=== PATIENT | male | born 1940 | race Caucasian/White ===

== ENCOUNTER 2019-09-03 16:53 | Emergency (ER) | payer MEDICARE, OTHER, SELFPAY ==
[2019-09-03 17:09] VITALS: BP 143/75; PULSE 55; RESP 16; TEMP 36.6; O2SAT 97
--- NOTE | 2019-09-03 17:24 | ED.SKABFB ---
HPI - Skin/Abscess/Foreign Bdy General Chief complaint: Skin/Abscess/Foreign Body Stated complaint: Tick Bite Time Seen by Provider: 09/03/19 17:10 Source: patient and RN notes reviewed Mode of arrival: ambulatory Limitations: no limitations History of Present Illness HPI narrative: Patient presents today complaining of redness, swelling, and pain to the right groin/anterior hip area. He was bit by a tick 3 days ago. The tick was embedded in his skin for approximately 48 hours, and was removed yesterday afternoon. Since this time, patient states the area has become more red and firm and describes the pain as burning and stinging. He has tried no medication for symptoms prior to arrival. Denies fever. MD complaint: insect bite/sting Related Data Home Medications Medication Instructions Recorded Confirmed amlodipine 09/03/19 aspirin [Adult Low Dose Aspirin] 81 mg PO DAILY 09/03/19 09/03/19 losartan 09/03/19 Allergies Allergy/AdvReac Type Severity Reaction Status Date / Time naproxen Allergy Unknown Unknown Verified 09/03/19 17:17 pneumococcal vaccine Allergy Unknown Rash Verified 09/03/19 17:17 Review of Systems Review of Systems: Narrative: CONSTITUTIONAL: Denies body aches, fever, chills, or sweats. EYES: Denies visual changes, redness, or discharge. ENT: Denies rhinorrhea, congestion, sore throat, or otalgia. CARDIOVASCULAR: Denies chest pain, palpitations, or edema. RESPIRATORY: Denies cough or dyspnea. GASTROINTESTINAL: Denies abdominal pain, nausea, vomiting, or diarrhea. GENITOURINARY: Denies dysuria or hematuria. SKIN: Redness, pain, tick bite to right groin MUSCULOSKELETAL: Denies back pain, joint pain, or myalgia. NEUROLOGIC: Denies headache, numbness, tingling, or weakness. PSYCH: Denies depression or anxiety. [facility] Past Medical History Medical History (Updated 09/03/19 @ 17:28 by Ni Trejo, [facility], ) Hypertension Family History Family History (Updated 01/23/16 @ 23:19 by DOCTOR UNKNOWN) Grandparent Cerebrovascular accident Mother Family history of diabetes mellitus in first degree relative Other Malignant neoplasm of prostate Social History Social History Smoking status: Former smoker Smoking end date: 06/27/78 Alcohol intake: current Comments At time of signature, I have reviewed and agree with nursing past medical, surgical, social and family history unless otherwise noted. Please see nursing chart for further information. There is no relevant family history pertinent to the presenting complaint Exam Narrative: Exam Narrative: GENERAL: Well-appearing, well-nourished, and in no acute distress. HEAD: Normocephalic, atraumatic. EYES: EOMI. No redness or drainage. Conjunctivae normal. ENT: Mucous membranes pink and moist. NECK: Normal AROM. Supple. No lymphadenopathy. CHEST: No respiratory distress. EXTREMITIES: Normal range of motion. No edema. SKIN: Warm, dry. 2 cm area of mild erythema and induration to the right anterior hip/right groin, with small scab in the center. No fluctuance noted. Mildly tender to palpation. No bull's-eye lesion. NEURO: No focal deficits. Alert and oriented x3. Gait steady. PSYCH: Normal affect. No signs of depression or anxiety. Course Vital Signs Vital signs: Vital Signs Temperature 97.9 F 09/03/19 17:09 Pulse Rate 55 L 09/03/19 17:09 Respiratory Rate 16 09/03/19 17:09 Blood Pressure 143/75 H 09/03/19 17:09 Pulse Oximetry 97 09/03/19 17:09 Temperature 97.9 F 09/03/19 17:09 Pulse Rate 55 L 09/03/19 17:09 Respiratory Rate 16 09/03/19 17:09 Blood Pressure 143/75 H 09/03/19 17:09 Pulse Oximetry 97 09/03/19 17:09 Reviewed. Pt has been instructed to follow up with his PCP regarding his elevated blood pressure today. MDM - Skin/Abscess/Foreign Bdy Differential Diagnosis Differential diagnosis: Likely abscess of skin or subcutaneous tissue, urticaria, cellulitis, insect bites and i
== END 2019-09-03 17:33 | disposition home or self-care (01) ==
PROVIDERS: Emergency Provider Nurse Practitioner; PCP Family Medicine
DX: S70.261A Insect bite (nonvenomous), right hip, initial encounter (principal); L03.115 Cellulitis of right lower limb; W57.XXXA Bitten or stung by nonvenomous insect and other nonvenomous arthropods, initial encounter; I10 Essential (primary) hypertension; N40.0 Benign prostatic hyperplasia without lower urinary tract symptoms
CPT/HCPCS: 99213; G0463

== ENCOUNTER 2020-02-12 14:51 | Outpatient (CLI) | payer MEDICARE, OTHER, SELFPAY ==
[2020-02-12 15:13] LABS: Basophils Absolute Auto 0.1 K/mm3 (0.0-0.1); Basophils Percent Auto 1.2 % (0.2-1.2); Eosinophils Absolute Auto 0.4 K/mm3 (0-0.3); Eosinophils Percent Auto 4.4 % (0-4.4); Hematocrit 41.6 % (42.0-52.0); Hemoglobin 14.4 g/dL (14.0-18.0); Immature Granulocyte Absolute 0.02 K/mm3 (0.00-0.031); Immature Granulocyte Percent A 0.2 % (0-0.5); Lymphocytes Absolute Auto 2.28 K/mm3 (0.9-3.2); Mean Corpuscular HGB Conc 34.6 g/dl (32-36); Mean Corpuscular Hemoglobin 29.9 pg (26-34); Mean Corpuscular Volume 86.5 fl (80-100); Mean Platelet Volume 10.9 fl (7.4-10.4); Monocytes Absolute Auto 0.8 K/mm3 (0.1-0.6); Monocytes Percent Auto 9.2 % (2.6-8.5); Neutrophils Absolute Auto 4.9 K/mm3 (1.3-6.7); Platelet Count Result 203 k/mm3 (150-375); Red Blood Count 4.81 M/mm3 (4.6-6.20); Red Cell Distribution Width 15.3 % (11.5-14.5); White Blood Count 8.5 K/mm3 (4.5-10.0)
[2020-02-12 15:23] LABS: Anion Gap 7 mmol/L (8-16); Blood Urea Nitrogen 26 mg/dL (9-20); Calcium 9.4 mg/dL (8.4-10.2); Carbon Dioxide 25 mmol/L (22-30); Chloride 101 mmol/L (98-107); Estimated Glomerular Filt Rate > 60; Glucose 94 mg/dL (75-110); Potassium 4.4 mmol/L (3.4-5.0); Sodium 133 mmol/L (137-145)
== END 2020-02-12 14:52 | disposition home or self-care (01) ==
PROVIDERS: PCP Family Medicine; Visit Provider Family Medicine
DX: I10 Essential (primary) hypertension (principal)
CPT/HCPCS: 36415; 80048; 84443; 85025

== ENCOUNTER 2020-06-03 12:10 | Emergency (ER) | payer MEDICARE, OTHER, SELFPAY ==
--- NOTE | ~2020-06-03 | XR_ITS ---
EXAMINATION: XR elbow LT min 3V DATE: 06/03/2020 12:43 INDICATION: Left elbow swelling. TECHNIQUE: 4 views of left elbow were obtained. COMPARISON: None. FINDINGS: Bone alignment is normal. No fracture. There is mild elbow joint osteoarthritis. No elbow j oint effusion. There is soft tissue swelling overlying olecranon, consistent with bursitis. IMPRESSION: 1. Mild left elbow osteoarthritis. 2. Olecranon bursitis. Reviewed, dictated and finalized at location B. FRONT END DEVELOPER
[2020-06-03 12:25] VITALS: BP 143/80; PULSE 52; RESP 18; TEMP 36.2; O2SAT 99
--- NOTE | 2020-06-03 12:42 | ED.EXTPRO ---
HPI - Extremity Problem General Chief complaint: Extremity Problem,Nontraumatic Stated complaint: Left elbow pain Time Seen by Provider: 06/03/20 12:35 Source: patient and RN notes reviewed Mode of arrival: ambulatory Limitations: no limitations History of Present Illness HPI Narrative: 79-year-old male presents to express care with complaints of swelling and discomfort to the left elbow for the past 2-3 weeks. Patient has noted swelling to the left olecranon process with no open areas to skin noted, no warmth or redness noted. Patient states that he had swelling similar to this after spider bite in December and it eventually went down, states that he had some redness around bite but never had any diffuse warmth or redness to elbow bursa. Patient reports that he has been doing some maintenance and cleaning on his RV and maybe has overdone it with his elbow. Patient states that he has not taken any OTC medications for discomfort. MD Complaint: joint swelling (left elbow) and joint paint Onset (ago): week(s) (2-3) Pain Consistency: intermittent Location: left and elbow Severity scale (1-10): 2 Quality: aching Radiation: none Relieving factors: rest Exacerbating factors: range of motion Associated symptoms: denies other symptoms Context: other (previous episode of left elbow bursa swelling) Related Data Home Medications Medication Instructions Recorded Confirmed aspirin [Adult Low Dose Aspirin] 81 mg PO DAILY 09/03/19 06/03/20 finasteride 5 mg PO DAILY 06/03/20 06/03/20 Allergies Allergy/AdvReac Type Severity Reaction Status Date / Time naproxen Allergy Unknown Unknown Verified 06/03/20 12:30 pneumococcal vaccine Allergy Unknown Rash Verified 06/03/20 12:30 PNEUMONIA VACCINE Allergy Severe SWELLING Uncoded 06/03/20 12:30 AND REDNESS. Review of Systems Review of Systems: Narrative: CONSTITUTIONAL: Denies fever, chills, or sweats. EYES: Denies visual changes, redness, or discharge. ENT: Denies rhinorrhea, congestion, sore throat, or otalgia. CARDIOVASCULAR: Denies chest pain, palpitations, or peripheral edema. RESPIRATORY: Denies cough or dyspnea. GASTROINTESTINAL: Denies abdominal pain, nausea, vomiting, or diarrhea. GENITOURINARY: Denies dysuria or hematuria. SKIN: Denies rash or itching. MUSCULOSKELETAL: Denies back pain,positive for left elbow joint pain, or myalgia. NEUROLOGIC: Denies headache, numbness, or weakness. PSYCHIATRIC: Denies anxiety or depression. All systems reviewed & are unremarkable except as noted in HPI and below PMFSH Past Medical History Medical History (Updated 06/03/20 @ 14:02 by Mellissa Bang NP) Enlarged prostate GERD (gastroesophageal reflux disease) Hypertension Stroke Surgical History Surgical History History of hernia repair History of knee surgery History of prostate surgery UROLIFT procedure History of shoulder surgery Family History Family History Grandparent Cerebrovascular accident Mother Family history of diabetes mellitus in first degree relative Other Malignant neoplasm of prostate Social History Social History Smoking status: Former smoker Smoking end date: 06/27/78 Alcohol intake: current Exam Narrative: Exam Narrative: GENERAL: Well-appearing, well-nourished, and in no acute distress. HEAD: Normocephalic, atraumatic. EYES: PERRLA and EOMI. ENT: Nares clear, no rhinorrhea or epistaxis. Mucous membranes moist. NECK: Supple. No lymphadenopathy CHEST: Clear to auscultation. No respiratory distress. SaO2 99% on room air HEART: Regular rate and rhythm. No murmur heard. Normal peripheral pulses. ABDOMEN: Soft, nontender, nondistended, normal active bowel sounds. EXTREMITIES: Normal range of motion. No acute edema except to bursa of left elbow which is swollen and tender to palpatio
== END 2020-06-03 13:18 | disposition home or self-care (01) ==
PROVIDERS: Emergency Provider Registered Nurse; PCP Family Medicine
DX: M70.22 Olecranon bursitis, left elbow (principal); M19.022 Primary osteoarthritis, left elbow; Z87.891 Personal history of nicotine dependence; N40.0 Benign prostatic hyperplasia without lower urinary tract symptoms; K21.9 Gastro-esophageal reflux disease without esophagitis; I10 Essential (primary) hypertension; Z86.73 Personal history of transient ischemic attack (TIA), and cerebral infarction without residual deficits; Z79.82 Long term (current) use of aspirin
CPT/HCPCS: 73080; 99213; G0463

== ENCOUNTER 2020-07-23 09:19 | Outpatient (CLI) | payer MEDICARE, OTHER, SELFPAY ==
[2020-07-23 09:56] LABS: Basophils Absolute Auto 0.1 K/mm3 (0.0-0.1); Basophils Percent Auto 1.1 % (0.2-1.2); Eosinophils Absolute Auto 0.6 K/mm3 (0-0.3); Eosinophils Percent Auto 7.8 % (0-4.4); Hematocrit 43.5 % (42.0-52.0); Hemoglobin 14.6 g/dL (14.0-18.0); Immature Granulocyte Absolute 0.03 K/mm3 (0.00-0.031); Immature Granulocyte Percent A 0.4 % (0-0.5); Lymphocytes Percent Auto 28.4 % (18.3-44.2); Mean Corpuscular HGB Conc 33.6 g/dl (32-36); Mean Corpuscular Volume 86.5 fl (80-100); Mean Platelet Volume 10.2 fl (7.4-10.4); Monocytes Absolute Auto 0.8 K/mm3 (0.1-0.6); Monocytes Percent Auto 10.7 % (2.6-8.5); Neutrophils Absolute Auto 3.8 K/mm3 (1.3-6.7); Neutrophils Percent Auto 51.6 % (45.5-73.1); Platelet Count Result 188 k/mm3 (150-375); Red Blood Count 5.03 M/mm3 (4.6-6.20); Red Cell Distribution Width 14.6 % (11.5-14.5); White Blood Count 7.4 K/mm3 (4.5-10.0)
[2020-07-23 10:12] LABS: Anion Gap 5 mmol/L (8-16); Blood Urea Nitrogen 24 mg/dL (9-20); Carbon Dioxide 29 mmol/L (22-30); Chloride 96 mmol/L (98-107); Cholesterol 159 mg/dL (0-200); Estimated Glomerular Filt Rate > 60; Glucose 107 mg/dL (75-110); HDL Direct 44 mg/dL; Potassium 4.9 mmol/L (3.4-5.0); Sodium 130 mmol/L (137-145); Triglycerides 77 mg/dL (<150)
[2020-07-23 10:23] LABS: LDL Cholesterol Direct 85 mg/dL
== END 2020-07-23 09:20 | disposition home or self-care (01) ==
PROVIDERS: PCP Family Medicine; Visit Provider Family Medicine
DX: I10 Essential (primary) hypertension (principal); Z13.220 Encounter for screening for lipoid disorders
CPT/HCPCS: 36415; 80048; 80061; 84443; 85025

== ENCOUNTER 2020-08-26 17:10 | Observation (INO) | payer MEDICARE, OTHER, SELFPAY ==
--- NOTE | ~2020-08-26 | MR_ITS ---
EXAMINATION: MR brain/brain stem wo con DATE: 08/27/2020 08:23 INDICATION: Right hemiparesis. TECHNIQUE: Magnetic resonance imaging (MRI) of the brain and brainstem was performed without intraven ous contrast. Sequences included sagittal and axial T1-weighted FSE, axial diffusion-weighted FS EPI, axial T2*-weighted GRE, axial T2-weighted FLAIR Propeller, and axial T2-weighted Propeller. Apparent diffusion coefficient (ADC) maps were created. COMPARISON: Head CT 08/26/2020 FINDINGS: There are scattered areas of nonspecific increased T2-weighted signal intensity in the cere bral white matter and grace. There is no intracranial hemorrhage, acute infarction, or abnormal intrac ranial mass lesion. The ventricles are normal in size. There is mild mucosal thickening in the parana allie sinuses. There are likely changes of ocular lens replacement surgeries. The mastoid air cells are normal. IMPRESSION: 1. Moderate nonspecific cerebral white matter disease and pontine disease, which likely represents ch ronic small vessel ischemic disease. Reviewed, dictated and finalized at location A. OMER CONTACT SALES ASSOCIATE IMPRESSION: 1. Moderate nonspecific cerebral white matter disease and pontine disease, whic h likely represents chronic small vessel ischemic disease.
--- NOTE | ~2020-08-26 | CT_ITS ---
EXAMINATION: CT brain wo con INDICATION: Right-sided weakness and headache COMPARISON: None TECHNIQUE: Standard unenhanced head CT. The dose-length product (DLP) was 681.00 mGy-cm. The mA was a djusted according to patient size. Iterative reconstruction technique was employed. FINDINGS: There is no acute intraparenchymal hemorrhage. No evidence of mass lesion. No evidence of a cute infarction. There is mild periventricular and subcortical hypodensity probably related to small vessel ischemic disease. There is mild prominence of the sulci and ventricles related to cerebral atr ophy. Intracranial calcified cerebral atherosclerosis is noted. There are no extra-axial collections. There is no mass effect or midline shift. Changes in the globes are likely from ocular lens surgery. The visualized sinuses and mastoid air cells are well aerated. IMPRESSION: 1. No acute intracranial abnormality. 2. Age related findings. As per stroke protocol, I called these results to the Emergency Department, and discussed with Dr. Ralf MD at 1737 hours on 08/26/2020. Reviewed, dictated and finalized at location A. FACTURING CLERK IMPRESSION: 1. No acute intracranial abnormality. 2. Age related findings. As per stroke protocol, I called these results to the Emergency Department, and discussed with Dr. Brenda Aguillon MD at 1737 hours on 08/26/2020.
--- NOTE | ~2020-08-26 | XR_ITS ---
EXAMINATION: XR chest 1V portable INDICATION: Right-sided weakness and confusion TECHNIQUE: Portable AP chest at 1745 hours COMPARISON: 11/04/2016 FINDINGS: There are patchy opacities of the mid and lower lung zones. There is a possible nodule of t he left upper lobe projecting over the medial aspect of the first rib. No pleural effusion or pneumot horax is identified. The heart size is normal for technique. IMPRESSION: 1. Patchy opacities of the mid and lower lung zones, consistent with atelectasis versus pneumonia. 2. Possible nodule of the left upper lobe. Follow-up with nonemergent CT is recommended. Reviewed, dictated and finalized at location A. PARTS COUNTER PERSON IMPRESSION: 1. Patchy opacities of the mid and lower lung zones, consistent with atelectasi s versus pneumonia. 2. Possible nodule of the left upper lobe. Follow-up with nonemergent CT is rec ommended.
--- NOTE | ~2020-08-26 | CT_ITS ---
EXAMINATION: CTA brain carotid DATE: 08/26/2020 18:19 INDICATION: Right-sided weakness TECHNIQUE: Computed tomographic angiography (CTA) of the head was performed without and with 100 mL O mnipaque-350 intravenous contrast. CTA of the neck was performed with intravenous contrast. The dose- length product was 1283.54 mGy-cm. Maximum intensity projection and volume rendered 3D-reconstruction s were created by the technologist on a separate workstation. Automated exposure control and iterativ e reconstruction technique were employed. COMPARISON: Noncontrast CT from today FINDINGS: HEAD CTA: There is no acute intraparenchymal hemorrhage. No evidence of mass lesion. No evidence of a cute infarction. There is mild periventricular and subcortical hypodensity probably related to small vessel ischemic disease. There is mild prominence of the sulci and ventricles related to cerebral atr ophy. Intracranial calcified cerebral atherosclerosis is noted. There are no extra-axial collections. There is no mass effect or midline shift. The orbits and soft tissues are unremarkable. There is par tial opacification of the left maxillary sinus. There is no significant stenosis of the basilar artery or posterior cerebral arteries. There is no si gnificant stenosis of the intracranial internal carotid arteries or the anterior or middle cerebral a rteries. The anterior communicating artery artery is normal. The posterior communicating arteries are hypoplastic. There is no aneurysm. NECK CTA: There is a 3 mm nodule in the left lobe of the thyroid. The submandibular and parotid gland s are symmetric. There is no lymphadenopathy. There are no masses identified. The airway is unremarka ble. There are no osseous abnormalities. The superior mediastinum is unremarkable. There is a 2.6 x 1 .1 cm spiculated opacity of the left lung apex. There is 0% stenosis of the proximal right internal carotid artery relative to normal distal artery l umen diameter (NASCET criteria). There is 0% stenosis of the proximal left internal carotid artery re lative to normal distal artery lumen diameter. IMPRESSION: 1. No acute intracranial abnormality. Hypoplastic posterior communicating arteries. 2. 0% stenosis of the proximal right internal carotid artery relative to normal distal artery lumen d iameter (NASCET criteria). 3. 0% stenosis of the proximal left internal carotid artery relative to normal distal artery lumen di ameter. 4. Possible nodule versus scarring in the left lung apex. Recommend follow-up low-dose chest CT in th ree months. Reviewed, dictated and finalized at location A. EY ASSOCIATE IMPRESSION: 1. No acute intracranial abnormality. Hypoplastic posterior communicating arter ies. 2. 0% stenosis of the proximal right internal carotid artery relative to normal distal artery lumen diameter (NASCET criteria). 3. 0% stenosis of the proximal left internal carotid artery relative to normal distal artery lumen diameter. 4. Possible nodule versus scarring in the left lung apex. Recommend follow-up l ow-dose chest CT in three months.
[2020-08-26 17:14] VITALS: BP 158/93; PULSE 54; RESP 16; TEMP 36.3; O2SAT 98
--- NOTE | 2020-08-26 17:18 | ECG_ITS ---
Measurements Intervals [place] Rate: 53 P: -12 ME: 176 QRS: -5 QRSD: 97 T: 23 QT: 402 QTc: 380 Interpretive Statements SINUS BRADYCARDIA ATRIAL PREMATURE COMPLEX BASELINE ARTIFACT- I, II, III, AVF BORDERLINE ECG Electronically Signed On 08-26-2020 20:32:41 RURAL SOCIOLOGIST by Oc Felder D.O.
--- NOTE | 2020-08-26 17:36 | ED.GENADULT ---
HPI - General Adult General Chief complaint: Neuro Symptoms/Deficit Stated complaint: reports headache and difficulty speaking Time Seen by Provider: 08/26/20 17:24 Source: patient and family History of Present Illness HPI narrative: Patient is a 80 y/o male complaining of slurred speech, left sided headache and right sided weakness. He states that his slurred speech started around 11:00 AM and resolved after a few minutes. Shortly after that, he developed a sharp headache behind his left eye. He rates his headache as 9/10. He took Tylenol which did not help. He went out with his dog around 12:00 PM and then noticed some weakness in right arm and right leg. He is not sure about the exact time of onset of weakness. His weakness has improved, but not completely resolved. Related Data Home Medications Medication Instructions Recorded Confirmed finasteride 5 mg PO DAILY 06/03/20 07/17/20 aspirin 81 mg tablet,delayed 81 mg PO DAILY 07/01/20 07/17/20 release Allergies Allergy/AdvReac Type Severity Reaction Status Date / Time naproxen Allergy Unknown Unknown Verified 08/26/20 17:33 pneumococcal vaccine Allergy Unknown Rash Verified 08/26/20 17:33 Review of Systems Constitutional: Constitutional: Denies chills, Denies fever(s), Reports headache(s) and Reports weakness Eyes: Eyes: Denies blurry vision ENT: Reports headache(s) and Denies neck pain Cardiovascular: Cardiovascular: Denies chest pain and Denies dyspnea Respiratory: Respiratory: Denies cough and Denies dyspnea Gastrointestinal: Gastrointestinal: Denies abdominal pain, Denies diarrhea, Denies nausea and Denies vomiting Genitourinary: Genitourinary: Denies hematuria and Denies dysuria Musculoskeletal: Musculoskeletal: Denies back pain and Denies neck pain Neurologic: Reports Abnormal speech present, Reports headache(s) and Reports weakness PMFSH Past Medical History Medical History Arthritis BMI 31.0-31.9,adult Coughing Diarrhea Dizziness Enlarged prostate GERD (gastroesophageal reflux disease) Hypertension Light headedness Screen for colon cancer Stroke Surgical History Surgical History History of hernia repair History of knee surgery History of prostate surgery UROLIFT procedure History of shoulder surgery Family History Family History Grandparent Cerebrovascular accident Mother Family history of diabetes mellitus in first degree relative Other Malignant neoplasm of prostate Social History Social History Smoking status: Former smoker Smoking end date: 06/27/78 Alcohol intake: current Exam Const: General: no acute distress and well developed Orientation/consciousness: oriented to person, oriented to place, oriented to time and patient oriented x3 HENMT: Head: normocephalic Ears: external ears normal General nose exam: Normal external nose present Eyes: General: appearance normal, both eyes and all related structures Conjunctivae: conjunctivae normal Neck: Neck: normal visual inspection and full ROM Chest: Chest palpation & inspection: normal inspection of the chest and no tenderness Resp: Effort & Inspection: normal respiratory effort Auscultation: clear to auscultation bilaterally Cardio: Rate: regular rate Rhythm: regular rhythm GI: GI Palp: No abdominal tenderness and Yes Soft to palpation Skin: General skin exam: normal color and turgor normal Neuro: General: oriented to person, oriented to place, oriented to time and patient oriented x3 Cognition (Neuro): normal cognition Extrem: General: normal to inspection, full ROM and no pedal edema Psych: Appearance: grossly normal Mental Status: mental status grossly normal Affect: normal affect Course Consultations Consultation #1: Discussed kellie
[2020-08-26 17:37] LABS: Glucose Point of Care 101 (65-105)
[2020-08-26 17:38] LABS: Basophils Absolute Auto 0.1 K/mm3 (0.0-0.1); Eosinophils Absolute Auto 0.4 K/mm3 (0-0.3); Eosinophils Percent Auto 4.8 % (0-4.4); Hematocrit 42.4 % (42.0-52.0); Hemoglobin 14.7 g/dL (14.0-18.0); Immature Granulocyte Absolute 0.03 K/mm3 (0.00-0.031); Immature Granulocyte Percent A 0.3 % (0-0.5); Mean Corpuscular HGB Conc 34.7 g/dl (32-36); Mean Corpuscular Hemoglobin 29.7 pg (26-34); Mean Corpuscular Volume 85.7 fl (80-100); Mean Platelet Volume 10.6 fl (7.4-10.4); Monocytes Absolute Auto 0.9 K/mm3 (0.1-0.6); Monocytes Percent Auto 10.2 % (2.6-8.5); Neutrophils Absolute Auto 5.6 K/mm3 (1.3-6.7); Neutrophils Percent Auto 61.7 % (45.5-73.1); Platelet Count Result 200 k/mm3 (150-375); Red Blood Count 4.95 M/mm3 (4.6-6.20); Red Cell Distribution Width 14.8 % (11.5-14.5); White Blood Count 9.1 K/mm3 (4.5-10.0)
[2020-08-26 17:39] VITALS: BP 185/95; PULSE 61; RESP 11; O2SAT 96
[2020-08-26 17:50] LABS: Anion Gap 8 mmol/L (8-16); Blood Urea Nitrogen 23 mg/dL (9-20); Calcium 9.7 mg/dL (8.4-10.2); Carbon Dioxide 26 mmol/L (22-30); Chloride 96 mmol/L (98-107); Estimated CRCL calculation 58 ml/min; Estimated Glomerular Filt Rate > 60; Glucose 108 mg/dL (75-110); Potassium 4.2 mmol/L (3.4-5.0); Sodium 130 mmol/L (137-145)
[2020-08-26 17:51] LABS: INR 0.9; Prothrombin Time 12.3 Seconds (11.1-14.7)
[2020-08-26 17:52] LABS: Partial Thromboplastin Time 27.3 SECONDS (22.3-36.8)
[2020-08-26 18:02] LABS: Troponin I < 0.012 ng/mL (0.000-0.034)
[2020-08-26 18:31] VITALS: BP 189/89; PULSE 53; RESP 16; O2SAT 97
[2020-08-26 19:39] VITALS: BP 188/90; PULSE 58; RESP 16; O2SAT 97
[2020-08-26 21:10] VITALS: BP 171/80; PULSE 62; RESP 18; TEMP 36; O2SAT 98; BMI 31.8
--- NOTE | 2020-08-26 21:10 | ADMGEN ---
This patient, Thien iTneo Ysabel, was admitted to Medical Room 341-01. Patient/family oriented to hospital policies and general routines including ID bracelet, bed and alarms, visiting hours, pain management, procedures, bathroom and other care routines, personal items, smoking policy, room service/diet, and visiting hours. Information on how to activate the Rapid Response Team has been discussed. Patient/Family are encouraged to report perceived risks to care and to ask questions if they do not understand what they are told or what they should do.
[2020-08-26 22:27] VITALS: PULSE 66
[2020-08-27] VITALS: BP 140/76; PULSE 53; PULSE 92; RESP 16; TEMP 36.4; O2SAT 97
--- NOTE | 2020-08-27 00:14 | PM.IMHP ---
H&P: HPI History of Present Illness Date/Time: 08/27/20 00:14 Chief Complaint: Right-sided weakness Narrative: Thien Tineo Sr. is a 80 year old male of having a a past medical history of a TIA in the past. The patient takes a daily baby aspirin. The patient stated that 30 years ago he had a mild TIA the to come couple days to get over but had no residual. The patient does have a history of hypertension. The patient came into the emergency room today with slurred speech, left sided headache and right-sided weakness. The patient stated that he took Tylenol and naproxen to help with the headache. His speech was slurred around 11:00 a.m. and then resolved after few minutes. Shortly after that he developed a short headache behind his left eye his pain was 9/10. The Tylenol did not help him. The patient would not toe walk his dog around 12:00 p.m. and that is when he noticed some weakness to his right arm and right leg. He has had some back pain in the past and had received treatment from a chiropractor and physical therapy which resolved the lower back pain. Head and neck CTA was read as 1. No acute intracranial abnormality. Hypoplastic posterior communicating arteries. 2. 0% stenosis of the proximal right internal carotid artery relative to normal distal artery lumen diameter (NASCET criteria). 3. 0% stenosis of the proximal left internal carotid artery relative to normal distal artery lumen diameter. 4. Possible nodule versus scarring in the left lung apex. Recommend follow-up low-dose chest CT in three months. Chest x-ray was read as 1. Patchy opacities of the mid and lower lung zones, consistent with atelectasis versus pneumonia. 2. Possible nodule of the left upper lobe. Follow-up with nonemergent CT is recommended. Head CT 1. No acute intracranial abnormality. 2. Age related findings. The patient was given Fioricet without any relief. Patient is being admitted to observation on the date of service of 08/26/2020 Review of Systems Review of Systems: All systems reviewed & are unremarkable except as noted in HPI and below Constitutional: Constitutional: Reports as per HPI and Reports no additional constitutional complaints Eyes: Eyes: Reports as per HPI and Reports no additional eye complaints ENT: Reports system reviewed and no additional complaints, except as documented and Reports Normal hearing present Cardiovascular: Cardiovascular: Reports no additional cardiovascular complaints Respiratory: Respiratory: Reports no additional respiratory complaints and Reports no additional respiratory complaints Gastrointestinal: Gastrointestinal: Reports as per HPI and Reports no additional gastrointestinal complaints Musculoskeletal: Musculoskeletal: Reports no additional musculoskeletal complaints Integumentary/Breasts: Skin/Breast: Reports system reviewed and no additional complaints, except as docu and Reports as per HPI Neurologic: Reports system reviewed and no additional complaints, except as documented, Reports as per HPI and Reports Normal hearing present Psychiatric: Psychiatric: Reports no additional psychiatric complaints and Reports as per HPI Endocrine: Endocrine: Reports no additional endocrine complaints Hematologic/Lymphatic: Hematologic/Lymphatic: Reports no additional hematologic/lymphatic complaints Allergic/Immunologic: Allergic/Immunologic: Reports no additional allergic/immunologic complaints [facility] Past Medical History Medical History Arthritis BMI 31.0-31.9,adult Coughing Diarrhea Dizziness Enlarged prostate GERD (gastroesophageal reflux disease) Hypertension Light headedness Screen for colon cancer Stroke TIA 30 years ago Surgical History Surgical History History of hernia repair History of knee surgery History of prostate surgery UROLIFT procedure History of shoulder surgery Famil
[2020-08-27 04:00] VITALS: BP 142/80; PULSE 54; PULSE 92; RESP 14; TEMP 36.8; O2SAT 97
--- NOTE | 2020-08-27 06:00 | ECHO_ITS ---
Patient Info Name: Thien Tineo Age: 80 years : 1940 Gender: Male Ht: 70 in Wt: 222 lbs BSA: 2.26 m2 HR: 54 bpm BP: 142 / 80 mmHg Technical Quality: Good Exam Date: 08/27/2020 10:55 AM Exam Location: [facility] Pulmonary Exam Room: 341 Patient Status: Inpatient Admit Date: 08/26/2020 Staff Ordering Physician: Brenda Aguillon MD Sales Team Recruiter: Gwen Abbott RDCS Attending Provider: El Phelps MD Referring Physician: Pal CLAYTON; Exam Type: CA echo doppler color flow Study Info Indications - right side weakness slurred speech Complete two-dimensional, color flow and Doppler transthoracic echocardiogram is performed. Summary 1. Complete two-dimensional, color flow and Doppler transthoracic echocardiogram is performed. 2. Left ventricular chamber dimension is normal. 3. Left ventricular systolic function is normal, estimated at 60-65%. 4. The left ventricular diastolic function is grade I diastolic dysfunction. 5. E/e' 8 is minimally elevated. 6. Left atrial chamber dimension is mildly enlarged. 7. Right atrial chamber dimension is mildly enlarged. 8. There is mild aortic valve sclerosis. 9. There is mild mitral valve regurgitation. 10. There is mild tricuspid valve regurgitation. 11. No pulmonary hypertension, estimated pulmonary arterial systolic pressure is 39 mmHg. 12. There is mild pulmonic regurgitation. Left Ventricle E/e' 8 is minimally elevated. Left ventricular chamber dimension is normal. Left ventricular systolic function is normal, estimated at 60-65%. The left ventricular diastolic function is grade I diastolic dysfunction. Right Ventricle Right ventricular chamber dimension is normal. Right ventricular systolic function is normal. Left Atria Left atrial chamber dimension is mildly enlarged. Right Atria Right atrial chamber dimension is mildly enlarged. Aortic Valve The aortic valve is trileaflet. There is mild aortic valve sclerosis. There is no aortic valve stenosis. There is no aortic valve regurgitation. Pulmonic Valve There is mild pulmonic regurgitation. Mitral Valve There is no mitral valve stenosis. There is mild mitral valve regurgitation. Tricuspid Valve There is mild tricuspid valve regurgitation. No pulmonary hypertension, estimated pulmonary arterial systolic pressure is 39 mmHg. Pericardium/Pleural There is no pericardial effusion. Inferior Vena Cava Normal inferior vena cava with >50% collapse upon inspiration consistent with normal right atrial pressure, 5 mmHg. Aorta The aortic root size at the sinus of Valsalva is normal. Left Ventricular Outflow Tract Name Value Normal LVOT 2D LVOT Diameter 2.1 cm LVOT Doppler LVOT Peak Gradient 6 mmHg LVOT Mean Gradient 3 mmHg LVOT VTI 26 cm LVOT VTI/AV VTI Ratio 0.6 LVOT Stroke Volume 90 ml LVOT CO 16.4 l/min LVOT CI 7.2 l/min/m2 Pulmonic Valve -----
[2020-08-27] MEDS: OPTI-GEN TAB 1 TABLET PO (08:51)
[2020-08-27] MEDS: ASPIRIN 81 MG ENTERIC TABLET PO (08:51)
[2020-08-27] MEDS: FINASTERIDE 5 MG TABLET PO (08:51)
[2020-08-27] MEDS: LOSARTAN POTASSIUM 50 MG TABLET PO (08:51)
[2020-08-27 12:00] VITALS: PULSE 56
[2020-08-27 14:00] VITALS: BP 130/85; PULSE 72; RESP 16; TEMP 36.7; O2SAT 99
--- NOTE | 2020-08-27 14:19 | PM.DS ---
DS: Admitting Diagnosis Admitting Diagnosis Admitting Diagnosis: Chief Complaint: Right-sided weakness DS: Summary Hospital Course Reason for hospitalization: Chief Complaint: Right-sided weakness Narrative: Thein Tineo Sr. is a 80 year old male of having a a past medical history of a TIA in the past. The patient takes a daily baby aspirin. The patient stated that 30 years ago he had a mild TIA the to come couple days to get over but had no residual. The patient does have a history of hypertension. The patient came into the emergency room today with slurred speech, left sided headache and right-sided weakness. The patient stated that he took Tylenol and naproxen to help with the headache. His speech was slurred around 11:00 a.m. and then resolved after few minutes. Shortly after that he developed a short headache behind his left eye his pain was 9/10. The Tylenol did not help him. The patient would not toe walk his dog around 12:00 p.m. and that is when he noticed some weakness to his right arm and right leg. He has had some back pain in the past and had received treatment from a chiropractor and physical therapy which resolved the lower back pain. Head and neck CTA was read as 1. No acute intracranial abnormality. Hypoplastic posterior communicating arteries. 2. 0% stenosis of the proximal right internal carotid artery relative to normal distal artery lumen diameter (NASCET criteria). 3. 0% stenosis of the proximal left internal carotid artery relative to normal distal artery lumen diameter. 4. Possible nodule versus scarring in the left lung apex. Recommend follow-up low-dose chest CT in three months. Chest x-ray was read as 1. Patchy opacities of the mid and lower lung zones, consistent with atelectasis versus pneumonia. 2. Possible nodule of the left upper lobe. Follow-up with nonemergent CT is recommended. Head CT 1. No acute intracranial abnormality. 2. Age related findings. The patient was given Fioricet without any relief. Patient is being admitted to observation on the date of service of 08/26/2020 Hospital Course: Chief Complaint: Right-sided weakness Narrative: Thien Tineo Sr. is a 80 year old male of having a a past medical history of a TIA in the past. The patient takes a daily baby aspirin. The patient stated that 30 years ago he had a mild TIA the to come couple days to get over but had no residual. The patient does have a history of hypertension. The patient came into the emergency room today with slurred speech, left sided headache and right-sided weakness. The patient stated that he took Tylenol and naproxen to help with the headache. His speech was slurred around 11:00 a.m. and then resolved after few minutes. Shortly after that he developed a short headache behind his left eye his pain was 9/10. The Tylenol did not help him. The patient would not toe walk his dog around 12:00 p.m. and that is when he noticed some weakness to his right arm and right leg. He has had some back pain in the past and had received treatment from a chiropractor and physical therapy which resolved the lower back pain. Head and neck CTA was read as 1. No acute intracranial abnormality. Hypoplastic posterior communicating arteries. 2. 0% stenosis of the proximal right internal carotid artery relative to normal distal artery lumen diameter (NASCET criteria). 3. 0% stenosis of the proximal left internal carotid artery relative to normal distal artery lumen diameter. 4. Possible nodule versus scarring in the left lung apex. Recommend follow-up low-dose chest CT in three months. Chest x-ray was read as 1. Patchy opacities of the mid and lower lung zones, consistent with atelectasis versus pneumonia. 2. Possible nodule of the left upper lobe. Follow-up with nonemergent CT is recommended. Head CT 1. No acute intracranial abnormality. 2. Age related findings. The patient was given Fioricet without any relief. Patient is being admitted to observation on the glen
== END 2020-08-27 15:00 | disposition home or self-care (01) ==
LOC: ANHED 17:51 → ANH3MED 20:04
PROVIDERS: Admitting Provider Internal Medicine; Emergency Provider Emergency Medicine; PCP Family Medicine; Visit Provider Family Medicine
DX: G81.94 Hemiplegia, unspecified affecting left nondominant side (principal); Z86.73 Personal history of transient ischemic attack (TIA), and cerebral infarction without residual deficits; I10 Essential (primary) hypertension; N40.0 Benign prostatic hyperplasia without lower urinary tract symptoms; R51.9 Headache, unspecified; R91.8 Other nonspecific abnormal finding of lung field; R53.1 Weakness; Z79.82 Long term (current) use of aspirin; Z87.891 Personal history of nicotine dependence
CPT/HCPCS: 36415; 70450; 70496; 70498; 70551; 71045; 80048; 82948; 84484; 85025; 85610; 85730; 93005; 93306; 97161; 97165; 99285; A9270; G0378; Q9967

== ENCOUNTER 2020-09-28 13:16 | Inpatient (IN) | payer MEDICARE, OTHER, SELFPAY ==
[2020-09-28] VITALS (10 sets, daily range): BP systolic 167–210; BP diastolic 77–99; PULSE 51–64; RESP 13–25; TEMP 36.6; O2SAT 95–98; BMI 33.1; BMI 32.5
--- NOTE | ~2020-09-28 | CT_ITS ---
EXAMINATION: CT brain wo con DATE: 09/28/2020 16:32 INDICATION: Left-sided headache. TECHNIQUE: Computed tomography (CT) of the head was performed without intravenous contrast. The mA wa s adjusted according to patient size. Iterative reconstruction technique was employed. The dose-lengt h product was 681.00 mGy-cm. COMPARISON: Head CT 08/26/2020, brain MRI 08/27/2020 FINDINGS: There are scattered areas of low attenuation in the cerebral white matter. There is a lacun ar infarct in left thalamus. There is no intracranial hemorrhage or abnormal mass lesion. The ventric les are normal in size. There are likely changes of ocular lens replacement surgeries. There is mild mucosal thickening in the paranasal sinuses. The mastoid air cells are normal. IMPRESSION: 1. Age-indeterminant lacunar infarct of left thalamus. 2. Stable moderate nonspecific cerebral white matter disease, which likely represents chronic small v essel ischemic disease. Reviewed, dictated and finalized at location A. IMPRESSION: 1. Age-indeterminant lacunar infarct of left thalamus. 2. Stable moderate nonspecific cerebral white matter disease, which likely repr esents chronic small vessel ischemic disease.
--- NOTE | ~2020-09-28 | CT_ITS ---
EXAMINATION: CT brain wo con EXAM DATE: 09/30/2020 16:50 INDICATION: Decreased responsiveness. History of strokes. TECHNIQUE: Spiral CT of the head was performed without contrast. Axial, coronal and sagittal images were reviewed. The dose-length product (DLP) for this examination was 681.00 mGy-cm. The exposure w as tailored according to patient size, and iterative reconstruction (ASIR) was used as additional dos e reduction technique. Comparison is made to prior examination from 09/28/2020. Correlation was made wi brain MR from 09/29. FINDINGS: There is no acute intraparenchymal hemorrhage. No evidence of intraparenchymal brain mass lesion. No evidence of acute infarction. Please note that initial head CT has limited sensitivity f or small or acute infarctions. Small thalamic hypodensity previously reported is not identified on is exam, no infarct was seen on brain MR from 09/29/2020. There is moderate periventricular and subcor tical hypodensity, nonspecific but probably related to small vessel ischemic disease. There is mode rate prominence of the sulci and ventricles related to cerebral atrophy. There is intracranial linn tid arteriosclerosis. There are no extra-axial collections. There is no mass effect or midline shif t. Patient has had bilateral ocular lens surgery. Soft tissue is unremarkable. The visualized sinu ses and mastoid air cells are well aerated. IMPRESSION: 1. No acute intracranial findings. 2. Chronic age related findings. Reviewed, dictated and finalized at location A.
--- NOTE | ~2020-09-28 | MR_ITS ---
EXAMINATION: MR brain/brain stem wo/w con DATE: 09/29/2020 12:18 INDICATION: Cerebrovascular accident. Speech deficit. Headache. TECHNIQUE: Magnetic resonance imaging (MRI) of the brain and brainstem was performed without and with 20 mL MultiHance intravenous contrast. Sequences included sagittal and axial T1-weighted FSE, axial diffusion-weighted FS EPI, axial T2*-weighted GRE, axial T2-weighted FLAIR Propeller, and axial T2-we ighted Propeller. Postcontrast sequences included axial and coronal T1-weighted FSE. Apparent diffusi on coefficient (ADC) maps were created. COMPARISON: Brain MRI 08/27/2020, and CT 09/28/2020 FINDINGS: There is no intracranial hemorrhage, acute infarction, or abnormal intracranial mass lesion . There are scattered areas of nonspecific increased T2-weighted signal intensity in the cerebral whi te matter and grace. There is a small old infarct in right cerebellum. The ventricles are normal in si ze. There are likely changes of ocular lens replacement surgeries. There is mild mucosal thickening i n the paranasal sinuses. The mastoid air cells are normal. IMPRESSION: 1. Small old infarct in right cerebellum. 2. Stable moderate nonspecific cerebral white matter disease and pontine disease, which likely repres ents chronic small vessel ischemic disease. Reviewed, dictated and finalized at location A. IMPRESSION: 1. Small old infarct in right cerebellum. 2. Stable moderate nonspecific cerebral white matter disease and pontine diseas e, which likely represents chronic small vessel ischemic disease.
--- NOTE | ~2020-09-28 | XR_ITS ---
EXAMINATION: XR chest 1V portable DATE: 09/28/2020 16:40 INDICATION: Hypertension. TECHNIQUE: A single frontal view of the chest was obtained. COMPARISON: Chest single view 08/26/2020 FINDINGS: There is mild scarring at the lung apices. There is mild scarring at left lung base. No ple ural effusion or pneumothorax. The heart size is normal. IMPRESSION: 1. Mild scarring at the lung apices and mild atelectasis at left lung base. Reviewed, dictated and finalized at location A.
--- NOTE | 2020-09-28 16:16 | ECG_ITS ---
Measurements Intervals [place] Rate: 57 P: -22 RI: 171 QRS: -18 QRSD: 88 T: 25 QT: 392 QTc: 382 Interpretive Statements SINUS BRADYCARDIA ATRIAL PREMATURE COMPLEX BORDERLINE ECG Electronically Signed On 09-28-2020 17:21:20 CDT by Oc Felder D.O.
[2020-09-28 16:33] LABS: Basophils Absolute Auto 0.1 K/mm3 (0.0-0.1); Basophils Percent Auto 0.9 % (0.2-1.2); Eosinophils Absolute Auto 0.4 K/mm3 (0-0.3); Eosinophils Percent Auto 3.9 % (0-4.4); Hematocrit 42.2 % (42.0-52.0); Hemoglobin 14.1 g/dL (14.0-18.0); Immature Granulocyte Absolute 0.02 K/mm3 (0.00-0.031); Immature Granulocyte Percent A 0.2 % (0-0.5); Lymphocytes Absolute Auto 2.37 K/mm3 (0.9-3.2); Lymphocytes Percent Auto 26.2 % (18.3-44.2); Mean Corpuscular HGB Conc 33.4 g/dl (32-36); Mean Corpuscular Hemoglobin 29.5 pg (26-34); Mean Corpuscular Volume 88.3 fl (80-100); Mean Platelet Volume 10.2 fl (7.4-10.4); Monocytes Absolute Auto 1.1 K/mm3 (0.1-0.6); Monocytes Percent Auto 12.3 % (2.6-8.5); Neutrophils Absolute Auto 5.1 K/mm3 (1.3-6.7); Neutrophils Percent Auto 56.5 % (45.5-73.1); Platelet Count Result 206 k/mm3 (150-375); Red Blood Count 4.78 M/mm3 (4.6-6.20); Red Cell Distribution Width 15.3 % (11.5-14.5)
[2020-09-28] MEDS: SODIUM CHLORIDE 0.9% IV 500 ML 999 ML IV CONT (16:40)
[2020-09-28 16:43] LABS: INR 0.9; Prothrombin Time 12.3 Seconds (11.1-14.7)
[2020-09-28 16:44] LABS: Glucose Point of Care 109 (65-105)
[2020-09-28 16:45] LABS: Anion Gap 5 mmol/L (8-16); Blood Urea Nitrogen 30 mg/dL (9-20); Calcium 9.3 mg/dL (8.4-10.2); Carbon Dioxide 25 mmol/L (22-30); Chloride 102 mmol/L (98-107); Estimated CRCL calculation 58 ml/min; Estimated Glomerular Filt Rate > 60; Glucose 92 mg/dL (75-110); Potassium 4.6 mmol/L (3.4-5.0); Sodium 132 mmol/L (137-145)
[2020-09-28 16:57] LABS: Troponin I < 0.012 ng/mL (0.000-0.034)
--- NOTE | 2020-09-28 18:10 | ED.GENADULT ---
HPI - General Adult General Chief complaint: Recheck/Abnormal Lab/Rx Stated complaint: high blood pressure Time Seen by Provider: 09/28/20 15:57 Source: patient, family and old records reviewed Mode of arrival: ambulatory Limitations: no limitations History of Present Illness HPI narrative: Patient is a 80-year-old male who presents to emergency department for evaluation of left-sided headache frontal and posterior nature at the beginning of August that had similar occurrence with some right-sided weakness and confusion issues have been brought in with MRI and stroke work-up that did not reveal any acute stroke patient notes that his physician Dr. Oseguera increased his hypertension medicine losartan from 50 to 75 mg daily patient notes that he has been following his blood pressures at home and they have continued to remain high and that he has had these daily headaches and this morning he had to a moment of confusion and difficulty remembering came in with his for this finding on arrival just notes 7 out of 10 left-sided headache denies other complaints Related Data Home Medications Medication Instructions Recorded Confirmed finasteride 5 mg PO DAILY 06/03/20 09/16/20 ICaps AREDS2 1 tablet PO BID 08/26/20 09/16/20 Allergies Allergy/AdvReac Type Severity Reaction Status Date / Time naproxen Allergy Unknown Unknown Verified 09/28/20 16:04 pneumococcal vaccine Allergy Unknown Rash Verified 09/28/20 16:04 Review of Systems Review of Systems: All systems reviewed & are unremarkable except as noted in HPI and below PMFSH Past Medical History Medical History (Updated 09/28/20 @ 18:16 by Gabriele Castorena PA-C) Arthritis BMI 31.0-31.9,adult Cerebrovascular small vessel disease Coughing Diarrhea Dizziness Enlarged prostate GERD (gastroesophageal reflux disease) Hypertension Light headedness Olecranon bursitis, left elbow Screen for colon cancer Stroke TIA 30 years ago Surgical History Surgical History History of hernia repair History of knee surgery History of prostate surgery UROLIFT procedure History of shoulder surgery Family History Family History Grandparent Cerebrovascular accident Mother Family history of diabetes mellitus in first degree relative Cerebrovascular accident Father Malignant neoplasm of prostate Social History Social History Social History: The patient is and lives with his . She is his durable power sugarcane planter for healthcare. The patient is a full code. The patient has 5 children. Patient stated that he quit smoking in 1978. 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 Smoking packs per day: 4 Smoking cigarettes per day: 80.0 Years smoked: 18 Smoking pack-years: 72.00 Smoking end date: 06/27/78 Alcohol intake: never Substance use: never Gender identity (if verbalized by the patient): Male Spiritual care concerns: No Exam Narrative: Exam Narrative: GENERAL: Well-appearing, well-nourished, and in no acute distress. HEAD: Normocephalic, atraumatic. EYES: PERRLA and EOMI. ENT: Nares clear, no rhinorrhea or epistaxis. Mucous membranes moist. NECK: Supple. No adenopathy or masses. No carotid bruits or JVD CHEST: Clear to auscultation. No respiratory distress. No wheezes rales or rhonchi HEART: Regular rate and rhythm. No murmur heard. Normal peripheral pulses. ABDOMEN: Soft, nontender, nondistended. EXTREMITIES: Normal range of motion. No edema. SKIN: Warm, dry, no rash. NEURO: No focal deficits. Alert and oriented x3. Cranial nerves II through XII grossly intact. normal speech. Motor and sensory intact and symmetrical in the upper and lower extremities. No facial asymmetry. Cerebellar intact. No pronator drift. Normal fing
[2020-09-28] MEDS: amLODIPine BESYLATE 5 MG TABLET PO (18:26)
[2020-09-28] MEDS: hydrALAZINE HCL 20 MG/ML VIAL 10 MG IV PUSH (18:35)
--- NOTE | 2020-09-28 19:33 | PC.NURSE ---
Pt resting on cart in its lowest position with at bedside. No complaints or concerns voiced. Pt and aware of poc. Advised to press call button for assistance.
--- NOTE | 2020-09-28 19:37 | PC.NURSE ---
Report called to receiving nurse, Lisa. Boucher to send pt to floor.
--- NOTE | 2020-09-28 20:05 | PM.IMHP ---
H&P: HPI History of Present Illness Date/Time: 09/28/20 20:05 Chief Complaint: Difficulty speaking and elevated blood pressure Narrative: This is a pleasant 80-year-old male with known history of chronic hypertension and previous CVA who is known to have an extensive past cigarette smoking history and presented to the hospital for evaluation of difficulty speaking as well as left-sided posterior and frontal headache. The patient was last known to be normal right before noon today and his noticed that he started having difficulty expressing himself. She said he was making incomprehensible sounds and this lasted for about 5 minutes in duration. They checked his blood pressure and found that it was severely elevated and decided to come to the hospital for evaluation. The patient reports having daily headaches that usually resolve around 10:00 a.m. they also have noticed that his blood pressure has been around 180 systolic when he first wakes up in the morning but after he takes his losartan a comes down to normal range by mid morning. The patient denies passing out, head trauma, seizure-like activity, blurry vision, double vision, facial droop, difficulty swallowing, numbness or tingling, focal weakness, incontinence, or other neurological symptoms. His remarks that his only other symptom today was feeling fatigued. On further review he also denies any recent fevers, chills, neck stiffness, chest pain, shortness of breath, sore throat, abdominal pain, nausea, vomiting, dysuria, hematuria, diarrhea, or rectal bleeding. The patient was just recently admitted to our hospital approximately 1 month ago and worked up for stroke which was negative at that time. He had a similar presentation at that time with expressive aphasia. He was told that he had a TIA. The patient reports that he was recently started on Plavix and is no longer taking aspirin. Brain CT was obtained in the emergency room this evening which demonstrated an age-indeterminant lacunar infarct of left thalamus. The patient's blood pressure in the emergency room has been very difficult to control and he has received various antihypertensive medications. ER provider has consulted our bakery demonstrator the patient will be admitted to the ICU. On my encounter with the patient tonight he has no other complaints and no recurrence of his expressive aphasia. The patient explained to me that he quit smoking approximately 40 years ago and for the majority of the 20 years that he did smoke, he was smoking 1 pack per day. He does report that his last 5 years of smoking was about 4 packs per day. Review of Systems Review of Systems: All systems reviewed & are unremarkable except as noted in HPI and below PMFSH Past Medical History Medical History Arthritis BMI 31.0-31.9,adult Cerebrovascular small vessel disease Coughing Diarrhea Dizziness Enlarged prostate GERD (gastroesophageal reflux disease) Hypertension Light headedness Olecranon bursitis, left elbow Screen for colon cancer Stroke TIA 30 years ago Surgical History Surgical History History of hernia repair History of knee surgery History of prostate surgery UROLIFT procedure History of shoulder surgery Family History Family History Grandparent Cerebrovascular accident Mother Family history of diabetes mellitus in first degree relative Cerebrovascular accident Father Malignant neoplasm of prostate Social History Social History Social History: The patient is and lives with his . She is his durable power territory sales consultant for healthcare. The patient is a full code. The patient has 5 children. Patient stated that he quit smoking in 1978. 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 he does not drink any alcohol ,use marijuana
--- NOTE | 2020-09-28 21:28 | ADMGEN ---
This patient, Thien Tineo Ysabel, was admitted to [facility] Room 316-01. Patient/family oriented to hospital policies and general routines including ID bracelet, bed and alarms, visiting hours, pain management, procedures, bathroom and other care routines, personal items, smoking policy, room service/diet, and visiting hours. Information on how to activate the Rapid Response Team has been discussed. Patient/Family are encouraged to report perceived risks to care and to ask questions if they do not understand what they are told or what they should do.
[2020-09-28 21:48] LABS: Glucose Point of Care 95 (65-105)
--- NOTE | 2020-09-28 22:11 | ADMGEN ---
This patient, Thien Tineo Ysabel, was admitted to Intensive Care Unit-2 on 09/28/20 at 2155. Patient/family oriented to hospital policies and general routines including ID bracelet, bed and alarms, visiting hours, pain management, procedures, bathroom and other care routines, personal items, smoking policy, room service/diet, and visiting hours. Information on how to activate the Rapid Response Team has been discussed. Patient/Family are encouraged to report perceived risks to care and to ask questions if they do not understand what they are told or what they should do.
--- NOTE | 2020-09-28 22:34 | PC.NURSE ---
2155 admission noted entered. Patient transferred from 316 to ICU 2.
[2020-09-28] MEDS: FAMOTIDINE 20 MG/2 ML VIAL IV PUSH (22:50)
[2020-09-29] VITALS (12 sets, daily range): BP systolic 143–168; BP diastolic 70–100; PULSE 54–67; RESP 12–20; TEMP 36.1–36.6; O2SAT 94–98
[2020-09-29] MEDS: ACETAMINOPHEN 325 MG TABLET 650 MG PO ×5 (04:19→20:33)
[2020-09-29 04:46] LABS: Basophils Absolute Auto 0.1 K/mm3 (0.0-0.1); Basophils Percent Auto 0.9 % (0.2-1.2); Eosinophils Absolute Auto 0.4 K/mm3 (0-0.3); Eosinophils Percent Auto 4.6 % (0-4.4); Hematocrit 43.8 % (42.0-52.0); Hemoglobin 14.9 g/dL (14.0-18.0); Immature Granulocyte Absolute 0.03 K/mm3 (0.00-0.031); Immature Granulocyte Percent A 0.4 % (0-0.5); Lymphocytes Absolute Auto 1.98 K/mm3 (0.9-3.2); Lymphocytes Percent Auto 24.4 % (18.3-44.2); Mean Corpuscular Hemoglobin 29.4 pg (26-34); Mean Corpuscular Volume 86.4 fl (80-100); Mean Platelet Volume 10.3 fl (7.4-10.4); Monocytes Absolute Auto 0.9 K/mm3 (0.1-0.6); Monocytes Percent Auto 11.6 % (2.6-8.5); Neutrophils Absolute Auto 4.7 K/mm3 (1.3-6.7); Neutrophils Percent Auto 58.1 % (45.5-73.1); Platelet Count Result 216 k/mm3 (150-375); Red Blood Count 5.07 M/mm3 (4.6-6.20); Red Cell Distribution Width 15.2 % (11.5-14.5); White Blood Count 8.1 K/mm3 (4.5-10.0)
[2020-09-29 04:59] LABS: Anion Gap 4 mmol/L (8-16); Blood Urea Nitrogen 21 mg/dL (9-20); Carbon Dioxide 26 mmol/L (22-30); Chloride 105 mmol/L (98-107); Estimated CRCL calculation 71 ml/min; Estimated Glomerular Filt Rate > 60; Glucose 100 mg/dL (75-110); Sodium 135 mmol/L (137-145)
[2020-09-29] MEDS: FINASTERIDE 5 MG TABLET PO (08:09)
[2020-09-29] MEDS: amLODIPine BESYLATE 5 MG TABLET PO (08:09)
[2020-09-29] MEDS: FAMOTIDINE 20 MG/2 ML VIAL IV PUSH ×2 (08:09→20:35)
[2020-09-29] MEDS: LOSARTAN POTASSIUM 25 MG TABLET 75 MG PO (08:09)
[2020-09-29] MEDS: CLOPIDOGREL BISULFATE 75 MG TABLET PO (08:09)
--- NOTE | 2020-09-29 09:10 | PC.NURSE ---
This patient, Thien Trippkaiden Moreno, was received from ICU 2 on 09/29/20 at 0910. Patient/family oriented to unit policies and routines
--- NOTE | 2020-09-29 09:12 | PC.NURSE ---
This patient, Thien Tineo Sr., was transferred to [[facility]] on 09/29/20 at 0912. Personal belongings sent with patient. Report given to [Alverto]. Appropriate documentation sent with patient.
--- NOTE | 2020-09-29 10:23 | WPDNEURCNPN ---
Assessment and Plan Assessment and plan (1) Acute CVA (cerebrovascular accident): Code(s): I63.9 - Cerebral infarction, unspecified Status: Acute Additional Plan Subcortical stroke on the basis of the small-vessel disease secondary to chronic hypertension previous MRI was consistent with small-vessel disease, CT scan now documented lacunar infarct of the left thalamus patient is receiving clopidogrel 75 mg daily which we will continue as such but he definitely needs to be more careful about the control of the blood pressure at present is taking losartan 75 mg 1 and half tablets of 50 mg daily while here the blood pressure can be monitored and instructed according Consult date: 09/29/20 Time Seen: 09:45 HPI: Thien Tineo Sr. is a 80 year old male admitted to the hospital for the complaints of difficulties and speech in addition to the ongoing history of 1. Hypertension 2. History of previous cerebrovascular accident 3. Extensive past cigarette smoking history. Patient was last known to be normal right before noon the day of admission when his noted a started having difficulties in expressing himself he was making incomprehensible sounds the whole episode lasted for about 5 minutes his blood pressure at that time was severely elevated so he decided to come to the hospital he also gave the history of having had daily headaches his blood pressure has been running around systolic of 180 is no history of any other history such as seizure vision double vision facial droop difficulty in swallowing or numbness of 1 side or other side but he did complain of generalized fatigue. patient had been in the hospital just recently about a month ago he was started on Plavix he is not taking aspirin brain scan in the emergency room revealed a lacunar infarct the left thalamus. He has ongoing history of arthritis, GERD, hypertension. evaluation up until now includes the unremarkable lab, except BUN of 21 hemoglobin A1c of 6.0, MRI on August 26, 2020 was compatible with moderate nonspecific white matter disease and pontine disease on the basis of the chronic small-vessel disease and repeat MRI is pending, CT scan did not reveal any bleed except the lacunar infarct of the left thalamus. Review of Systems Review of Systems: All systems reviewed & are unremarkable except as noted in HPI and below PMFSH Past Medical History Medical History Arthritis BMI 31.0-31.9,adult Cerebrovascular small vessel disease Coughing Diarrhea Dizziness Enlarged prostate GERD (gastroesophageal reflux disease) Hypertension Light headedness Olecranon bursitis, left elbow Screen for colon cancer Stroke TIA 30 years ago Surgical History Surgical History History of hernia repair History of knee surgery History of prostate surgery UROLIFT procedure History of shoulder surgery Family History Family History Grandparent Cerebrovascular accident Mother Family history of diabetes mellitus in first degree relative Cerebrovascular accident CAD (coronary artery disease) Hx of heart artery stent Father Malignant neoplasm of prostate Social History Social History Social History: The patient is and lives with his . She is his durable power health care attorney for healthcare. The patient is a full code. The patient has 5 children. Patient stated that he quit smoking in 1978. 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 Smoking packs per day: 4 Smoking cigarettes per day: 80.0 Years smoked: 28 Smoking pack-years: 112.00 Smoking status: Former smoker Smoking end date: 06/27/78 Alcohol intake: former Substance use: never Substance use type: does not use Gender identity (if verbalized by the patien
--- NOTE | 2020-09-29 16:28 | PM.IMPN ---
Progress Note: A&P Assessment and Plan (1) Expressive aphasia: Code(s): R47.01 - Aphasia Status: Acute Assessment and Plan: Now resolved. Rule out acute versus subacute stroke. Patient has expressive aphasia may also have been secondary to severely elevated hypertension. Patient is clearly not a candidate for tPA therapy given that his symptoms have resolved completely. Neuro checks, continue Plavix. Check hemoglobin A1c, recent lipid panel was obtained in June. Recent head and neck CTA with contrast was obtained last month as well as echocardiogram. Recent TSH was obtained in June. MRIs ordered for a.m.. Monitor blood pressure closely and continue Cardene drip. We will consult neurology. Appreciate neurology input. 09/29/20 16:28 72-year-old male with history CVA in the past, hypertension, he presented emergency department with a complaint difficulty expressing himself and main spoke was not make any sense, symptoms resolved after 5 minutes, his checked his blood pressure it was elevated patient was brought to emergency department for further evaluation, patient further states his blood pressure is high early in the morning and has a headache after he takes his his blood pressure medication his headache resolved by 10 am, currently patient denies any complaint his speech is appears normal is able to carry on the conversation, denies any upper and lower extremity weaker, to further evaluate patient had a CT scan of the head which did not show any acute injury similarly patient had MRI of the head and did not see any acute injury, patient is on Plavix and patient was seen by neurologist commended will continue, patient did participate in physical therapy and did well, patient was admitted with similar symptoms about a month ago and CT scan of the head and in a MRI of the brain were essentially, seems patient recurrent TIA with history CVA in the past will consult integrated pest management technician to rule proximal atrial fibrillation patient may need Holter monitor to further evaluate, will continue to monitor patient will have a PT OT work with the patient and will recommend outpatient physical therapy. Upon arrival patient blood pressure was extremely elevated 210/79 initially patient was admitted for hypertensive urgency and plan was to start the patient on Cardene IV however patient blood pressure trended and did not require any IV intervention his clinically stable for will continue to monitor (2) Hypertensive urgency: Code(s): I16.0 - Hypertensive urgency Status: Acute Assessment and Plan: Patient has been admitted to ICU for his hypertensive urgency. We will initiate Cardene IV with parameters for blood pressure control with a goal of 25% reduction of systolic blood pressure overnight. Resume losartan in a.m. (3) GERD (gastroesophageal reflux disease): Code(s): K21.9 - Gastro-esophageal reflux disease without esophagitis Status: Chronic Assessment and Plan: Continue PPI therapy that was started in the ER (4) BPH (benign prostatic hyperplasia): Code(s): N40.0 - Benign prostatic hyperplasia without lower urinary tract symptoms Status: Chronic Assessment and Plan: Continue finasteride Subjective Date/time seen: 09/29/20 16:28 72-year-old male with history CVA in the past, hypertension, he presented emergency department with a complaint difficulty expressing himself and main spoke was not make any sense, symptoms resolved after 5 minutes, his checked his blood pressure it was elevated patient was brought to emergency department for further evaluation, patient further states his blood pressure is high early in the morning and has a headache after he takes his his blood pressure medication his headache resolved by 10 am, currently patient denies any complaint his speech is appears normal is able to carry on the conversation, denies any upper and lower extremity weaker, to further evalua
[2020-09-30] VITALS (26 sets, daily range): BP systolic 139–208; BP diastolic 72–106; PULSE 46–81; RESP 14–28; TEMP 36.6–36.8; O2SAT 90–100
--- NOTE | 2020-09-30 | ECHO_ITS ---
Patient Info Name: Thien Tineo Age: 80 years : 1940 Gender: Male Ht: 70 in Wt: 226 lbs BSA: 2.28 m2 HR: 66 bpm BP: 173 / 90 mmHg Heart Rhythm: Sinus Rhythm Technical Quality: Fair Exam Date: 09/30/2020 2:18 PM Exam Location: [facility] Patient Status: Inpatient Admit Date: 09/28/2020 Staff Ordering Physician: David Tyson MD [employer] Feeder: Deborah Beverly RDCS Attending Provider: El Phelps MD Referring Physician: Marbella MADRID; Exam Type: CA echo limited w bubble study Study Info Limited two-dimensional transthoracic echocardiogram is performed with agitated saline. Contrast/Agitated Saline Contrast/Ag. Saline: Agitated Saline Amount: 30.00 ml Administered By: Bhumika Blood RN Existing IV Access: Yes IV Access Condition: patent with no signs of infiltration Summary 1. Left ventricular systolic function is normal, estimated at 60-65%. 2. Interatrial shunt at the atrial level noted with injection of agitated saline with and without Valsalva consistent with small atrial septal defect vs PFO. Recommendations * Recommend transesophageal echocardiogram. Left Ventricle Left ventricular systolic function is normal, estimated at 60-65%. Atrial Septum Interatrial shunt at the atrial level noted with injection of agitated saline with and without Valsalva consistent with small atrial septal defect vs PFO. Report Signatures
[2020-09-30 06:06] LABS: Hematocrit 43.2 % (42.0-52.0); Hemoglobin 14.9 g/dL (14.0-18.0); Mean Corpuscular HGB Conc 34.5 g/dl (32-36); Mean Corpuscular Hemoglobin 29.3 pg (26-34); Mean Corpuscular Volume 84.9 fl (80-100); Platelet Count Result 207 k/mm3 (150-375); Red Blood Count 5.09 M/mm3 (4.6-6.20); Red Cell Distribution Width 14.8 % (11.5-14.5); White Blood Count 8.1 K/mm3 (4.5-10.0)
[2020-09-30 06:19] LABS: Anion Gap 5 mmol/L (8-16); Blood Urea Nitrogen 17 mg/dL (9-20); Calcium 9.6 mg/dL (8.4-10.2); Carbon Dioxide 27 mmol/L (22-30); Chloride 103 mmol/L (98-107); Estimated CRCL calculation 65 ml/min; Estimated Glomerular Filt Rate > 60; Glucose 106 mg/dL (75-110); Potassium 4.1 mmol/L (3.4-5.0); Sodium 135 mmol/L (137-145)
[2020-09-30] MEDS: FINASTERIDE 5 MG TABLET PO (09:02)
[2020-09-30] MEDS: LOSARTAN POTASSIUM 25 MG TABLET 75 MG PO (09:02)
[2020-09-30] MEDS: FAMOTIDINE 20 MG/2 ML VIAL IV PUSH ×2 (09:02→20:00)
[2020-09-30] MEDS: amLODIPine BESYLATE 5 MG TABLET PO (09:02)
[2020-09-30] MEDS: CLOPIDOGREL BISULFATE 75 MG TABLET PO (09:02)
--- NOTE | 2020-09-30 09:02 | PM.CNCAR ---
Assessment and Plan Assessment and plan (1) Hypertensive urgency: Code(s): I16.0 - Hypertensive urgency Status: Acute Assessment and Plan: BP remains relatively uncontrolled. Appropriate BP control given recent stroke. Increase losartan to 100 mg daily. Discontinue p.r.n. hydralazine. May need to increase amlodipine to 10 mg daily and SBP remains >170mmHg. Avoid significant hypotension or overly aggressive BP lowering given CVA. Disposition per hospitalist service once BP control. Patient will stop by the office upon discharge for 30 day equipment monitor phototypesetting. (2) Acute CVA (cerebrovascular accident): Code(s): I63.9 - Cerebral infarction, unspecified Status: Acute Assessment and Plan: Clopidogrel per Neurology. Add statin therapy. Goal LDL less than 70. Discussed risk reduction strategy with the patient and rationale. Atorvastatin 40 mg daily. Check lipid panel. LDL 85 in June 2020. Obtain limited 2D echo for bubble study to assess for PFO/ASD. Clarification from Neurology with regards to discrepant radiologic interpretation of CT brain versus MRI in that CT brain suggested left thalamic lacunar infarction (not noted 08/26/20) and brain MRI consistent with small old cerebellar infarction but not noted on MRI of the brain 08/27/2020. (3) PSVT (paroxysmal supraventricular tachycardia): Code(s): I47.1 - Supraventricular tachycardia Status: Acute Assessment and Plan: Isolated, asymptomatic SVT possible atrial tachycardia. No atrial fibrillation or atrial flutter thus far on telemetry. Outpatient equipment monitor phototypesetting 30 day from our office upon discharge. Follow-up with me in the office in 1 month for further discussion. We discussed potential contribution to cardioembolic stroke with atrial fibrillation and/or atrial flutter although no prior diagnosis of documentation thus far there is no indication for systemic anticoagulation at present. If noted he should be on systemic anticoagulation. We discussed potential indications for implantable loop recorder in the future. Patient verbalized understanding and agreed with plan of care. Given intermittent bradycardia hold off on AV lgenroy blocking agents for now. History of Present Illness History of Present Illness Consult date/time: Date of service: 09/30/20 09:02 Cardiology consultation at the request of Dr. Butler for our opinion regarding CVA, uncontrolled hypertension, and possible atrial fibrillation Requesting physician: Jacque Butler MD Consult reason: Other (Stroke, hypertensive urgency) Reason For Visit: cva, hypertensive urgency Narrative: 80-year-old male with a past medical history significant for hypertension history tobacco abuse, reported history of remote TIA presented 09/28/2020 with left-sided and frontal headache and expressive aphasia. The symptoms persisted for least 5 minutes and gradually resolved. Headaches are persistent, however. At presentation, systolic blood pressure 210/79. It is noted he presented to the emergency department at the beginning of August with complaints of right-sided weakness, confusion and headache which MRI and CT the brain did not reveal acute or chronic stroke. Blood pressure was poorly controlled at that time as well. BP was noted to be elevated initially up to 180s at home with better control later in the day. CT brain revealed left thalamic lacunar infarction age indeterminate an MRI of the brain revealed a new finding interpreted as an old small right cerebellar infarction. Patient states his symptoms have resolved with exception of headache. He denies chest pain, palpitations, shortness of breath or focal weakness. He states his appetite is not very good but denies dysphagia. His aphasia has resolved. He is ambulating without difficulty. Patient reports remote transient and rare episodes of palpitations lasting less than 1 minute with no prior diagnosis with no symptoms for
[2020-09-30 09:26] LABS: Cholesterol 168 mg/dL (0-200); HDL Direct 50 mg/dL; Triglycerides 128 mg/dL (<150)
[2020-09-30 09:37] LABS: LDL Cholesterol Direct 78 mg/dL
--- NOTE | 2020-09-30 10:43 | WPDNEUROLOGY ---
Neurology EEG Report General Information Date of Study: 09/29/20 TEST eeg DIAGNOSIS new onset seizures CONDITION OF RECORDING unresponsive EEG NUMBER [id number] CLINICAL HISTORY comatose EEG DESCRIPTION whole record consists of low to medium voltage 5 to 6 hertz per second theta activity admixed with 2 to 3 hertz per second delta activity. Bilateral symmetrical spindles are seen throughout during sleep, hyperventilation not done. Photic stimulation not done. Non paroxysmal. Nonfocal. Nonlateralizing. IMPRESSION Abnormal record due to the presence of bihemispheric theta and delta activity and absence of the normal background rhythm .these abnormalities could be consistent with the diagnosis of organic or metabolic encephalopathy or postictal state. clinical correlation recommended. there is no evidence of active seizure like activity.
[2020-09-30] MEDS: ATORVASTATIN 40 MG TABLET PO (10:44)
[2020-09-30] MEDS: LOSARTAN POTASSIUM 25 MG TABLET PO (10:44)
[2020-09-30] MEDS: ACETAMINOPHEN 325 MG TABLET 650 MG PO ×2 (15:03→20:00)
--- NOTE | 2020-09-30 15:03 | PM.IMPN ---
Progress Note: A&P Assessment and Plan (1) Expressive aphasia: Code(s): R47.01 - Aphasia Status: Acute Assessment and Plan: Now resolved. Rule out acute versus subacute stroke. Patient has expressive aphasia may also have been secondary to severely elevated hypertension. Patient is clearly not a candidate for tPA therapy given that his symptoms have resolved completely. Neuro checks, continue Plavix. Check hemoglobin A1c, recent lipid panel was obtained in June. Recent head and neck CTA with contrast was obtained last month as well as echocardiogram. Recent TSH was obtained in June. MRIs ordered for a.m.. Monitor blood pressure closely and continue Cardene drip. We will consult neurology. Appreciate neurology input. 09/30/20 15:03 09/29 72-year-old male with history CVA in the past, hypertension, he presented emergency department with a complaint difficulty expressing himself and main spoke was not make any sense, symptoms resolved after 5 minutes, his checked his blood pressure it was elevated patient was brought to emergency department for further evaluation, patient further states his blood pressure is high early in the morning and has a headache after he takes his his blood pressure medication his headache resolved by 10 am, currently patient denies any complaint his speech is appears normal is able to carry on the conversation, denies any upper and lower extremity weaker, to further evaluate patient had a CT scan of the head which did not show any acute injury similarly patient had MRI of the head and did not see any acute injury, patient is on Plavix and patient was seen by neurologist commended will continue, patient did participate in physical therapy and did well, patient was admitted with similar symptoms about a month ago and CT scan of the head and in a MRI of the brain were essentially, seems patient recurrent TIA with history CVA in the past will consult director education to rule proximal atrial fibrillation patient may need Holter monitor to further evaluate, will continue to monitor patient will have a PT OT work with the patient and will recommend outpatient physical therapy. Upon arrival patient blood pressure was extremely elevated 210/79 initially patient was admitted for hypertensive urgency and plan was to start the patient on Cardene IV however patient blood pressure trended and did not require any IV intervention his clinically stable for will continue to monitor 09/30 today patient remains clinically stable and work with physical therapy, patient was seen by Cardiology recommended patient needs better control of his blood pressure increased losartan to 100 mg q.day from 25 mg q.day, recommended to continue monitor BP and if needed amlodipine can be increased to 10 mg from 5 mg, ordered cardiac echo with bubble study pending, will continue to monitor the and adjusted per patient medical as needed and follow-up on cardiac echo, continue per physical therapy and further recommendation to follow (2) Hypertensive urgency: Code(s): I16.0 - Hypertensive urgency Status: Acute Assessment and Plan: Patient has been admitted to ICU for his hypertensive urgency. We will initiate Cardene IV with parameters for blood pressure control with a goal of 25% reduction of systolic blood pressure overnight. Resume losartan in a.m. (3) GERD (gastroesophageal reflux disease): Code(s): K21.9 - Gastro-esophageal reflux disease without esophagitis Status: Chronic Assessment and Plan: Continue PPI therapy that was started in the ER (4) BPH (benign prostatic hyperplasia): Code(s): N40.0 - Benign prostatic hyperplasia without lower urinary tract symptoms Status: Chronic Assessment and Plan: Continue finasteride Subjective Date/time seen: 09/30/20 15:03 09/29 72-year-old male with history CVA in the past, hypertension, he presented emergency department with a complaint difficul
[2020-09-30 16:05] LABS: Glucose Point of Care 107 (65-105)
[2020-09-30] MEDS: hydrALAZINE HCL 20 MG/ML VIAL 10 MG IV PUSH (16:05)
--- NOTE | 2020-09-30 16:32 | P.PNCROSS_ITS ---
Event Note Event Note Event Note: rapid response called with new symptom of speech difficulty similar to the epsidoe he had when he came in. he had garbled speech. HIs BP noted to be elevated at 210/90 and iv hydralazine 10 mg was administered. he was on nicardipine gtt in the ICU recenlty. will get ct head stat woc. moving his extremities bilaterally. alert and awake, telemetry with normal sinus rhythm. will start him on nicardipine gtt and move him to the ICU for further care. discussed with Telemarketer Supervisor and also Dr. Matt.
[2020-09-30] MEDS: ONDANSETRON INJ 4 MG/2 ML VIAL IV PUSH (17:18)
--- NOTE | 2020-09-30 18:28 | PC.NURSE ---
This patient, Thien Tineo Sr., was transferred to [ICU ] on 09/30/20 at 1815. Personal belongings sent with patient. Report given to [ Lissett]. Appropriate documentation sent with patient.
--- NOTE | 2020-09-30 18:30 | PC.NURSE ---
Patients came out to nursing station at 1600 stating patient was not acting right . Vital signs were obtained and documented. Patient was found to have aphasia, and only alert to person. Patient unable to get his words out. Patient stated it was September when asked the date but unable to say anything else. MD notified of change in status as well as charge nurse and warehouse manager. Hydralazine 10mg IV was given for bp of 200/95 manual. Patient was taken by bed to CT. Patient began vomiting after being transfered to CT machine. MD ordered transfer to ICU. Patient received a dose of zofran IV. Patient still aphasic during transfrer to ICU.
[2020-09-30] MEDS: KETOROLAC 30 MG/ML VIAL (*BKC) IV PUSH (18:54)
[2020-09-30] MEDS: niCARdipine 20 MG/200 ML 20 MG/200 ML BAG 50 MG IV CONT (19:57)
[2020-09-30] MEDS: niCARdipine 20 MG/200 ML 20 MG/200 ML BAG 40 MG IV CONT (23:21)
[2020-10-01] VITALS (22 sets, daily range): BP systolic 120–173; BP diastolic 61–100; PULSE 56–82; RESP 14–24; TEMP 36.4–36.9; O2SAT 91–96
[2020-10-01] MEDS: ACETAMINOPHEN 325 MG TABLET 650 MG PO ×2 (01:46→08:25)
[2020-10-01 03:31] LABS: Hematocrit 45.7 % (42.0-52.0); Mean Corpuscular Hemoglobin 29.8 pg (26-34); Mean Corpuscular Volume 85.1 fl (80-100); Mean Platelet Volume 9.9 fl (7.4-10.4); Platelet Count Result 218 k/mm3 (150-375); Red Blood Count 5.37 M/mm3 (4.6-6.20); Red Cell Distribution Width 14.7 % (11.5-14.5)
[2020-10-01] MEDS: traMADol HCL (*CRX) 50 MG TABLET PO (03:38)
[2020-10-01 03:44] LABS: Anion Gap 4 mmol/L (8-16); Blood Urea Nitrogen 18 mg/dL (9-20); Calcium 9.3 mg/dL (8.4-10.2); Carbon Dioxide 28 mmol/L (22-30); Chloride 98 mmol/L (98-107); Estimated CRCL calculation 80 ml/min; Estimated Glomerular Filt Rate > 60; Glucose 142 mg/dL (75-110); Potassium 4.3 mmol/L (3.4-5.0); Sodium 130 mmol/L (137-145)
[2020-10-01] MEDS: amLODIPine BESYLATE 5 MG TABLET PO ×2 (08:21→09:06)
[2020-10-01] MEDS: ATORVASTATIN 40 MG TABLET PO (08:21)
[2020-10-01] MEDS: FINASTERIDE 5 MG TABLET PO (08:21)
[2020-10-01] MEDS: CLOPIDOGREL BISULFATE 75 MG TABLET PO (08:21)
[2020-10-01] MEDS: LOSARTAN POTASSIUM 100 MG TABLET PO (08:21)
[2020-10-01] MEDS: FAMOTIDINE 20 MG/2 ML VIAL IV PUSH ×2 (08:21→20:16)
--- NOTE | 2020-10-01 08:59 | WPDCNINT ---
Assessment and Plan Assessment and plan (1) Hypertensive urgency: Code(s): I16.0 - Hypertensive urgency Status: Acute Assessment and Plan: Patient was started on nicardipine infusion overnight and his blood pressures improved and Cardiac been has been weaned off Continue losartan and Norvasc Increase Norvasc to 10 mg Will discuss with cardiology regarding adding a 3rd medication may be beta-rafa P.r.n. hydralazine and labetalol (2) Acute CVA (cerebrovascular accident): Code(s): I63.9 - Cerebral infarction, unspecified Status: Acute Assessment and Plan: Continue aspirin and statin No significant carotid disease Evaluation for PFO. May need systemic anticoagulation PT/OT (3) PFO (patent foramen ovale): Code(s): Q21.1 - Atrial septal defect Status: Acute Assessment and Plan: Echocardiogram showed 1. Left ventricular systolic function is normal, estimated at 60-65%. 2. Interatrial shunt at the atrial level noted with injection of agitated saline with and without Valsalva consistent with small atrial septal defect vs PFO. Discussed with cardiology regarding SENDY. Although patient may have PFO but it may not be responsible for the CVA as patient does have other risk factors including uncontrolled hypertension. Will discuss with cardiology (4) Expressive aphasia: Code(s): R47.01 - Aphasia Status: Acute Assessment and Plan: Symptoms appear to have improved as patient had normal speech this morning during interview. Monitor (5) Headache: Code(s): R51.9 - Headache, unspecified Status: Acute Assessment and Plan: Could be secondary to hypertension versus migraines Improved at this time Continue blood pressure control P.r.n. Tylenol or ibuprofen Additional Plan DVT prophylaxis -start Lovenox Stress ulcer prophylaxis -patient is on Pepcid Nutrition -regular diet Code Status - Full Code which I confirmed with patient Physical therapy occupational therapy, incentive spirometry and up in chair Transfer out of ICU today [facility] Consult Note Consult date: 10/01/20 Time Seen: 09:00 HPI: Thien Maria Ines Tineo Sr. is a 80 year old male who was admitted on09/28 with chief complaint of difficulty in finding words and elevated blood pressure. He he stated that he was admitted for TIA a month ago with similar symptoms of having difficulty finding words. In ER CT scan showed age-indeterminant lacunar infarct of left thalamus. Cardiology and Neurology was consulted. His symptoms resolved pretty quickly. Collagen diagnosed him with acute CVA and patient was started on Plavix. And was started on amlodipine and l losartan for blood pressure. Yesterday patient was undergoing echocardiogram where post bolus study patient has had elevation in blood pressure. During that time patient again had difficulty with finding words and was confused. Patient was noticed to have a systolic blood pressure in 200s. Blood pressure did not significantly improve with IV push medication and patient was transferred to ICU on IV nicardipine infusion to control his blood pressure. Overnight his symptoms resolved and nicardipine was weaned off. This morning patient told me that his headaches have improved since yesterday. Yesterday his headache was 5-6/10 which is mostly located in anterior on left side and posterior. He told me that he was having difficulty finding words but at this time he feels at his baseline. Denies any weakness numbness tingling in any particular extremities. He did tell me that his vision was blurred but is now at baseline. He does have vision difficulties even at baseline and requires glasses and often has blurred vision. Patient told me that he has had history of migraine headaches for which he has not and taken anything consistently except Excedrin migraine pills. The headaches are associated with photophobia but no nausea vomiting. All other systems
--- NOTE | 2020-10-01 09:57 | PM.PNCARD ---
Progress Note: A&P Additional Plan 80-year-old man with problematic hypertension admitted with neurological symptoms and very elevated blood pressure. Pressure is better he is back on his regimen of amlodipine and losartan with an increased dose of his amlodipine. Will add a diuretic today is systolic blood pressures in the 170s. His heart rate is in the 50s and 60s so I doubt a beta-rafa would be very helpful or well tolerated. I will try to arrange for transesophageal echo to be done tomorrow probably with assistance of anesthesia for further evaluation of his patent foramen ovale. Gus Angel MD [facility] Subjective Date/time seen: Date of service: 10/01/20 09:57 Interval history: 80-year-old man with: Hypertension with symptoms of neurological concern with expressive aphasia and has imaging evidence of probably a couple of previous CVAs. He was initially felt to be having a hypertensive urgency however echocardiogram done yesterday appears to show evidence of a PFO. He certainly could also be having cardioembolic events. SENDY was recommended by my partner who read the echocardiogram. Spoke to the patient at length today about that procedure and the indication to consider closing a PFO. Patient's only concern is that he be sedated heavily enough since he has had difficulty with oral procedures in the past. Exam Const: General: comfortable and no acute distress Other: Pleasant elderly man comfortable cooperative in no distress of any sort HENMT: Mouth: Yes moist mucous membranes Eyes: Sclera: sclerae normal Pupils: Equal, round and reactive pupils present Neck: Neck: supple and no JVD Other: Carotid pulses are normal bilaterally and are free of bruits Resp: Effort & Inspection: normal respiratory effort Auscultation: clear to auscultation bilaterally Cardio: Rate: regular rate Rhythm: regular rhythm Other: No murmur no gallop GI: GI Palp: Yes Soft to palpation Auscultation: normal bowel sounds Skin: General skin exam: normal color Neuro: Cognition (Neuro): normal cognition Extrem: General: normal to inspection Objective Data Vital Signs Vital Signs: Vital Signs - 24 hr 09/30/20 12:00 09/30/20 14:00 09/30/20 15:55 Temperature 36.8 C Pulse Rate 59 L 66 Respiratory Rate 18 Blood Pressure 139/75 194/91 H Pulse Oximetry 98 09/30/20 16:00 09/30/20 16:05 09/30/20 16:12 Temperature Pulse Rate 62 Respiratory Rate Blood Pressure 200/95 H 208/98 H Pulse Oximetry 09/30/20 16:15 09/30/20 17:17 09/30/20 19:00 Temperature Pulse Rate 65 Respiratory Rate 17 Blood Pressure 184/77 H 156/72 H 206/106 H Pulse Oximetry 95 09/30/20 19:30 09/30/20 19:43 09/30/20 19:57 Temperature Pulse Rate 66 65 69 Respiratory Rate 18 22 H Blood Pressure 195/98 H 191/104 H Pulse Oximetry 95 100 09/30/20 20:00 09/30/20 20:30 09/30/20 21:00 Temperature Pulse Rate 64 76 80 Respiratory Rate 21 H 28 H 27 H Blood Pressure 173/86 H 173/80 H 171/78 H Pulse Oximetry 91 91 90 09/30/20 21:02 09/30/20 22:00 09/30/20 22:08 Temperature Pulse Rate 76 78 78 Respiratory Rate 24 H 17 Blood Pressure 166/84 H Pulse Oximetry 95 95 09/30/20 23:00 09/30/20 23:21 09/30/20 23:30 Temperature Pulse Rate 70 71 72 Respiratory Rate 16 Blood Pressure 158/81 H 158/81 H 147/79 H Pulse Oximetry 93 95 09/30/20 23:37 10/01/20 00:00 10/01/20 00:30 Temperature 36.6 C Pulse Rate 72 74 69 Respiratory Rate 14 17 22 H Blood Pressure 147/81 H 129/75 Pulse Oximetry 92 95 93 10/01/20 01:01 10/01/20 02:00 10/01/20 02:31 Temperature Pulse Rate 71 69 66 Respiratory Rate 18 17 Blood Pressure 133/72 167/77 H 120/61 Pulse Oximetry 93 96 94 10/01/20 03:00 10/01/20 03:20 10/01/20 04:00 Temperature 36.9 C Pulse Rate 70 71 63 Respiratory Rate 19 19 18 Blood Pressure 139/68 153/82 H Pulse Oximetry 95 95 94 10/01/20 05:00 10/01/20 08:00 10/01/20 09:
--- NOTE | 2020-10-01 10:05 | WPDNEUROPN ---
Progress Note: A&P Assessment and Plan (1) PFO (patent foramen ovale): Code(s): Q21.1 - Atrial septal defect Status: Acute (2) Acute CVA (cerebrovascular accident): Code(s): I63.9 - Cerebral infarction, unspecified Status: Acute Additional Plan subcortical strokes while receiving the Plavix 75 mg daily in addition to the uncontrolled hypertension and also the recent finding of the PFO, final cardiological recommendations are awaited while the blood pressure is being controlled he will continue on Plavix at that once the blood pressure is controlled he can add aspirin 81 mg daily Review of Systems Review of Systems: All systems reviewed & are unremarkable except as noted in HPI and below Exam Const: General: cooperative, comfortable, no acute distress, alert and awake Nutritional Appearance: average body habitus Limitations: no limitations HENMT: Head: normocephalic Ears: hearing grossly normal bilaterally General nose exam: Normal external nose present Face and sinus: normal facial exam Mouth: Yes Normal oral and palatal mucosa present Eyes: General: appearance normal, both eyes and all related structures Resp: Auscultation: clear to auscultation bilaterally Cardio: Rate: regular rate Rhythm: regular rhythm Neuro: General: oriented to person and patient oriented x3 Cranial nerves: Yes CN's II-XII intact bilaterally Cognition (Neuro): normal cognition Motor exam (neuro): 5/5 motor strength present throughout Sensory Exam: normal sensation Deep tendon reflexes (DTR's): Right triceps reflex intensity grade: 1+, Left triceps reflex intensity grade: 1+, Rt Biceps (C5, C6): 1+, Left biceps reflex intensity grade: 1+, Right brachioradialis reflex intensity grade: 1+, Left brachioradialis reflex intensity grade: 1+, Right patellar reflex intensity grade: 1+, Left patellar reflex intensity grade: 1+, Right ankle reflex intensity grade: 1+ and Left ankle reflex intensity grade: 1+ Coordination: [id number] test normal Psych: Appearance: grossly normal Objective Data Vital Signs Vital Signs: Vital Signs - 24 hr 09/30/20 12:00 09/30/20 14:00 09/30/20 15:55 Temperature 36.8 C Pulse Rate 59 L 66 Respiratory Rate 18 Blood Pressure 139/75 194/91 H Pulse Oximetry 98 09/30/20 16:00 09/30/20 16:05 09/30/20 16:12 Temperature Pulse Rate 62 Respiratory Rate Blood Pressure 200/95 H 208/98 H Pulse Oximetry 09/30/20 16:15 09/30/20 17:17 09/30/20 19:00 Temperature Pulse Rate 65 Respiratory Rate 17 Blood Pressure 184/77 H 156/72 H 206/106 H Pulse Oximetry 95 09/30/20 19:30 09/30/20 19:43 09/30/20 19:57 Temperature Pulse Rate 66 65 69 Respiratory Rate 18 22 H Blood Pressure 195/98 H 191/104 H Pulse Oximetry 95 100 09/30/20 20:00 09/30/20 20:30 09/30/20 21:00 Temperature Pulse Rate 64 76 80 Respiratory Rate 21 H 28 H 27 H Blood Pressure 173/86 H 173/80 H 171/78 H Pulse Oximetry 91 91 90 09/30/20 21:02 09/30/20 22:00 09/30/20 22:08 Temperature Pulse Rate 76 78 78 Respiratory Rate 24 H 17 Blood Pressure 166/84 H Pulse Oximetry 95 95 09/30/20 23:00 09/30/20 23:21 09/30/20 23:30 Temperature Pulse Rate 70 71 72 Respiratory Rate 16 Blood Pressure 158/81 H 158/81 H 147/79 H Pulse Oximetry 93 95 09/30/20 23:37 10/01/20 00:00 10/01/20 00:30 Temperature 36.6 C Pulse Rate 72 74 69 Respiratory Rate 14 17 22 H Blood Pressure 147/81 H 129/75 Pulse Oximetry 92 95 93 10/01/20 01:01 10/01/20 02:00 10/01/20 02:31 Temperature Pulse Rate 71 69 66 Respiratory Rate 18 17 Blood Pressure 133/72 167/77 H 120/61 Pulse Oximetry 93 96 94 10/01/20 03:00 10/01/20 03:20 10/01/20 04:00 Temperature 36.9 C Pulse Rate 70 71 63 Respiratory Rate 19 19 18 Blood Pressure 139/68 153/82 H Pulse Oximetry 95 95 94 10/01/20 05:00 10/01/20 08:00 10/01/20 09:41 Temperature 36.4 C Pulse Rate 60 60 60 Respiratory Rate
[2020-10-01] MEDS: hydroCHLOROthiazide 12.5 MG CAPSULE PO (10:39)
--- NOTE | 2020-10-01 19:31 | PM.IMPN ---
Progress Note: A&P Assessment and Plan (1) Expressive aphasia: Code(s): R47.01 - Aphasia Status: Acute Assessment and Plan: Now resolved. Rule out acute versus subacute stroke. Patient has expressive aphasia may also have been secondary to severely elevated hypertension. Patient is clearly not a candidate for tPA therapy given that his symptoms have resolved completely. Neuro checks, continue Plavix. Check hemoglobin A1c, recent lipid panel was obtained in June. Recent head and neck CTA with contrast was obtained last month as well as echocardiogram. Recent TSH was obtained in June. MRIs ordered for a.m.. Monitor blood pressure closely and continue Cardene drip. We will consult neurology. Appreciate neurology input. 09/30/20 15:03 09/29 72-year-old male with history CVA in the past, hypertension, he presented emergency department with a complaint difficulty expressing himself and main spoke was not make any sense, symptoms resolved after 5 minutes, his checked his blood pressure it was elevated patient was brought to emergency department for further evaluation, patient further states his blood pressure is high early in the morning and has a headache after he takes his his blood pressure medication his headache resolved by 10 am, currently patient denies any complaint his speech is appears normal is able to carry on the conversation, denies any upper and lower extremity weaker, to further evaluate patient had a CT scan of the head which did not show any acute injury similarly patient had MRI of the head and did not see any acute injury, patient is on Plavix and patient was seen by neurologist commended will continue, patient did participate in physical therapy and did well, patient was admitted with similar symptoms about a month ago and CT scan of the head and in a MRI of the brain were essentially, seems patient recurrent TIA with history CVA in the past will consult die finisher to rule proximal atrial fibrillation patient may need Holter monitor to further evaluate, will continue to monitor patient will have a PT OT work with the patient and will recommend outpatient physical therapy. Upon arrival patient blood pressure was extremely elevated 210/79 initially patient was admitted for hypertensive urgency and plan was to start the patient on Cardene IV however patient blood pressure trended and did not require any IV intervention his clinically stable for will continue to monitor 09/30 today patient remains clinically stable and work with physical therapy, patient was seen by Cardiology recommended patient needs better control of his blood pressure increased losartan to 100 mg q.day from 25 mg q.day, recommended to continue monitor BP and if needed amlodipine can be increased to 10 mg from 5 mg, ordered cardiac echo with bubble study pending, will continue to monitor the and adjusted per patient medical as needed and follow-up on cardiac echo, continue per physical therapy and further recommendation to follow 10/01/20 Patient remains clinically stable Will undergo SENDY tomorrow Blood pressure better controlled Continue clopidogrel Continue PT/OT Discharge planning (2) Hypertensive urgency: Code(s): I16.0 - Hypertensive urgency Status: Acute Assessment and Plan: Patient has been admitted to ICU for his hypertensive urgency Cardene IV with parameters was initiated and his losartan was subsequently resumed. (3) GERD (gastroesophageal reflux disease): Code(s): K21.9 - Gastro-esophageal reflux disease without esophagitis Status: Chronic Assessment and Plan: Continue PPI therapy (4) BPH (benign prostatic hyperplasia): Code(s): N40.0 - Benign prostatic hyperplasia without lower urinary tract symptoms Status: Chronic Assessment and Plan: Continue finasteride Subjective Date/time seen: 10/01/20 19:31 Patient cooperative with the interview this evening he has no comp
[2020-10-02] VITALS (22 sets, daily range): BP systolic 112–191; BP diastolic 56–99; PULSE 54–88; RESP 15–21; TEMP 36.4–36.6; O2SAT 92–98
[2020-10-02 04:50] LABS: Hematocrit 47.2 % (42.0-52.0); Hemoglobin 16.2 g/dL (14.0-18.0); Mean Corpuscular HGB Conc 34.3 g/dl (32-36); Mean Corpuscular Hemoglobin 29.3 pg (26-34); Mean Corpuscular Volume 85.4 fl (80-100); Mean Platelet Volume 9.8 fl (7.4-10.4); Platelet Count Result 212 k/mm3 (150-375); Red Blood Count 5.53 M/mm3 (4.6-6.20); Red Cell Distribution Width 14.6 % (11.5-14.5); White Blood Count 10.3 K/mm3 (4.5-10.0)
[2020-10-02 05:07] LABS: Anion Gap 6 mmol/L (8-16); Blood Urea Nitrogen 22 mg/dL (9-20); Calcium 9.9 mg/dL (8.4-10.2); Carbon Dioxide 28 mmol/L (22-30); Chloride 97 mmol/L (98-107); Estimated CRCL calculation 65 ml/min; Estimated Glomerular Filt Rate > 60; Glucose 104 mg/dL (75-110); Magnesium 1.9 mg/dL (1.6-2.3); Potassium 4.3 mmol/L (3.4-5.0); Sodium 131 mmol/L (137-145)
[2020-10-02] MEDS: ENOXAPARIN 40 MG/0.4 ML SYRINGE SUB-Q (08:57)
[2020-10-02] MEDS: FAMOTIDINE 20 MG/2 ML VIAL IV PUSH ×2 (08:58→20:48)
[2020-10-02] MEDS: LOSARTAN POTASSIUM 100 MG TABLET PO (08:58)
[2020-10-02] MEDS: CLOPIDOGREL BISULFATE 75 MG TABLET PO (08:58)
[2020-10-02] MEDS: ATORVASTATIN 40 MG TABLET PO (08:58)
[2020-10-02] MEDS: amLODIPine BESYLATE 5 MG TABLET 10 MG PO (08:58)
[2020-10-02] MEDS: hydroCHLOROthiazide 12.5 MG CAPSULE PO (08:58)
[2020-10-02] MEDS: FINASTERIDE 5 MG TABLET PO (08:58)
--- NOTE | 2020-10-02 10:11 | WPDMODSED ---
Moderate Sedation Note-Pt Data Patient Data Diagnosis: CVA, PFO Present Complaint: none Procedure to be performed/Plan: Transesophageal echocardiogram Allergies Allergy/AdvReac Type Severity Reaction Status Date / Time naproxen Allergy Unknown Unknown Verified 09/28/20 16:04 pneumococcal vaccine Allergy Unknown Rash Verified 09/28/20 16:04 Home Medications Medication Instructions Recorded Confirmed Type finasteride 5 mg PO DAILY 06/03/20 09/28/20 History ICaps AREDS2 1 tablet PO BID 08/26/20 09/28/20 History clopidogrel 75 mg tablet 75 mg PO DAILY #90 tablet 09/11/20 09/28/20 Rx losartan 50 mg tablet 75 mg PO DAILY #30 tablet 09/23/20 09/28/20 Rx Current Medications: Active Medications Acetaminophen (Acetaminophen 325 Mg Tablet) 650 mg PO Q4H PRN PRN Reason: Mild Pain (1-3) or Fever Last Admin: 10/01/20 08:25 Dose: 650 mg Documented by: Amlodipine Besylate (Amlodipine Besylate 5 Mg Tablet) 10 mg PO QAM [facility] Last Admin: 10/02/20 08:58 Dose: 10 mg Documented by: Atorvastatin Calcium (Atorvastatin 40 Mg Tablet) 40 mg PO DAILY [facility] Last Admin: 10/02/20 08:58 Dose: 40 mg Documented by: Clopidogrel Bisulfate (Clopidogrel Bisulfate 75 Mg Tablet) 75 mg PO DAILY [facility] Last Admin: 10/02/20 08:58 Dose: 75 mg Documented by: Enoxaparin Sodium (Enoxaparin 40 Mg/0.4 Ml Syringe) 40 mg SUB-Q DAILY [facility] Last Admin: 10/02/20 08:57 Dose: 40 mg Documented by: Famotidine (Famotidine 20 Mg/2 Ml Vial) 20 mg IV PUSH Q12HR [facility] Last Admin: 10/02/20 08:58 Dose: 20 mg Documented by: Finasteride (Finasteride 5 Mg Tablet) 5 mg PO DAILY [facility] Last Admin: 10/02/20 08:58 Dose: 5 mg Documented by: Hydralazine HCl (Hydralazine Hcl 20 Mg/Ml Vial) 20 mg IV PUSH Q4H PRN PRN Reason: SBP > 160 Hydrochlorothiazide (Hydrochlorothiazide 12.5 Mg Capsule) 12.5 mg PO QAM [facility] Last Admin: 10/02/20 08:58 Dose: 12.5 mg Documented by: Nicardipine/Sodium Chloride (Cardene 20 Mg/200 Ml Ns) 20 mg in 200 mls @ 0 mls/hr IV CONT .Q0M [facility]; Protocol Last Admin: 10/01/20 07:29 Dose: Not Given Documented by: Labetalol HCl (Labetalol Hcl Inj 100 Mg/20 Ml Vial) 20 mg IV PUSH Q4H PRN PRN Reason: SBP > 160 Losartan Potassium (Losartan Potassium 100 Mg Tablet) 100 mg PO DAILY [facility] Last Admin: 10/02/20 08:58 Dose: 100 mg Documented by: Ondansetron HCl (Ondansetron Inj 4 Mg/2 Ml Vial) 4 mg IV PUSH Q4H PRN PRN Reason: Nausea Last Admin: 09/30/20 17:18 Dose: 4 mg Documented by: Sedation/Anesthesia: No previous sedation/anesthesia problems (including family history). REPLACED BY [facility] Past Medical History Medical History Arthritis BMI 31.0-31.9,adult Cerebrovascular small vessel disease Coughing Diarrhea Dizziness Enlarged prostate GERD (gastroesophageal reflux disease) Hypertension Light headedness Olecranon bursitis, left elbow Screen for colon cancer Stroke TIA 30 years ago Surgical History Surgical History History of hernia repair History of knee surgery History of prostate surgery UROLIFT procedure History of shoulder surgery Family History Family History Grandparent Cerebrovascular accident Mother Family history of diabetes mellitus in first degree relative Cerebrovascular accident CAD (coronary artery disease) Hx of heart artery stent Father Malignant neoplasm of prostate Social History Social History Social History: The patient is and lives with his . She is his durable power managing attorney for healthcare. The patient is a full code. The patient has 5 children. Patient stated that he quit smoking in 1978. 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 Smoking packs per day: 4 Smoking cigarettes per day: 80.0 Years smoked: 28 S
--- NOTE | 2020-10-02 10:12 | WPDTEECHO ---
SENDY TransEsophageal Echocardiogram Date of procedure: 10/02/20 Procedure Type: Transesophageal echocardiogram Diagnosis: CVA, PFO Indications: CVA, PFO Image Quality: excellent Findings: Brief history present illness: Patient is a pleasant 80-year-old male with a history of hypertension, reported remote TIA admitted with hypertensive urgency 09/28/2020 and complaints of left-sided and frontal headache and expressive aphasia. Bubble study revealed PFO versus small ASD referred for transesophageal echocardiogram for further evaluation. Patient was clinically improved but blood pressure became control with worsening neurologic symptoms including expressive aphasia resolved with blood pressure control. Patient at this time is feeling well, hemodynamically stable and with no residual deficits. He denies dysphagia and has been taking oral medications without difficulty. Procedure in detail: After verbal and written informed consent was obtained the patient risks, benefits, and alternatives explained in detail the patient agreed to proceed with the plan of care as outlined above. The patient was evaluated at bedside in the ICU. The posterior oropharynx, neck, and jaw angle all within normal limits on examination. Lungs were clear to auscultation. See pre-sedation note for further details The patient was then placed in the appropriate 30 to 45 degree angle supine position at a slight left lateral decubitus position. Patient was monitored throughout the study with telemetry, oxygen saturation, end-tidal CO2 monitoring, blood pressure, heart rate, and respirations. The posterior hypopharynx was then locally anesthetized using repeated administration of Hurricaine spray as well as gargled viscous lidocaine. After local anesthetic of the posterior hypopharynx was achieved and the oral bite block placed, moderate sedation was administered. After confirmation of adequate moderate sedation, the transesophageal echocardiogram probe was advanced through the oral bite block into the posterior hypopharynx and into the esophagus easily and without complication. Multiple, multiplanar echocardiographic images were obtained in multiple standard re- projections. Pulsed wave, continuous-wave, and color-flow Doppler were utilized in conjunction with this study. At the conclusion of the study, the transesophageal echocardiogram probe was removed easily and without complication. The patient tolerated the procedure well without difficulty. Patient was in sinus rhythm throughout the study. Moderate Sedation/Anesthesia administration: Patient reports no prior problems with sedation/anesthesia. Please see pre-sedation noted for physical examination documentation. As noted above, after adequate local anesthesia of the posterior hypopharynx was achieved, a total of 3 mg intravenous Versed and a total of 75 mcg intravenous Fentanyl in multiple divided doses was administered for moderate sedation. Sedation start time was 1039 and end time was 1101 for a total intra-service/procedure face-face time of 22 minutes. Sedation was administered by a qualified/certified observer Kathryn Tim RN under my supervision with intra-procedure [id number] observation and management throughout the entirety of the procedure. There were no other issues or complications and patient tolerated the procedure well. See post-anesthesia documentation. Findings: Left ventricular size and systolic function within normal limits without wall motion abnormalities with ejection fraction of 65%. Right ventricular size and systolic function within normal limits. Left and right atrium are mildly enlarged. Interatrial septum is thin and aneurysmal without evidence of shunt with color-flow Doppler, however, significant bubbles crossed promptly after injection of agitated saline without Valsalva consistent with small ASD versus larger PFO. Mitral valve is anatomically normal with preserved leaflet excursion and mild
[2020-10-02] MEDS: hydrALAZINE HCL 20 MG/ML VIAL IV PUSH ×2 (10:19→22:05)
[2020-10-02] MEDS: ACETAMINOPHEN 325 MG TABLET 650 MG PO ×2 (11:48→16:59)
[2020-10-02] MEDS: ONDANSETRON INJ 4 MG/2 ML VIAL IV PUSH ×2 (17:34→22:54)
--- NOTE | 2020-10-02 18:41 | PM.IMPN ---
Progress Note: A&P Assessment and Plan (1) PFO (patent foramen ovale): Code(s): Q21.1 - Atrial septal defect Status: Acute Assessment and Plan: SENDY for further evaluation today (2) BPH (benign prostatic hyperplasia): Code(s): N40.0 - Benign prostatic hyperplasia without lower urinary tract symptoms Status: Chronic Assessment and Plan: Continue current medical therapy (3) GERD (gastroesophageal reflux disease): Code(s): K21.9 - Gastro-esophageal reflux disease without esophagitis Status: Chronic Assessment and Plan: PPI (4) Expressive aphasia: Code(s): R47.01 - Aphasia Status: Acute Assessment and Plan: Appears to be improving patient is able to answer my questions appropriately (5) Acute CVA (cerebrovascular accident): Code(s): I63.9 - Cerebral infarction, unspecified Status: Acute Assessment and Plan: Acute CVA under care of Neurology found to have a thalamic infarct time of admission (6) Hypertensive urgency: Code(s): I16.0 - Hypertensive urgency Status: Acute Assessment and Plan: Resolved (7) Right sided weakness: Code(s): R53.1 - Weakness Status: Acute Assessment and Plan: improved Additional Plan Patient is stable for transfer out of the ICU Anticipate patient to go to telemetry Continue current medical therapy Anticipate discharge to SNF versus home with home health care tomorrow Time Spent With Patient Time with patient: 25 - 35 minutes Subjective Date/time seen: 10/02/20 18:41 See today just prior to his SENDY. All questions answered patient reassured. Objective Data Vital Signs Vital Signs: Vital Signs - 24 hr 10/01/20 20:00 10/01/20 22:00 10/02/20 00:00 Temperature 98.3 F 97.8 F Pulse Rate 59 L 56 L 54 L Respiratory Rate 19 18 20 Blood Pressure 123/63 135/74 123/61 Pulse Oximetry 95 92 92 10/02/20 02:00 10/02/20 04:00 10/02/20 06:00 Temperature 97.7 F Pulse Rate 55 L 55 L 55 L Respiratory Rate 16 19 16 Blood Pressure 129/68 112/56 L 134/68 Pulse Oximetry 92 92 92 10/02/20 08:00 10/02/20 10:00 10/02/20 10:10 Temperature 97.6 F Pulse Rate 59 L 65 63 Respiratory Rate 16 16 15 Blood Pressure 168/86 H 188/93 H 184/97 H Pulse Oximetry 93 96 97 10/02/20 10:20 10/02/20 10:40 10/02/20 10:45 Temperature Pulse Rate 67 88 81 Respiratory Rate 18 17 19 Blood Pressure 182/95 H 191/86 H 189/99 H Pulse Oximetry 98 98 95 10/02/20 10:50 10/02/20 10:55 10/02/20 11:01 Temperature Pulse Rate 80 84 83 Respiratory Rate 21 H 21 H 17 Blood Pressure 168/84 H 146/76 H 153/82 H Pulse Oximetry 94 94 94 10/02/20 12:00 10/02/20 13:46 10/02/20 14:00 Temperature Pulse Rate 72 87 81 Respiratory Rate 18 16 Blood Pressure 159/93 H 149/95 H Pulse Oximetry 92 93 10/02/20 16:00 10/02/20 18:00 Temperature Pulse Rate 69 86 Respiratory Rate 16 Blood Pressure 125/69 Pulse Oximetry 93 Intake/Output Intake/Output: Intake & Output 09/29/20 09/30/20 10/01/20 10/02/20 23:59 23:59 23:59 23:59 Intake Total 1910 2780 830 240 Output Total 1074 815 5721 1950 Balance -40 6820 1320 -1710 Meds/Results Medications: Active Medications Generic Name Dose Route Start Last Admin Trade Name Rafaelq PRN Reason Stop Dose Admin Acetaminophen 650 mg 09/28/20 19:58 10/02/20 16:59 Acetaminophen 325 Mg Tablet PO 650 mg Q4H PRN Administration Mild Pain (1-3) or Fever Amlodipine Besylate 10 mg 10/01/20 09:00 10/02/20 08:58 Amlodipine Besylate 5 Mg Tablet PO 10 mg QAM [facility] Administration Atorvastatin Calcium 40 mg 09/30/20 09:05 10/02/20 08:58 Atorvastatin 40 Mg Tablet PO 40 mg DAILY [facility] Administration Clopidogrel Bisulfate 75 mg 09/29/20 09:00 10/02/20 08:58 Clopidogrel Bisulfate 75 Mg Tablet PO 75 mg DAILY [facility] Administration Enoxaparin Sodium 40 mg 10/02/20 09:00 10/02/20 08:57 Enoxapar
[2020-10-02] MEDS: traMADol HCL (*CRX) 50 MG TABLET PO (20:46)
[2020-10-02] MEDS: HYDROmorphone HCL INJ (*CRX) 1 MG/ML SYR 0.5 MG IV PUSH (23:00)
[2020-10-03] VITALS (9 sets, daily range): BP systolic 126–154; BP diastolic 74–82; PULSE 57–76; RESP 15–19; TEMP 36.3–36.7; O2SAT 90–95
[2020-10-03] MEDS: ACETAMINOPHEN 325 MG TABLET 650 MG PO ×2 (04:33→09:21)
[2020-10-03 04:56] LABS: Hematocrit 45.8 % (42.0-52.0); Mean Corpuscular HGB Conc 34.9 g/dl (32-36); Mean Corpuscular Hemoglobin 29.5 pg (26-34); Mean Corpuscular Volume 84.3 fl (80-100); Mean Platelet Volume 10.3 fl (7.4-10.4); Platelet Count Result 229 k/mm3 (150-375); Red Blood Count 5.43 M/mm3 (4.6-6.20); Red Cell Distribution Width 14.6 % (11.5-14.5); White Blood Count 9.3 K/mm3 (4.5-10.0)
[2020-10-03 05:09] LABS: Anion Gap 5 mmol/L (8-16); Blood Urea Nitrogen 21 mg/dL (9-20); Calcium 9.6 mg/dL (8.4-10.2); Carbon Dioxide 29 mmol/L (22-30); Chloride 96 mmol/L (98-107); Estimated CRCL calculation 71 ml/min; Estimated Glomerular Filt Rate > 60; Glucose 129 mg/dL (75-110); Magnesium 1.9 mg/dL (1.6-2.3); Potassium 3.8 mmol/L (3.4-5.0); Sodium 130 mmol/L (137-145)
[2020-10-03] MEDS: CLOPIDOGREL BISULFATE 75 MG TABLET PO (09:19)
[2020-10-03] MEDS: ENOXAPARIN 40 MG/0.4 ML SYRINGE SUB-Q (09:19)
[2020-10-03] MEDS: amLODIPine BESYLATE 5 MG TABLET 10 MG PO (09:19)
[2020-10-03] MEDS: ATORVASTATIN 40 MG TABLET PO (09:19)
[2020-10-03] MEDS: FAMOTIDINE 20 MG/2 ML VIAL IV PUSH (09:20)
[2020-10-03] MEDS: FINASTERIDE 5 MG TABLET PO (09:20)
[2020-10-03] MEDS: LOSARTAN POTASSIUM 100 MG TABLET PO (09:20)
[2020-10-03] MEDS: hydroCHLOROthiazide 12.5 MG CAPSULE PO (09:20)
--- NOTE | 2020-10-03 11:17 | PCPTNOTE ---
Spoke w/ Dr Pepper. Pt is indep w/ transfers and gait. She agreed w/ DC PT.
--- NOTE | 2020-10-03 12:54 | PM.DS ---
DS: Admitting Diagnosis Admitting Diagnosis Admitting Diagnosis: expressive aphasia hypertensive urgency DS: Discharge Diagnosis Discharge Diagnosis (1) Expressive aphasia: Code(s): R47.01 - Aphasia Status: Acute (2) Hypertensive urgency: Code(s): I16.0 - Hypertensive urgency Status: Acute Assessment and Plan: Patient has been admitted to ICU for his hypertensive urgency Cardene IV with parameters was initiated and his losartan was subsequently resumed. (3) GERD (gastroesophageal reflux disease): Code(s): K21.9 - Gastro-esophageal reflux disease without esophagitis Status: Chronic Assessment and Plan: Continue PPI therapy (4) BPH (benign prostatic hyperplasia): Code(s): N40.0 - Benign prostatic hyperplasia without lower urinary tract symptoms Status: Chronic Assessment and Plan: Continue finasteride DS: Summary Hospital Course Reason for hospitalization: dysarthria [facility] Hospital Course: 09/29 72-year-old male with history CVA in the past, hypertension, he presented emergency department with a complaint difficulty expressing himself and main spoke was not make any sense, symptoms resolved after 5 minutes, his checked his blood pressure it was elevated patient was brought to emergency department for further evaluation, patient further states his blood pressure is high early in the morning and has a headache after he takes his his blood pressure medication his headache resolved by 10 am, currently patient denies any complaint his speech is appears normal is able to carry on the conversation, denies any upper and lower extremity weaker, to further evaluate patient had a CT scan of the head which did not show any acute injury similarly patient had MRI of the head and did not see any acute injury, patient is on Plavix and patient was seen by neurologist commended will continue, patient did participate in physical therapy and did well, patient was admitted with similar symptoms about a month ago and CT scan of the head and in a MRI of the brain were essentially, seems patient recurrent TIA with history CVA in the past will consult shellfish sorter to rule proximal atrial fibrillation patient may need Holter monitor to further evaluate, will continue to monitor patient will have a PT OT work with the patient and will recommend outpatient physical therapy. Upon arrival patient blood pressure was extremely elevated 210/79 initially patient was admitted for hypertensive urgency and plan was to start the patient on Cardene IV however patient blood pressure trended and did not require any IV intervention his clinically stable for will continue to monitor. Now resolved. Rule out acute versus subacute stroke. Patient has expressive aphasia may also have been secondary to severely elevated hypertension. Patient is clearly not a candidate for tPA therapy given that his symptoms have resolved completely. Neuro checks, continue Plavix. Check hemoglobin A1c, recent lipid panel was obtained in June. Recent head and neck CTA with contrast was obtained last month as well as echocardiogram. Recent TSH was obtained in June. MRIs ordered for a.m.. Monitor blood pressure closely and continue Cardene drip. We will consult neurology. Appreciate neurology input. 09/30 today patient remains clinically stable and work with physical therapy, patient was seen by Cardiology recommended patient needs better control of his blood pressure increased losartan to 100 mg q.day from 25 mg q.day, recommended to continue monitor BP and if needed amlodipine can be increased to 10 mg from 5 mg, ordered cardiac echo with bubble study pending, will continue to monitor the and adjusted per patient medical as needed and follow-up on cardiac echo, continue per physical therapy and further recommendation to follow 10/01/20 Patient remains clinically stable Will undergo SENDY tomorrow Blood pressure better controlled Co
--- NOTE | 2020-10-03 13:55 | PM.PNCARD ---
Progress Note: A&P Assessment and Plan (1) Hypertensive urgency: Code(s): I16.0 - Hypertensive urgency Status: Acute Assessment and Plan: BP remains relatively uncontrolled. Appropriate BP control given recent stroke. Increase losartan to 100 mg daily. Discontinue p.r.n. hydralazine. May need to increase amlodipine to 10 mg daily and SBP remains >170mmHg. Avoid significant hypotension or overly aggressive BP lowering given CVA. Disposition per hospitalist service once BP control. Patient will stop by the office upon discharge for 30 day monitoring engineer. (2) Acute CVA (cerebrovascular accident): Code(s): I63.9 - Cerebral infarction, unspecified Status: Acute Assessment and Plan: Clopidogrel per Neurology. Add statin therapy. Goal LDL less than 70. Discussed risk reduction strategy with the patient and rationale. Atorvastatin 40 mg daily. Check lipid panel. LDL 85 in June 2020. Obtain limited 2D echo for bubble study to assess for PFO/ASD. Extensive discussion held with the patient and his at bedside with regards to medical management given concern for recurrent CVA and/or TIA. Although there is clearly evidence for hypertensive urgency is contributing given fairly sizable PFO/ASD can't entirely exclude this is contributory with regard to paradoxical embolus. Furthermore, he was on ASA and Plavix with most recent event which is concerning. We discussed literature supporting consideration for systemic anticoagulation in anticipation of PFO/ASD closure as potential contribution to CVA. Plan to pursue closure of ASD/PFO as an outpatient if atrial fibrillation/flutter is not noted on monitoring engineer which he will obtained discharge. All questions answered to their satisfaction. Clarify with Neurology when initiation of systemic anticoagulation with Eliquis 5 mg b.i.d. advised. I have been made aware neurology indicates safe to start at this time. I will then recommend discontinuation of clopidogrel and ASA to reduce bleeding risk. I then anticipate referring patient to [facility] with Dr. Thien Pickering for his opinion regarding closure of ASD/PFO. Will make a CD copy of his echo and SENDY for future use for the patient. (3) PSVT (paroxysmal supraventricular tachycardia): Code(s): I47.1 - Supraventricular tachycardia Status: Acute Assessment and Plan: Isolated, asymptomatic SVT possible atrial tachycardia. No atrial fibrillation or atrial flutter thus far on telemetry. Outpatient monitoring engineer 30 day from our office upon discharge. Follow-up with me in the office in 1 month for further discussion. We discussed potential contribution to cardioembolic stroke with atrial fibrillation and/or atrial flutter although no prior diagnosis of documentation thus far. Patient verbalized understanding and agreed with plan of care. Given intermittent bradycardia hold off on AV glenroy blocking agents for now. Subjective Date/time seen: Date of Service: 10/03/20 13:55 Interval history: 80-year-old man with: Follow up for ASD/PFO, Hypertension with symptoms of neurological concern with expressive aphasia and has imaging evidence of probably a couple of previous CVAs. He states he feels well. BP better controlled. Denies dizziness, chest pain or shortness of breath. No palpitations. No atrial fibrillation or atrial flutter on telemetry. Patient feels somewhat tired but no new issues overnight. Review of Systems Review of Systems: All systems reviewed & are unremarkable except as noted in HPI and below Constitutional: Constitutional: Reports as per HPI, Reports no additional constitutional complaints, Reports fatigue and Reports headache(s) Eyes: Eyes: Reports as per HPI and Reports no additional eye complaints ENT: Reports system reviewed and no additional complaints, except as documented, Reports as per HPI and Reports headache(s) Cardiovascular: Cardiovascular: Reports as per
== END 2020-10-03 14:45 | disposition home or self-care (01) | DRG 65 ==
LOC: ANHED 18:16 → ANH3MEDSUR 19:21 → ANHICU 22:19 → ANH3MEDSUR 09-29 14:21 → ANHICU 10-01 16:00 → ANH3MEDSUR 10-07 09:44 → ANHICU 10-07 09:44
PROVIDERS: Emergency Medicine Emergency Medical Services; Family Medicine; Internal Medicine Cardiovascular Disease; Admitting Provider Internal Medicine; Emergency Provider Family Medicine; PCP Family Medicine; Visit Provider Hospitalist
PROC: B24BZZ4 Ultrasonography of Heart with Aorta, Transesophageal (ICD-10-PCS; CPT 93312; principal; 2020-10-02 10:00)
DX: I63.9 Cerebral infarction, unspecified (principal); I47.1 Supraventricular tachycardia; Q21.1 Atrial septal defect; R47.01 Aphasia; R51.9 Headache, unspecified; R29.700 NIHSS score 0; I16.0 Hypertensive urgency; M19.90 Unspecified osteoarthritis, unspecified site; K21.9 Gastro-esophageal reflux disease without esophagitis; M70.22 Olecranon bursitis, left elbow; N40.0 Benign prostatic hyperplasia without lower urinary tract symptoms; Z87.891 Personal history of nicotine dependence
CPT/HCPCS: 36415; 70450; 70553; 71045; 80048; 80061; 83036; 83735; 84484; 85025; 85027; 85610; 85730; 93005; 93308; 93312; 93320; 93325; 96365; 96375; 97116; 97161; 97165; 99285; A9270; A9577; J0131; J0360; J1170; J1650; J1885; J2250; J2405; J3010; J7040

== ENCOUNTER 2020-10-03 19:44 | Observation (INO) | payer MEDICARE, OTHER, SELFPAY ==
[2020-10-03] VITALS (21 sets, daily range): BP systolic 138–195; BP diastolic 64–119; PULSE 65–114; RESP 11–23; TEMP 36.7–36.9; O2SAT 95–98; BMI 29.9; BMI 30.4
--- NOTE | ~2020-10-03 | MR_ITS ---
EXAMINATION: MRA brain wo con DATE: 10/06/2020 15:27 INDICATION: Migraine headache behind the right eye. TECHNIQUE: Magnetic resonance angiography (MRA) of the brain was performed without intravenous contra st with T1-weighted SPGR by the 3D [id number] technique. Maximum intensity projection 3D-reconstr uctions were obtained. COMPARISON: Brain MRI 09/29/2020, head CT 10/04/2020 FINDINGS: The vertebral arteries are codominant. There is no significant stenosis of basilar artery or the post erior cerebral arteries. There is no significant stenosis of the intracranial internal carotid arteri es or anterior or middle cerebral arteries. Anterior communicating artery is normal. The posterior co mmunicating arteries are normal. There is no aneurysm. IMPRESSION: 1. No aneurysm or significant intracranial arterial stenosis. Reviewed, dictated and finalized at location A.
--- NOTE | ~2020-10-03 | CT_ITS ---
EXAMINATION: CT brain wo con INDICATION: Headache and dizziness COMPARISON: 09/30/2020 TECHNIQUE: Standard unenhanced head CT. The dose-length product (DLP) was 681.00 mGy-cm. The mA was a djusted according to patient size. Iterative reconstruction technique was employed. FINDINGS: There is no acute intraparenchymal hemorrhage. No evidence of mass lesion. No evidence of a cute infarction. There is mild periventricular and subcortical hypodensity probably related to small vessel ischemic disease. There is mild prominence of the sulci and ventricles related to cerebral atr ophy. Intracranial calcified cerebral atherosclerosis is noted. There are no extra-axial collections. There is no mass effect or midline shift. Changes in the globes are likely from ocular lens surgery. There is mild mucosal thickening of the paranasal sinuses. IMPRESSION: 1. No acute intracranial abnormality. 2. Age related findings. Reviewed, dictated and finalized at location A.
--- NOTE | ~2020-10-03 | CT_ITS ---
EXAMINATION: CT brain wo con EXAM DATE: 10/04/2020 10:25 INDICATION: Headache. TECHNIQUE: Spiral CT of the head was performed without contrast. Axial, coronal and sagittal images were reviewed. The dose-length product (DLP) for this examination was 681.00 mGy-cm. The exposure w as tailored according to patient size, and iterative reconstruction (ASIR) was used as additional dos e reduction technique. Comparison is made to prior examination from 10/03/2020. FINDINGS: There is no acute intraparenchymal hemorrhage. No evidence of intraparenchymal brain mass lesion. No evidence of acute infarction. Please note that initial head CT has limited sensitivity f or small or acute infarctions. There is moderate periventricular and subcortical hypodensity, nonspec ific but probably related to small vessel ischemic disease. There is moderate prominence of the sul ci and ventricles related to cerebral atrophy. There is intracranial carotid arteriosclerosis. The re are no extra-axial collections. There is no mass effect or midline shift. Patient has had bilate ral ocular lens surgery. Soft tissue is unremarkable. The visualized sinuses and mastoid air cells are well aerated. IMPRESSION: 1. No acute intracranial findings. 2. Chronic age related findings. Reviewed, dictated and finalized at location A.
--- NOTE | 2020-10-03 19:52 | ECG_ITS ---
Measurements Intervals [place] Rate: 76 P: 24 ID: [id number] QRS: -24 QRSD: 97 T: 32 QT: 384 QTc: 433 Interpretive Statements SINUS RHYTHM WITH MARKED SINUS ARRHYTHMIA BASELINE ARTIFACT- I, II, AVR, AVL, AVF, V1, V3-V6 NORMAL ECG Electronically Signed On 10-07-2020 10:43:12 CDT by Oc Felder D.O.
--- NOTE | 2020-10-03 20:02 | ED.HA ---
HPI - Headache General Chief Complaint: Headache Stated Complaint: elevated blood pressure, vomiting Time Seen by Provider: 10/03/20 20:00 Source: RN notes reviewed History of Present Illness HPI Narrative: Patient presents to emergency department from home for headache. Patient states he developed a severe headache at approximately 1700 today associated with nausea and vomiting. Patient states he was just discharged from the [facility] ICU at approximately 1500 today. He had been admitted for stroke and found to have a septal defect and was started on Eliquis he also had hypertensive urgency at that time. States he is taking all of his afternoon medications and is due to take his evening medications around 10:00 denies any fevers or chills vision changes chest pain abdominal pain numbness or tingling in the extremities or any other symptoms Related Data Home Medications Medication Instructions Recorded Confirmed finasteride 5 mg PO DAILY 06/03/20 09/28/20 ICaps AREDS2 1 tablet PO BID 08/26/20 09/28/20 Allergies Allergy/AdvReac Type Severity Reaction Status Date / Time naproxen Allergy Unknown Unknown Verified 10/03/20 21:49 pneumococcal vaccine Allergy Unknown Rash Verified 10/03/20 21:49 Review of Systems Review of Systems: Narrative: Gen.: Denies fevers or chills Eyes: Denies eye pain or visual change ENT: Denies congestion Respiratory: Denies shortness of breath or cough CV: Denies chest pain or palpitations GI: Denies abdominal pain reports nausea vomiting Musculoskeletal: Denies back pain or muscle pain Neuro: See HPI Skin: Denies rash Except as documented, all other systems reviewed and negative [facility] Past Medical History Medical History Arthritis BMI 31.0-31.9,adult Cerebrovascular small vessel disease Coughing Diarrhea Dizziness Enlarged prostate GERD (gastroesophageal reflux disease) Hypertension Light headedness Olecranon bursitis, left elbow Screen for colon cancer Stroke TIA 30 years ago Surgical History Surgical History History of hernia repair History of knee surgery History of prostate surgery UROLIFT procedure History of shoulder surgery Family History Family History Grandparent Cerebrovascular accident Mother Family history of diabetes mellitus in first degree relative Cerebrovascular accident CAD (coronary artery disease) Hx of heart artery stent Father Malignant neoplasm of prostate Social History Social History Social History: The patient is and lives with his . She is his durable power correspondence school teacher for healthcare. The patient is a full code. The patient has 5 children. Patient stated that he quit smoking in 1978. 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 Smoking packs per day: 4 Smoking cigarettes per day: 80.0 Years smoked: 28 Smoking pack-years: 112.00 Smoking status: Former smoker Smoking end date: 06/27/78 Alcohol intake: former Substance use: never Substance use type: does not use Gender identity (if verbalized by the patient): Male Spiritual care concerns: No Exam Narrative: Exam Narrative: APPEARANCE: No acute distress, nontoxic, resting in bed EYES: EOMI HEENT: Normocephalic, atraumatic, OMM RESPIRATORY: No respiratory distress Clear to auscultation bilaterally with no rhonchi wheezing or rales. CARDIOVASCULAR: Regular rate and rhythm without murmurs rubs or gallops. ABDOMINAL: Soft, nontender, nondistended, no rebound or guarding MUSCULOSKELETAl: Moves all extremities. No clubbing, cyanosis or edema. NEURO: Awake and alert x 4. Following commands, speech normal, no focal deficits SKIN:: Warm, dry. No rashes lesions or abrasions PSYCHIATRIC:
[2020-10-03 20:15] LABS: Basophils Absolute Auto 0.1 K/mm3 (0.0-0.1); Basophils Percent Auto 0.6 % (0.2-1.2); Eosinophils Absolute Auto 0.1 K/mm3 (0-0.3); Eosinophils Percent Auto 0.9 % (0-4.4); Hematocrit 48.1 % (42.0-52.0); Hemoglobin 16.5 g/dL (14.0-18.0); Immature Granulocyte Absolute 0.03 K/mm3 (0.00-0.031); Immature Granulocyte Percent A 0.3 % (0-0.5); Lymphocytes Absolute Auto 1.77 K/mm3 (0.9-3.2); Lymphocytes Percent Auto 17.6 % (18.3-44.2); Mean Corpuscular HGB Conc 34.3 g/dl (32-36); Mean Corpuscular Hemoglobin 29.4 pg (26-34); Mean Corpuscular Volume 85.6 fl (80-100); Mean Platelet Volume 10.2 fl (7.4-10.4); Monocytes Absolute Auto 1.3 K/mm3 (0.1-0.6); Monocytes Percent Auto 12.4 % (2.6-8.5); Neutrophils Absolute Auto 6.9 K/mm3 (1.3-6.7); Neutrophils Percent Auto 68.2 % (45.5-73.1); Platelet Count Result 211 k/mm3 (150-375); Red Blood Count 5.62 M/mm3 (4.6-6.20); Red Cell Distribution Width 14.6 % (11.5-14.5); White Blood Count 10.1 K/mm3 (4.5-10.0)
[2020-10-03 20:24] LABS: Alanine Aminotransferase 20 U/L (4-50); Albumin Level 4.7 g/dL (3.5-5.1); Alkaline Phosphatase 60 U/L (38-126); Anion Gap 9 mmol/L (8-16); Aspartate Amino Transferase 24 U/L (17-59); Blood Urea Nitrogen 24 mg/dL (9-20); Calcium 10.1 mg/dL (8.4-10.2); Carbon Dioxide 28 mmol/L (22-30); Chloride 93 mmol/L (98-107); Estimated Glomerular Filt Rate > 60; Glucose 134 mg/dL (75-110); INR 0.9; Partial Thromboplastin Time 27.8 SECONDS (22.3-36.8); Potassium 3.6 mmol/L (3.4-5.0); Prothrombin Time 12.5 Seconds (11.1-14.7); Sodium 130 mmol/L (137-145)
[2020-10-03] MEDS: ONDANSETRON INJ 4 MG/2 ML VIAL IV PUSH (20:29)
[2020-10-03] MEDS: SODIUM CHLORIDE 0.9% IV 1,000 ML 999 ML IV CONT (20:30)
[2020-10-03] MEDS: hydrALAZINE HCL 20 MG/ML VIAL 10 MG IV PUSH (20:56)
[2020-10-03] MEDS: amLODIPine BESYLATE 5 MG TABLET PO (21:55)
[2020-10-03 22:47] LABS: Add Urine Microscopic? YES; Appearance Urine Clear (Clear); Bacteria Urine Trace /hpf; Bilirubin Urine Negative (Negative); Blood Urine Negative (Negative); Color Urine Yellow (Yellow); Glucose Urine UA Negative (Negative); Ketones Urine Negative (Negative); Leukocyte Esterase Ur Negative LEU/UL (Negative); Mucus Urine Rare /lpf; Nitrate Urine Negative (Negative); Protein Urine 2+ mg/dL (Negative); Specific Grav Ur 1.015 (1.001-1.035); Squamous Epithelial Cell Urine Rare /hpf (Few); Urobilinogen Urine Negative mg/dL (<2.0); WBC Urine 0-3 /hpf
--- NOTE | 2020-10-03 23:12 | PC.NURSE ---
This patient, Thien Tineo Ysabel, was admitted to IMU Room 204-01 on 10/03/20 at 2305. Patient/family oriented to hospital policies and general routines including ID bracelet, bed and alarms, visiting hours, pain management, procedures, bathroom and other care routines, personal items, smoking policy, room service/diet, and visiting hours. Information on how to activate the Rapid Response Team has been discussed. Patient/Family are encouraged to report perceived risks to care and to ask questions if they do not understand what they are told or what they should do.
[2020-10-04] VITALS (16 sets, daily range): BP systolic 129–167; BP diastolic 71–80; PULSE 58–86; RESP 16–21; TEMP 36–37.1; O2SAT 94–97
[2020-10-04] MEDS: HYDROcodone/acetaminophen (*CRX) 5-325 MG TABLET 1 TAB PO (01:33)
[2020-10-04 05:11] LABS: Basophils Percent Auto 0.4 % (0.2-1.2); Eosinophils Percent Auto 0.4 % (0-4.4); Hematocrit 43.6 % (42.0-52.0); Hemoglobin 15.2 g/dL (14.0-18.0); Immature Granulocyte Absolute 0.05 K/mm3 (0.00-0.031); Immature Granulocyte Percent A 0.5 % (0-0.5); Lymphocytes Absolute Auto 1.55 K/mm3 (0.9-3.2); Lymphocytes Percent Auto 15.2 % (18.3-44.2); Mean Corpuscular HGB Conc 34.9 g/dl (32-36); Mean Corpuscular Hemoglobin 29.7 pg (26-34); Mean Corpuscular Volume 85.3 fl (80-100); Mean Platelet Volume 11.1 fl (7.4-10.4); Monocytes Absolute Auto 1.3 K/mm3 (0.1-0.6); Monocytes Percent Auto 12.7 % (2.6-8.5); Neutrophils Absolute Auto 7.2 K/mm3 (1.3-6.7); Neutrophils Percent Auto 70.8 % (45.5-73.1); Platelet Count Result 212 k/mm3 (150-375); Red Blood Count 5.11 M/mm3 (4.6-6.20); Red Cell Distribution Width 14.5 % (11.5-14.5); White Blood Count 10.2 K/mm3 (4.5-10.0)
[2020-10-04 05:25] LABS: Anion Gap 6 mmol/L (8-16); Blood Urea Nitrogen 21 mg/dL (9-20); Calcium 9.3 mg/dL (8.4-10.2); Carbon Dioxide 28 mmol/L (22-30); Chloride 97 mmol/L (98-107); Estimated CRCL calculation 69 ml/min; Estimated Glomerular Filt Rate > 60; Glucose 117 mg/dL (75-110); Potassium 3.7 mmol/L (3.4-5.0); Sodium 131 mmol/L (137-145)
[2020-10-04] MEDS: FINASTERIDE 5 MG TABLET PO (08:59)
[2020-10-04] MEDS: APIXABAN 5 MG TABLET PO ×2 (08:59→16:49)
[2020-10-04] MEDS: LOSARTAN POTASSIUM 100 MG TABLET PO (08:59)
[2020-10-04] MEDS: hydroCHLOROthiazide 25 MG TABLET PO (08:59)
[2020-10-04] MEDS: ATORVASTATIN 40 MG TABLET PO (08:59)
[2020-10-04] MEDS: OPTI-GEN TAB 1 TABLET PO ×2 (08:59→16:49)
[2020-10-04] MEDS: ASPIRIN 81 MG CHEWABLE TABLET PO (09:01)
--- NOTE | 2020-10-04 09:04 | PM.IMHP ---
H&P: HPI History of Present Illness Date/Time: 10/04/20 09:04 Patient discharged yesterday with new CVA, newly diagnosed PFO, hypertensive urgency, returns to the ER agin in acute hypertensive urgency with systolic blood pressure greater than 190. He is admitted for blood pressure medication titration close observation. At the time my interview patient blood pressure has been improved and he complains of headache. Chief Complaint: MELVIN hypertensive urgency Review of Systems Review of Systems: All systems reviewed & are unremarkable except as noted in HPI and below PMFSH Past Medical History Medical History Arthritis BMI 31.0-31.9,adult Cerebrovascular small vessel disease Coughing Diarrhea Dizziness Enlarged prostate GERD (gastroesophageal reflux disease) Hypertension Light headedness Olecranon bursitis, left elbow Screen for colon cancer Stroke TIA 30 years ago Surgical History Surgical History History of hernia repair History of knee surgery History of prostate surgery UROLIFT procedure History of shoulder surgery Family History Family History Grandparent Cerebrovascular accident Mother Family history of diabetes mellitus in first degree relative Cerebrovascular accident CAD (coronary artery disease) Hx of heart artery stent Father Malignant neoplasm of prostate Social History Social History Social History: The patient is and lives with his . She is his durable power managing attorney for healthcare. The patient is a full code. The patient has 5 children. Patient stated that he quit smoking in 1978. 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 Smoking packs per day: 4 Smoking cigarettes per day: 80.0 Years smoked: 4 Smoking pack-years: 16.00 Smoking status: Former smoker Smoking end date: 06/27/78 Alcohol intake: never Substance use: never Substance use type: does not use Gender identity (if verbalized by the patient): Male Spiritual care concerns: No Meds Home Medications and Allergies Home Medications Medication Instructions Recorded Confirmed Type finasteride 5 mg PO DAILY 06/03/20 10/03/20 History ICaps AREDS2 1 tablet PO BID 08/26/20 10/03/20 History amlodipine [Norvasc] 5 mg PO QAM #90 tablet 10/03/20 10/03/20 Rx apixaban [Eliquis] 5 mg PO BID #60 tablet 10/03/20 10/03/20 Rx aspirin [Adult Low Dose Aspirin] 81 mg PO DAILY 10/03/20 10/03/20 History atorvastatin 40 mg PO DAILY #90 tablet 10/03/20 10/03/20 Rx clopidogrel 75 mg PO DAILY 10/03/20 10/03/20 History hydrochlorothiazide 25 mg PO QAM #90 tablet 10/03/20 10/03/20 Rx losartan 100 mg PO DAILY #90 tablet 10/03/20 10/03/20 Rx Allergies Allergy/AdvReac Type Severity Reaction Status Date / Time naproxen Allergy Unknown Unknown Verified 10/03/20 21:49 pneumococcal vaccine Allergy Unknown Rash Verified 10/03/20 21:49 Vital Signs Vital Signs - 24 hr 10/03/20 19:50 10/03/20 20:17 10/03/20 20:20 Temperature Pulse Rate 75 67 65 Respiratory Rate 14 18 13 Blood Pressure 195/119 H 172/72 H Pulse Oximetry 97 95 96 10/03/20 20:36 10/03/20 20:45 10/03/20 21:00 Temperature Pulse Rate 68 70 74 Respiratory Rate 14 15 19 Blood Pressure Pulse Oximetry 96 98 10/03/20 21:01 10/03/20 21:02 10/03/20 21:29 Temperature Pulse Rate 74 89 85 Respiratory Rate 18 21 H 20 Blood Pressure 192/106 H Pulse Oximetry 10/03/20 21:30 10/03/20 21:31 10/03/20 21:32 Temperature Pulse Rate 84 86 81 Respiratory Rate 16 14 18 Blood Pressure 180/89 H Pulse Oximetry 10/03/20 22:06 10/03/20 22:15 10/03/20 22:23 Temperature Pulse Rate 84 114 H 85 Respiratory Rate 11 L 23 H 15 Blood Pressure 176/87 H Pulse
[2020-10-04] MEDS: ACETAMINOPHEN 325 MG TABLET 650 MG PO (09:14)
[2020-10-04] MEDS: NIFEdipine 30 MG TAB.ER.24 PO ×2 (10:44→21:04)
[2020-10-04] MEDS: polyethylene glycoL 3350 17 GM POWD.PACK PO (21:04)
--- NOTE | 2020-10-04 21:58 | PC.NURSE ---
Nifedipine XL 30mg po given for B/P 167/69 per order.
[2020-10-05] VITALS (28 sets, daily range): BP systolic 101–186; BP diastolic 63–102; PULSE 58–91; RESP 15–22; TEMP 35.7–37.1; O2SAT 95–97
[2020-10-05] MEDS: ATORVASTATIN 40 MG TABLET PO (08:04)
[2020-10-05] MEDS: NIFEdipine 30 MG TAB.ER.24 PO ×3 (08:05→17:29)
[2020-10-05] MEDS: APIXABAN 5 MG TABLET PO ×2 (08:05→17:29)
[2020-10-05] MEDS: LOSARTAN POTASSIUM 100 MG TABLET PO (08:05)
[2020-10-05] MEDS: OPTI-GEN TAB 1 TABLET PO ×2 (08:05→17:28)
[2020-10-05] MEDS: hydroCHLOROthiazide 25 MG TABLET PO (08:05)
[2020-10-05] MEDS: FINASTERIDE 5 MG TABLET PO (08:06)
--- NOTE | 2020-10-05 09:14 | PM.DS ---
DS: Admitting Diagnosis Admitting Diagnosis Admitting Diagnosis: hypertensive urgency headache DS: Discharge Diagnosis Discharge Diagnosis (1) Hypertensive urgency: Code(s): I16.0 - Hypertensive urgency Status: Acute (2) Headache: Code(s): R51.9 - Headache, unspecified Status: Acute DS: Summary Hospital Course Reason for hospitalization: Hypertensive urgency Hospital Course: 72-year-old male with recurring episodes of hypertensive urgency admitted to the hospital with systolic blood pressure greater than 190. He had a benign clinical course blood pressure medications were titrated and he was discharged home condition on new blood pressure medication regimen. With indications to follow up with his primary care physician for ongoing blood pressure medication titration in the outpatient setting. Additionally he is to follow-up with cardiology for closure of his PFO. Time Spent with Patient Time attestation: Total time spent providing and/or coordinating discharge services: Time spent: Greater than 30 minutes Exam Narrative: Exam Narrative: GEN: NAD, AAOx3, cooperative HEENT: NCAT, MMM, EOMI Neck: no JVD Heart: S1S2 RRR Lungs: CTA B/l Abd: soft, NT, ND, bowel sounds normoactive Ext: moves all, no cyanosis, no clubbing, no edema Discharge Plan Discharge Attending physician on discharge: Elke Pepper Discharging Clinician: Elke Pepper Anticipated Discharge Date/Time: 10/05/20 13:54 Patient Disposition: Home, Self-Care Activity: unlimited Diet: heart healthy Patient Instructions: Antibiotic Form, Apixaban (By mouth), Atrial Septal Defect (DC), Hypertensive Crisis (DC), Hypertension (DC), Patent Foramen Ovale (DC) Patient Language: Bengali Stand Alone Forms: General Discharge Information Follow-up/Referrals: Frank Frazier MD [Primary Care Provider] - Discharge Medications: New polyethylene glycol 3350 [Miralax] 17 gram Powder In Packet 17 g PO DAILY PRN (Reason: Constipation) Qty: 30 RF: 0 nifedipine [Procardia XL] 30 mg Tablet Extended Release 24hr 30 mg PO BID Qty: 120 RF: 0 Continued finasteride 5 mg tablet 5 mg PO DAILY RF: 0 Adult Low Dose Aspirin 81 mg Tablet 81 mg PO DAILY RF: 0 ICaps AREDS2 1 tablet PO BID RF: 0 atorvastatin 40 mg Tablet 40 mg PO DAILY Qty: 90 RF: 0 losartan 100 mg Tablet 100 mg PO DAILY Qty: 90 RF: 0 Eliquis 5 mg tablet 5 mg PO BID Qty: 60 RF: 3 Discontinued clopidogrel 75 mg tablet 75 mg PO DAILY RF: 0 amlodipine [Norvasc] 5 mg Tablet 5 mg PO QAM Qty: 90 RF: 0 hydrochlorothiazide 25 mg Tablet 25 mg PO QAM Qty: 90 RF: 0 Date of admission: 10/03/20 21:53 Primary Care Provider: Frank Frazier Admitting Provider: Bonnie Willingham Attending physician on admission: Bonnie Willingham Condition: Stable
[2020-10-05] MEDS: MENTHOL 10% / METHYL SALICYLATE 15% 57 GM TUBE 1 APPLIC TOPICAL (09:58)
[2020-10-05] MEDS: ASPIRIN 81 MG CHEWABLE TABLET PO (09:58)
[2020-10-05] MEDS: IBUPROFEN 400 MG TABLET PO (12:35)
--- NOTE | 2020-10-05 19:13 | PM.IMPN ---
Progress Note: A&P Assessment and Plan (1) Hypertensive urgency: Code(s): I16.0 - Hypertensive urgency Status: Acute (2) Headache: Code(s): R51.9 - Headache, unspecified Status: Acute Additional Plan 72-year-old male with recurring episodes of hypertensive urgency admitted to the hospital with systolic blood pressure greater than 190. He had a benign clinical course blood pressure medications were titrated and he was discharged home condition on new blood pressure medication regimen with indications to follow up with his primary care physician for ongoing blood pressure medication titration in the outpatient setting. Additionally he is to follow-up with cardiology for closure of his PFO. however, patient continued to complain of headache and was noted to have elevated blood pressure that improved with treatment of his headache. Therefore, discharge was canceled and patient to remain in patient overnight with further monitoring and titration of both pain medication for his headaches possibly migraine and also for his blood pressure. Additionally, I have requested an MRI to be performed since this is an ongoing acute process. Assessment and plan (1) Hypertensive urgency: Assessment and Plan: Continue losartan Continue HCTZ d/c amlodipine add nifedipine 30XL QD increase to BID control MELVIN P.r.n. hydralazine and labetalol (2) Headache: Assessment and Plan: hypertension versus migraines (pt w extremely elevated SBP at time of arrival to ER w c/o MELVIN cont despite improvement in BP -> CT noncon STAT negative headache continue despite improvement of blood pressure Fioricet MRI P.r.n. Tylenol or ibuprofen (3) Recent Acute CVA (cerebrovascular accident): Assessment and Plan: Continue OAC in the presence of PFO No significant carotid disease PT/OT (4) PFO (patent foramen ovale): Assessment and Plan: plan is for outpt evaluation and closure at [facility] Date/time seen: 10/05/20 19:13 patient complaining of headache and feeling unwell. He has a history of migraine but denies having an Arb like he previously did. Headaches have been going on for over 2 weeks and have not been resolved they have been temporized with Tylenol. No nausea no vomiting no dizziness no visual changes no focal neurologic deficits Exam Narrative: Exam Narrative: GEN: NAD, AAOx3, cooperative HEENT: NCAT, MMM, EOMI Neck: no JVD Heart: S1S2 RRR Lungs: CTA B/l Abd: soft, NT, ND, bowel sounds normoactive Ext: moves all, no cyanosis, no clubbing, no edema Objective Data Vital Signs Vital Signs: Vital Signs - 24 hr 10/04/20 20:00 10/04/20 22:00 10/05/20 00:00 Temperature 98 F 98.7 F Pulse Rate 66 86 60 Respiratory Rate 16 15 Blood Pressure 167/79 H 126/80 Pulse Oximetry 97 95 10/05/20 02:00 10/05/20 03:43 10/05/20 04:00 Temperature 97 F L Pulse Rate 63 61 58 L Respiratory Rate 16 Blood Pressure 131/76 Pulse Oximetry 97 97 10/05/20 06:00 10/05/20 07:39 10/05/20 08:00 Temperature 96.3 F L Pulse Rate 59 L 59 L 58 L Respiratory Rate 20 Blood Pressure 142/81 H Pulse Oximetry 96 10/05/20 10:00 10/05/20 12:00 10/05/20 12:04 Temperature 96.3 F L Pulse Rate 81 75 84 Respiratory Rate 20 Blood Pressure 101/63 Pulse Oximetry 97 10/05/20 12:14 10/05/20 12:29 10/05/20 12:30 Temperature Pulse Rate 69 Respiratory Rate Blood Pressure 123/67 115/73 119/69 Pulse Oximetry 96 10/05/20 13:41 10/05/20 13:44 10/05/20 13:47 Temperature Pulse Rate Respiratory Rate Blood Pressure 186/83 H 175/92 H 159/85 H Pulse Oximetry 10/05/20 14:00 10/05/20 14:19 10/05/20 16:00 Temperature Pulse Rate 88 91 80 Respiratory Rate Blood Pressure 180/102 H Pulse Oximetry 97 10/05/20 16:12 10/05/20 16:31 10/05/20 16:33 Temperature 97.4 F L Pulse Rate 90 Respiratory Rate 22 H Blood Pressure 150/74 H 133/87
[2020-10-06] VITALS (9 sets, daily range): BP systolic 132–136; BP diastolic 82–89; PULSE 55–93; RESP 18–22; TEMP 36.1–36.9; O2SAT 95–98
[2020-10-06] MEDS: FINASTERIDE 5 MG TABLET PO (10:07)
[2020-10-06] MEDS: ASPIRIN 81 MG CHEWABLE TABLET PO (10:07)
[2020-10-06] MEDS: APIXABAN 5 MG TABLET PO (10:08)
[2020-10-06] MEDS: NIFEdipine 30 MG TAB.ER.24 PO (10:08)
[2020-10-06] MEDS: ATORVASTATIN 40 MG TABLET PO (10:08)
[2020-10-06] MEDS: LOSARTAN POTASSIUM 100 MG TABLET PO (10:08)
[2020-10-06] MEDS: OPTI-GEN TAB 1 TABLET PO (10:09)
[2020-10-06] MEDS: LORazepam INJ (*CRX) 2 MG/ML VIAL 1 MG IV PUSH (14:33)
--- NOTE | 2020-10-06 16:00 | PM.DS ---
DS: Admitting Diagnosis Admitting Diagnosis Admitting Diagnosis: Chief Complaint: Difficulty speaking and elevated blood pressure DS: Discharge Diagnosis Discharge Diagnosis (1) Headache: Code(s): R51.9 - Headache, unspecified Status: Acute DS: Summary Hospital Course Reason for hospitalization: Chief Complaint: Difficulty speaking and elevated blood pressure Narrative: This is a pleasant 80-year-old male with known history of chronic hypertension and previous CVA who is known to have an extensive past cigarette smoking history and presented to the hospital for evaluation of difficulty speaking as well as left-sided posterior and frontal headache. The patient was last known to be normal right before noon today and his noticed that he started having difficulty expressing himself. She said he was making incomprehensible sounds and this lasted for about 5 minutes in duration. They checked his blood pressure and found that it was severely elevated and decided to come to the hospital for evaluation. The patient reports having daily headaches that usually resolve around 10:00 a.m. they also have noticed that his blood pressure has been around 180 systolic when he first wakes up in the morning but after he takes his losartan a comes down to normal range by mid morning. The patient denies passing out, head trauma, seizure-like activity, blurry vision, double vision, facial droop, difficulty swallowing, numbness or tingling, focal weakness, incontinence, or other neurological symptoms. His remarks that his only other symptom today was feeling fatigued. On further review he also denies any recent fevers, chills, neck stiffness, chest pain, shortness of breath, sore throat, abdominal pain, nausea, vomiting, dysuria, hematuria, diarrhea, or rectal bleeding. The patient was just recently admitted to our hospital approximately 1 month ago and worked up for stroke which was negative at that time. He had a similar presentation at that time with expressive aphasia. He was told that he had a TIA. The patient reports that he was recently started on Plavix and is no longer taking aspirin. Brain CT was obtained in the emergency room this evening which demonstrated an age-indeterminant lacunar infarct of left thalamus. The patient's blood pressure in the emergency room has been very difficult to control and he has received various antihypertensive medications. ER provider has consulted our bacon skin lifter the patient will be admitted to the ICU. On my encounter with the patient tonight he has no other complaints and no recurrence of his expressive aphasia. The patient explained to me that he quit smoking approximately 40 years ago and for the majority of the 20 years that he did smoke, he was smoking 1 pack per day. He does report that his last 5 years of smoking was about 4 packs per day. Hospital Course: 72-year-old male with recurring episodes of hypertensive urgency admitted to the hospital with systolic blood pressure greater than 190. He had a benign clinical course blood pressure medications were titrated and he was discharged home condition on new blood pressure medication regimen with indications to follow up with his primary care physician for ongoing blood pressure medication titration in the outpatient setting. Additionally he is to follow-up with cardiology for closure of his PFO. however, patient continued to complain of headache and was noted to have elevated blood pressure that improved with treatment of his headache. Therefore, discharge was canceled and patient to remain in patient overnight with further monitoring and titration of both pain medication for his headaches possibly migraine and also for his blood pressure. Additionally, I have requested an MRI to be performed since this is an ongoing acute process. Patient manuel c/o of MELVIN had MR of brain no aneurysm or significant intracranial arterial stenosis. patient remains clinically
== END 2020-10-06 17:10 | disposition home or self-care (01) ==
LOC: ANHED 21:55 → ANHIMU 23:06
PROVIDERS: Admitting Provider Internal Medicine; Emergency Provider Emergency Medicine; PCP Family Medicine; Visit Provider Family Medicine
DX: I16.0 Hypertensive urgency (principal); R47.9 Unspecified speech disturbances; R51.9 Headache, unspecified; R55 Syncope and collapse; I10 Essential (primary) hypertension; Z86.73 Personal history of transient ischemic attack (TIA), and cerebral infarction without residual deficits; Z87.891 Personal history of nicotine dependence
CPT/HCPCS: 36415; 70450; 70544; 80048; 80053; 81001; 85025; 85610; 85730; 93005; 96361; 96365; 96375; 99285; A9270; G0378; J0131; J0360; J2060; J2405; J7030

== ENCOUNTER 2020-11-13 09:23 | Emergency (ER) | payer MEDICARE, OTHER, SELFPAY ==
--- NOTE | ~2020-11-13 | XR_ITS ---
XR ankle RT min 3V DATE: 11/13/2020 09:50 INDICATION: Redness and bruising of medial ankle for 3 days. No injury. TECHNIQUE: 4 views COMPARISON: None FINDINGS: There is mild medial soft tissue swelling. No fracture or dislocation of the ankle or disru ption of the ankle mortise. No periosteal reaction or bone destruction. Small plantar calcaneal spur. IMPRESSION: Mild medial soft tissue swelling the ankle Small plantar calcaneal spur Reviewed, dictated and finalized at location B.
[2020-11-13 09:33] VITALS: BP 121/88; PULSE 58; RESP 18; TEMP 36.6; O2SAT 99
--- NOTE | 2020-11-13 09:36 | ED.LOWEXIN ---
HPI - Extremity Injury (Lower) General Chief Complaint: Extremity Injury, Lower Stated Complaint: Right Swollen ankle Time Seen by Provider: 11/13/20 09:37 Source: patient Mode of arrival: ambulatory Limitations: no limitations History of Present Illness HPI Narrative: Thien Tineo is a 80 yo male with a PMH of stroke, HTN, chronic anticoagulation, high cholesterol, BPH, came to [facility] with complaints of pain in right ankle that started on Tuesday and swelling and bruising started yesterday. Denies any known trauma. Patient able to move foot flex and extend the pain on walking Related Data Home Medications Medication Instructions Recorded Confirmed aspirin 81 mg PO DAILY 10/03/20 11/13/20 amlodipine 5 mg PO DAILY 11/13/20 11/13/20 apixaban [Eliquis] 5 mg PO DAILY 11/13/20 11/13/20 finasteride 5 mg PO DAILY 11/13/20 11/13/20 nifedipine 30 mg PO BID 11/13/20 11/13/20 omeprazole 40 mg PO DAILY 11/13/20 11/13/20 Allergies Allergy/AdvReac Type Severity Reaction Status Date / Time pneumococcal vaccine Allergy Intermediate Hives Verified 11/13/20 10:06 naproxen Allergy Mild Hives Verified 11/13/20 10:05 Review of Systems Review of Systems: Narrative: CONSTITUTIONAL: Denies fever, chills, sweats. EYES: Denies visual changes, redness, discharge. ENT: Denies rhinorrhea, congestion, sore throat, otalgia. CARDIOVASCULAR: Denies chest pain, palpitations, edema. RESPIRATORY: Denies dyspnea, wheezing, cough GASTROINTESTINAL: Denies abdominal pain, nausea, vomiting, diarrhea. GENITOURINARY: Denies dysuria, hematuria, abnormal discharge SKIN: Denies rash or itching. NEUROLOGIC: Denies numbness, or focal weakness. PSYCHIATRIC: Denies anxiety or depression. Right ankle pain and swelling PMFSH Past Medical History Medical History Arthritis BMI 31.0-31.9,adult BMI 33.0-33.9,adult Cerebrovascular small vessel disease Chronic anticoagulation Coughing Diarrhea Dizziness Enlarged prostate GERD (gastroesophageal reflux disease) Hypertension Light headedness Olecranon bursitis, left elbow Right orbit trauma Screen for colon cancer Sprain of ulnar collateral ligament of metacarpophalangeal (MCP) joint of left thumb Stroke TIA 30 years ago Surgical History Surgical History History of hernia repair History of knee surgery History of prostate surgery UROLIFT procedure History of shoulder surgery Family History Family History Grandparent Cerebrovascular accident Mother Family history of diabetes mellitus in first degree relative Cerebrovascular accident CAD (coronary artery disease) Hx of heart artery stent Father Malignant neoplasm of prostate Social History Social History Social History: The patient is and lives with his . She is his durable power trial attorney for healthcare. The patient is a full code. The patient has 5 children. Patient stated that he quit smoking in 1978. 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 Smoking packs per day: 4 Smoking cigarettes per day: 80.0 Years smoked: 4 Smoking pack-years: 16.00 Smoking end date: 06/27/78 Alcohol intake: never Substance use: never Substance use type: does not use Gender identity (if verbalized by the patient): Male Spiritual care concerns: No Comments At time of signature, I agree with nursing past medical, surgical, social and family history. There is no relevant family history pertinent to the presenting complaint. Exam Narrative: Exam Narrative: GENERAL: This is a well-nourished, well-developed patient, in mild distress. HEAD: normocephalic, atraumatic. EYES: Sclera clear/white. Vision is grossly intact. EARS: External ears normal, Hearing g
== END 2020-11-13 10:33 | disposition home or self-care (01) ==
PROVIDERS: Emergency Provider Nurse Practitioner; PCP Family Medicine
DX: S93.421A Sprain of deltoid ligament of right ankle, initial encounter (principal); X58.XXXA Exposure to other specified factors, initial encounter; M19.90 Unspecified osteoarthritis, unspecified site; N40.0 Benign prostatic hyperplasia without lower urinary tract symptoms; K21.9 Gastro-esophageal reflux disease without esophagitis; I10 Essential (primary) hypertension; Z86.73 Personal history of transient ischemic attack (TIA), and cerebral infarction without residual deficits; I67.9 Cerebrovascular disease, unspecified; Z87.891 Personal history of nicotine dependence
CPT/HCPCS: 73610; 99213; G0463

== ENCOUNTER 2021-01-02 15:10 | Emergency (ER) | payer MEDICARE, OTHER, SELFPAY ==
--- NOTE | ~2021-01-02 | XR_ITS ---
EXAMINATION: XR finger 2nd RT min 2V EXAM DATE: 01/02/2021 16:13 INDICATION: Puncture injury right 2nd finger. TECHNIQUE: Right 2nd finger frontal, lateral and oblique projections obtained and reviewed. Comparis on is made to prior examination from 03/21/2017. FINDINGS: There are no acute right 2nd finger fractures or dislocations identified. There are no bony erosions identified. There is no subcutaneous gas. The soft tissue is unremarkable. There are n o radiopaque foreign bodies. 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 IMPRESSION: No acute osseous findings. Reviewed, dictated and finalized at location B. IMPRESSION: No acute osseous findings.
[2021-01-02 15:52] VITALS: BP 132/78; PULSE 51; RESP 18; TEMP 37.1; O2SAT 97
--- NOTE | 2021-01-02 17:15 | ED.WOUNDLAC ---
HPI - Wound/Laceration General Chief Complaint: Wound/Laceration Stated Complaint: finger laceration Time Seen by Provider: 01/02/21 16:16 Source: patient Mode of arrival: ambulatory Limitations: no limitations History of Present Illness HPI narrative: Patient is a 80-year-old male who presents with a laceration to right index finger. He reports reports puncture wound from saw. Patient is approximately 1 cm laceration to right index finger, bleeding controlled with dressing. Patient is on anticoagulants. Patient reports tetanus is up-to-date. Patient denies other injuries. Related Data Home Medications Medication Instructions Recorded Confirmed aspirin 81 mg PO DAILY 10/03/20 11/13/20 amlodipine 5 mg PO DAILY 11/13/20 11/13/20 apixaban [Eliquis] 5 mg PO DAILY 11/13/20 11/13/20 finasteride 5 mg PO DAILY 11/13/20 11/13/20 Allergies Allergy/AdvReac Type Severity Reaction Status Date / Time pneumococcal vaccine Allergy Intermediate Hives Verified 01/02/21 15:55 naproxen Allergy Mild Hives Verified 01/02/21 15:55 Review of Systems Review of Systems: Narrative: CONSTITUTIONAL: Denies fever, chills, or sweats. EYES: Denies visual changes, redness, or discharge. ENT: Denies rhinorrhea, congestion, sore throat, or otalgia. CARDIOVASCULAR: Denies chest pain, palpitations, or edema. RESPIRATORY: Denies cough or dyspnea. GASTROINTESTINAL: Denies abdominal pain, nausea, vomiting, or diarrhea. GENITOURINARY: Denies dysuria or hematuria. SKIN: Laceration to right index finger MUSCULOSKELETAL: Denies back pain, joint pain, or myalgia. NEUROLOGIC: Denies headache, numbness, dizziness, or weakness. PSYCHIATRIC: Denies anxiety or depression. [facility] Past Medical History Medical History Arthritis BMI 31.0-31.9,adult BMI 33.0-33.9,adult Cerebrovascular small vessel disease Chronic anticoagulation Coughing Diarrhea Dizziness Enlarged prostate GERD (gastroesophageal reflux disease) Hypertension Light headedness Olecranon bursitis, left elbow Right orbit trauma Screen for colon cancer Sprain of ulnar collateral ligament of metacarpophalangeal (MCP) joint of left thumb Stroke TIA 30 years ago Surgical History Surgical History History of hernia repair History of knee surgery History of prostate surgery UROLIFT procedure History of shoulder surgery Family History Family History Grandparent Cerebrovascular accident Mother Family history of diabetes mellitus in first degree relative Cerebrovascular accident CAD (coronary artery disease) Hx of heart artery stent Father Malignant neoplasm of prostate Social History Social History Social History: The patient is and lives with his . She is his durable power criminal attorney for healthcare. The patient is a full code. The patient has 5 children. Patient stated that he quit smoking in 1978. 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 Smoking packs per day: 4 Smoking cigarettes per day: 80.0 Years smoked: 4 Smoking pack-years: 16.00 Smoking end date: 06/27/78 Alcohol intake: never Substance use: never Substance use type: does not use Gender identity (if verbalized by the patient): Male Spiritual care concerns: No Comments At the time of signature, I have reviewed and agree with nursing past medical, surgical, social, and family history unless otherwise noted. Please see nursing chart for further information. There is no relevant family history pertinent to the presenting complaint. Exam Narrative: Exam Narrative: GENERAL: Well-appearing, well-nourished, and in no acute distress. HEAD: Normocephalic, atraumatic. EYES: EOMI. No redness or drainage. ENT: Mucous membrane
[2021-01-02 18:21] VITALS: BP 148/88; PULSE 51; RESP 16; O2SAT 97
== END 2021-01-02 18:22 | disposition home or self-care (01) ==
PROVIDERS: Emergency Provider Nurse Practitioner; PCP Family Medicine
DX: S61.210A Laceration without foreign body of right index finger without damage to nail, initial encounter (principal); M19.90 Unspecified osteoarthritis, unspecified site; N40.0 Benign prostatic hyperplasia without lower urinary tract symptoms; K21.9 Gastro-esophageal reflux disease without esophagitis; I10 Essential (primary) hypertension; Z86.73 Personal history of transient ischemic attack (TIA), and cerebral infarction without residual deficits; Z87.891 Personal history of nicotine dependence; Z79.82 Long term (current) use of aspirin; Z79.01 Long term (current) use of anticoagulants; W27.0XXA Contact with workbench tool, initial encounter
CPT/HCPCS: 12001; 73140; 99283

== ENCOUNTER → 2021-01-10 01:00 | Outpatient (CLI) | payer MEDICARE, OTHER, SELFPAY ==
[2021-01-10 16:46] LABS: SARS-CoV-2 RNA PCR Negative
== END ==
PROVIDERS: PCP Family Medicine; Visit Provider Internal Medicine Cardiovascular Disease
DX: Z01.812 Encounter for preprocedural laboratory examination (principal); Z20.822 Contact with and (suspected) exposure to COVID-19
CPT/HCPCS: C9803; U0003; U0005

== ENCOUNTER 2021-01-14 02:39 | Day surgery (SDC) | payer MEDICARE, OTHER, SELFPAY ==
[2021-01-13 15:21] VITALS: BMI 32.5
[2021-01-14 08:01] VITALS: BP 119/74; PULSE 53; RESP 14; TEMP 36; O2SAT 97; BMI 34.3
--- NOTE | 2021-01-14 08:24 | WPDHPUPDATE1 ---
History and Physical Update Update Date/Time: 01/14/21 08:24 History and Physical has been reviewed, including an updated exam of the patient. There are NO changes in the patient's condition. Risks, benefits, and alternatives have been discussed and questions answered. Patient agrees to proceed with procedure.
--- NOTE | 2021-01-14 08:25 | P.OPB_ITS ---
Procedure Note - Brief Procedure Note - Brief Date of procedure: 01/14/21 Pre-op diagnosis: svt, palpitations, cad Post-op diagnosis: same Procedure performed: Loop recorder implantation Description of procedure: Brief history present illness: Patient is a pleasant 80-year-old male with a history of ASD/PFO, hypertension, current CVA, palpitations, SVT prior stroke left thalamic lacunar a new small right cerebellar infarction during recent hospitalization referred for loop recorder implantation for evaluation for cardioembolic stroke secondary to atrial fibrillation and/or atrial flutter. Eliquis held for 3 full days prior to this procedure. After verbal and written informed consent was obtained from the patient risks, benefits, and alternatives explained in detail the patient agreed to proceed with the plan of care as outlined above. Patient was evaluated at bedside in the [facility] procedure room. Patient was placed the appropriate supine position. Left anterior chest wall was prepped and draped in the usual sterile fashion. Operators in appropriate sterile garb. The left 4th intercostal space was identified and marked. Utilizing approximately 35 cc of 1% subcutaneous lidocaine the left anterior chest wall was then locally anesthetized. After local anesthesia was achieved, 2 fingerbreadths left of the sternum at the 4th intercostal space was again identified and a 1 cm incision was made with the included skin punch tool. Following this with the included introducer device, a tract was made subcutaneously at a 45 degree angle from the sternum. The the plunger was then unlocked and retracted fully with successful delivery of the loop recorder without complication.degrees and with the included plunger the Biotronik BioMonitor IIIm loop recorder was advanced subcutaneously into position easily and without complication. The plunger device was then removed. Manual pressure was held for least 10-15 min with excellent hemostasis. The device was then interrogated and revealed excellent fidelity and measured at average 1.5 mV. The Biotronik Biomonitor IIIm device SN [id number] was implanted without complication. The incision was then approximated and closed using Exo fini skin adhesive. The incision was then covered with a sterile dressing. Complications: None Anesthesia: local Surgeon: David Tyson MD Drains: No Packing: No Pathology: none sent Complications: No immediate complications Condition: stable Disposition: same day Findings: Successful implantation of Biotronik Biomonitor III SN [id number] without complication.
== END 2021-01-14 09:30 | disposition home or self-care (01) ==
PROVIDERS: PCP Family Medicine; Visit Provider Internal Medicine Cardiovascular Disease
PROC: (CPT 33285; principal; 2021-01-14 08:30)
DX: I47.1 Supraventricular tachycardia (principal); R00.2 Palpitations; I25.10 Atherosclerotic heart disease of native coronary artery without angina pectoris; Z79.01 Long term (current) use of anticoagulants
CPT/HCPCS: 33285; C1764

== ENCOUNTER 2021-01-20 10:55 | Outpatient (CLI) | payer MEDICARE, OTHER, SELFPAY ==
[2021-01-20 11:40] LABS: Alanine Aminotransferase 27 U/L (4-50); Albumin Level 4.2 g/dL (3.5-5.1); Alkaline Phosphatase 55 U/L (38-126); Anion Gap 9 mmol/L (8-16); Aspartate Amino Transferase 25 U/L (17-59); Bilirubin,Total 0.6 mg/dL (0.2-1.3); Blood Urea Nitrogen 26 mg/dL (9-20); Calcium 9.3 mg/dL (8.4-10.2); Carbon Dioxide 24 mmol/L (22-30); Chloride 103 mmol/L (98-107); Estimated Glomerular Filt Rate 59; Glucose 101 mg/dL (65-110); Potassium 4.7 mmol/L (3.4-5.0); Sodium 136 mmol/L (137-145)
== END 2021-01-20 10:56 | disposition home or self-care (01) ==
PROVIDERS: PCP Family Medicine; Visit Provider Internal Medicine Cardiovascular Disease
DX: Z51.81 Encounter for therapeutic drug level monitoring (principal); Z79.01 Long term (current) use of anticoagulants
CPT/HCPCS: 36415; 80053

== ENCOUNTER 2021-01-28 16:22 | Outpatient (CLI) | payer MEDICARE, OTHER, SELFPAY ==
[2021-01-28 17:00] LABS: Basophils Absolute Auto 0.1 K/mm3 (0.0-0.1); Basophils Percent Auto 1.2 % (0.2-1.2); Eosinophils Absolute Auto 0.5 K/mm3 (0-0.3); Eosinophils Percent Auto 5.6 % (0-4.4); Immature Granulocyte Absolute 0.05 K/mm3 (0.00-0.031); Immature Granulocyte Percent A 0.6 % (0-0.5); Mean Corpuscular HGB Conc 33.3 g/dl (32-36); Mean Corpuscular Hemoglobin 29.9 pg (26-34); Mean Corpuscular Volume 89.7 fl (80-100); Mean Platelet Volume 10.5 fl (7.4-10.4); Monocytes Absolute Auto 0.9 K/mm3 (0.1-0.6); Monocytes Percent Auto 9.8 % (2.6-8.5); Neutrophils Absolute Auto 4.8 K/mm3 (1.3-6.7); Neutrophils Percent Auto 53.8 % (45.5-73.1); Platelet Count Result 194 k/mm3 (150-375); Red Blood Count 4.35 M/mm3 (4.6-6.20); Red Cell Distribution Width 14.6 % (11.5-14.5)
[2021-01-28 17:11] LABS: Anion Gap 8 mmol/L (8-16); Blood Urea Nitrogen 25 mg/dL (9-20); Calcium 9.3 mg/dL (8.4-10.2); Carbon Dioxide 23 mmol/L (22-30); Chloride 103 mmol/L (98-107); Estimated Glomerular Filt Rate 53; Glucose 140 mg/dL (65-110); Potassium 4.7 mmol/L (3.4-5.0); Sodium 134 mmol/L (137-145)
[2021-01-28 17:30] LABS: Add Urine Microscopic? YES; Appearance Urine Clear (Clear); Bacteria Urine Trace /hpf; Bilirubin Urine Negative (Negative); Blood Urine Negative (Negative); Color Urine Yellow (Yellow); Glucose Urine UA Negative (Negative); Ketones Urine Negative (Negative); Leukocyte Esterase Ur Negative LEU/UL (NEGATIVE); Mucus Urine Rare /lpf; Nitrate Urine Negative (Negative); Protein Urine Negative (Negative); RBC Urine 0-2 /hpf (0-2); Specific Grav Ur 1.012 (1.001-1.035); Squamous Epithelial Cell Urine Rare /hpf (Few); Urobilinogen Urine Negative mg/dL (<2.0); WBC Urine 0-3 /hpf (0-3)
== END 2021-01-28 16:23 | disposition home or self-care (01) ==
PROVIDERS: PCP Family Medicine; Visit Provider Internal Medicine
DX: Q21.1 Atrial septal defect (principal)
CPT/HCPCS: 36415; 80048; 81001; 85025

== ENCOUNTER → 2021-02-14 02:03 | Outpatient (CLI) | payer MEDICARE, OTHER, SELFPAY ==
[2021-02-15 01:36] LABS: SARS-CoV-2 RNA PCR Negative
== END ==
PROVIDERS: PCP Family Medicine; Visit Provider Family Medicine
DX: R51.9 Headache, unspecified (principal); Z20.822 Contact with and (suspected) exposure to COVID-19
CPT/HCPCS: C9803; U0003; U0005

== ENCOUNTER 2021-06-24 20:07 | Emergency (ER) | payer MEDICARE, OTHER, SELFPAY ==
[2021-06-24 20:31] VITALS: BP 159/69; PULSE 61; RESP 16; TEMP 36.9; O2SAT 98
--- NOTE | 2021-06-24 20:52 | ED.URI ---
HPI - URI/Sore Throat General Chief Complaint: Upper Respiratory Infection Stated Complaint: cough Time Seen by Provider: 06/24/21 20:43 Source: patient and RN notes reviewed Mode of arrival: ambulatory Limitations: no limitations History of Present Illness HPI Narrative: Patient presents today complaining of 5-day history of nasal congestion, postnasal drip, productive cough, rhinorrhea. He also reports some pain in the diaphragm area with coughing. Is been taking some Tylenol for pain. Denies history of asthma or COPD. He has not been vaccinated against COVID-19 or flu. MD elicited complaint: cough Related Data Home Medications Medication Instructions Recorded Confirmed finasteride 5 mg PO DAILY 11/13/20 02/12/21 PreserVision AREDS-2 1 tablet PO BID 01/13/21 02/12/21 clopidogrel 75 mg tablet 75 mg PO DAILY 02/12/21 02/12/21 tamsulosin mg PO 06/24/21 Allergies Allergy/AdvReac Type Severity Reaction Status Date / Time pneumococcal vaccine Allergy Intermediate Hives Verified 06/24/21 20:22 naproxen Allergy Mild Hives Verified 06/24/21 20:22 Review of Systems Review of Systems: CONSTITUTIONAL: Denies body aches, fever, chills, or sweats. EYES: Denies visual changes, redness, or discharge. ENT: Denies sore throat, or otalgia.+ Congestion, postnasal drip, rhinorrhea CARDIOVASCULAR: Denies chest pain, palpitations, or edema. RESPIRATORY: Denies dyspnea.+ Cough GASTROINTESTINAL: Denies abdominal pain, nausea, vomiting, or diarrhea. GENITOURINARY: Denies dysuria or hematuria. SKIN: Denies rash, itching, or wounds. MUSCULOSKELETAL: Denies back pain, joint pain, or myalgia. NEUROLOGIC: Denies headache, numbness, tingling, or weakness. PSYCH: Denies depression or anxiety. [facility] Past Medical History Medical History Arthritis BMI 31.0-31.9,adult BMI 33.0-33.9,adult BMI over 35 Cerebrovascular small vessel disease Chronic anticoagulation Coughing Diarrhea Dizziness Enlarged prostate GERD (gastroesophageal reflux disease) Hypertension Light headedness Olecranon bursitis, left elbow Right orbit trauma Screen for colon cancer Sprain of ulnar collateral ligament of metacarpophalangeal (MCP) joint of left thumb Stroke TIA 30 years ago Surgical History Surgical History History of hernia repair History of knee surgery History of prostate surgery UROLIFT procedure History of shoulder surgery Family History Family History Grandparent Cerebrovascular accident Mother Family history of diabetes mellitus in first degree relative Cerebrovascular accident CAD (coronary artery disease) Hx of heart artery stent Father Malignant neoplasm of prostate Social History Social History Social History: The patient is and lives with his . She is his durable power trademark attorney for healthcare. The patient is a full code. The patient has 5 children. Patient stated that he quit smoking in 1978. 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 Smoking packs per day: 4 Smoking cigarettes per day: 80.0 Years smoked: 4 Smoking pack-years: 16.00 Tobacco type: cigarettes Smoking end date: 08/24/78 Alcohol intake: never Substance use: never Substance use type: does not use Gender identity (if verbalized by the patient): Male Sexual Orientation (if Verbalized by the Patient): Straight or Heterosexual Spiritual care concerns: No Comments At time of signature, I have reviewed and agree with nursing past medical, surgical, social and family history unless otherwise noted. Please see nursing chart for further information. There is no relevant family history pertinent to the presenting complaint Exam Narrativ
== END 2021-06-24 21:00 | disposition home or self-care (01) ==
PROVIDERS: Emergency Provider Nurse Practitioner
DX: J40 Bronchitis, not specified as acute or chronic (principal); J06.9 Acute upper respiratory infection, unspecified; F17.210 Nicotine dependence, cigarettes, uncomplicated; M19.90 Unspecified osteoarthritis, unspecified site; Z79.01 Long term (current) use of anticoagulants; N40.0 Benign prostatic hyperplasia without lower urinary tract symptoms; K21.9 Gastro-esophageal reflux disease without esophagitis; I10 Essential (primary) hypertension; Z86.73 Personal history of transient ischemic attack (TIA), and cerebral infarction without residual deficits; I67.9 Cerebrovascular disease, unspecified
CPT/HCPCS: 99213; G0463

== ENCOUNTER 2021-07-01 10:19 | Outpatient (CLI) | payer MEDICARE, OTHER, SELFPAY ==
--- NOTE | ~2021-07-01 | XR_ITS ---
XR chest 2V DATE: 07/01/2021 10:37 INDICATION: Shortness of breath TECHNIQUE: PA and lateral views COMPARISON:09/28/2020 portable AP chest /04/2017 PA and lateral chest FINDINGS: Septal closure device overlies the right heart. Electronic monitor device is implanted in t he lower medial left anterior chest wall. Normal heart size. Aortic calcification and mild tortuosity. No hilar or mediastinal enlargement. No pulmonary infiltrate or consolidation, pleural effusion or pulmonary vascular congestion or pneumo thorax. Diffuse idiopathic skeletal hyperostosis of the thoracic spine. IMPRESSION: No active cardiopulmonary disease Aortic atherosclerosis Reviewed, dictated and finalized at location A. [facility] PRACTICE NURSE
== END 2021-07-01 10:20 | disposition home or self-care (01) ==
LOC: ANHIMG 10:25
PROVIDERS: PCP Family Medicine; Visit Provider Physician Assistant Medical
DX: R06.02 Shortness of breath (principal); I70.0 Atherosclerosis of aorta
CPT/HCPCS: 71046

== ENCOUNTER 2021-08-09 15:19 | Emergency (ER) | payer MEDICARE, OTHER, SELFPAY ==
--- NOTE | ~2021-08-09 | XR_ITS ---
EXAMINATION: XR chest 2V DATE: 08/09/2021 16:08 INDICATION: Post COVID cough, tobacco use TECHNIQUE: AP and lateral views of the chest are obtained. COMPARISON: 07/01/2021 FINDINGS: The lungs are free of acute opacities. There is no pleural effusion or pneumothorax. The he art size is normal. An ASD closure device is noted. A loop recorder projects over the left lower ches t. There is moderate thoracic spondylosis. IMPRESSION: 1. No acute cardiopulmonary abnormality. Reviewed, dictated and finalized at location F. RUBBER FABRICATOR
[2021-08-09 15:28] VITALS: BP 145/72; PULSE 57; RESP 16; TEMP 36.1; O2SAT 98
--- NOTE | 2021-08-09 15:38 | ED.URI ---
HPI - URI/Sore Throat General Chief Complaint: Upper Respiratory Infection Stated Complaint: cough/sob Time Seen by Provider: 08/09/21 15:46 Source: patient and RN notes reviewed Mode of arrival: ambulatory Limitations: no limitations History of Present Illness HPI Narrative: 81-year-old male presents with concern for ongoing cough. He reports ongoing illness since May. Reports he was treated for bronchitis at the end of May. Reports he was diagnosed with COVID at the beginning of June. Reports since he has had COVID he has had intermittent nasal congestion. Reports he has had persistent cough, wheezing, occasional shortness of breath. Reports he has been using Mucinex DM and an albuterol inhaler. Reports she is using the albuterol inhaler 2-3 times a day, he last used it at 10 AM he denies fever. Reports fatigue. MD elicited complaint: cough Related Data Home Medications Medication Instructions Recorded Confirmed finasteride 5 mg PO DAILY 11/13/20 08/09/21 tamsulosin 0.4 mg PO DAILY 06/24/21 08/09/21 aspirin 81 mg PO DAILY 08/09/21 08/09/21 Allergies Allergy/AdvReac Type Severity Reaction Status Date / Time pneumococcal vaccine Allergy Intermediate Hives Verified 08/09/21 15:50 Review of Systems Review of Systems: CONSTITUTIONAL: Reports malaise, fatigue. Denies chills, sweats, or fever. EYES: Denies visual changes, redness, or discharge. ENT: Denies rhinorrhea, sinus pain, otalgia and sore throat. Reports intermittent nasal congestion CARDIOVASCULAR: Denies chest pain, palpitations, or edema. RESPIRATORY: Reports cough, wheezing, occasional dyspnea. GASTROINTESTINAL: Denies abdominal pain, nausea, vomiting, diarrhea SKIN: Denies rash or itching. MUSCULOSKELETAL: Denies myalgia. NEUROLOGIC: Denies headache. All systems reviewed & are unremarkable except as noted in HPI and below PMFSH Past Medical History Medical History Arthritis BMI 31.0-31.9,adult BMI 33.0-33.9,adult BMI over 35 Cerebrovascular small vessel disease Chronic anticoagulation Coughing Diarrhea Dizziness Enlarged prostate GERD (gastroesophageal reflux disease) Hypertension Light headedness Olecranon bursitis, left elbow Right orbit trauma Screen for colon cancer Sprain of ulnar collateral ligament of metacarpophalangeal (MCP) joint of left thumb Stroke TIA 30 years ago Surgical History Surgical History History of hernia repair History of knee surgery History of prostate surgery UROLIFT procedure History of shoulder surgery Family History Family History Grandparent Cerebrovascular accident Mother Family history of diabetes mellitus in first degree relative Cerebrovascular accident CAD (coronary artery disease) Hx of heart artery stent Father Malignant neoplasm of prostate Social History Social History Social History: The patient is and lives with his . She is his durable power gas reverser for healthcare. The patient is a full code. The patient has 5 children. Patient stated that he quit smoking in 1978. 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 Smoking packs per day: 4 Smoking cigarettes per day: 80.0 Years smoked: 4 Smoking pack-years: 16.00 Tobacco type: cigarettes Smoking end date: 08/24/78 Alcohol intake: never Substance use: never Substance use type: does not use Gender identity (if verbalized by the patient): Male Sexual Orientation (if Verbalized by the Patient): Straight or Heterosexual Spiritual care concerns: No Comments At time of signature, agree with nursing past medical, surgical, social and family history. There is no relevant family history pertinent to the prese
== END 2021-08-09 16:25 | disposition home or self-care (01) ==
PROVIDERS: Emergency Provider Nurse Practitioner
DX: J32.9 Chronic sinusitis, unspecified (principal); J40 Bronchitis, not specified as acute or chronic; Z87.891 Personal history of nicotine dependence; M19.90 Unspecified osteoarthritis, unspecified site; Z79.01 Long term (current) use of anticoagulants; N40.0 Benign prostatic hyperplasia without lower urinary tract symptoms; K21.9 Gastro-esophageal reflux disease without esophagitis; I10 Essential (primary) hypertension; Z86.73 Personal history of transient ischemic attack (TIA), and cerebral infarction without residual deficits; I67.9 Cerebrovascular disease, unspecified
CPT/HCPCS: 71046; 99213; G0463

== ENCOUNTER 2021-10-28 07:53 | Outpatient (CLI) | payer MEDICARE, OTHER, SELFPAY ==
--- NOTE | 2021-10-28 12:31 | WPDPFTINT ---
PFT Procedure Performed PFT Procedure Performed Spirometry with Pre/Post Bronchodilator Plethysmography (Lung Vol) Diffusing Cap (DLCO) Flow Vol Loop PFT Interpretation This is a pulmonary function test with pre and post-bronchodilator spirometry, plethysmography and diffusing capacity. The test was performed and results interpreted in accordance with the 2019 and 2005 ATS/ERS Task Force guidelines respectively using the Global Lung Function Initiative-2012 reference equations. Patient demonstrated good effort and cooperation. Reproducibility criteria were met. The quality of the pre bronchodilator spirometry maneuver was Grade A and post bronchodilator spirometry maneuver was Grade A. Findings: Spirometry: Contour the inspiratory and expiratory flow tracing are normal. The pre bronchodilator FVC is 3.28 L, 83% predicted. The pre bronchodilator FEV1 is 2.23 L, 76% predicted. The pre bronchodilator FEV1: FVC ratio 68%. The post bronchodilator FVC is 3.94 L, representing a 20% increase. The post bronchodilator FEV1 is 2.75 L, representing a 23% increase. The post bronchodilator FEV1: FVC ratio 70%. Plethysmography: The total lung capacity 7.28 L, 103% predicted. The functional residual capacity is 4.09 L, 107% predicted. The residual volume is 3.37 L, 127% predicted. Diffusing capacity: The diffusing capacity unadjusted for hemoglobin and carboxyhemoglobin is 22.6, 94% predicted. The diffusing capacity adjusted for alveolar volume is 4.09, 112% predicted. Impression: The spirometry is normal without evidence of an obstructive abnormality. There is significant improvement after inhaling a single dose of albuterol. The lung volumes are normal. The diffusing capacity is normal. There are no prior studies for comparison
== END 2021-10-28 07:54 | disposition home or self-care (01) ==
LOC: ANHPFT 07:54
PROVIDERS: PCP Family Medicine; Visit Provider Family Medicine
DX: R06.02 Shortness of breath (principal); R05.9 Cough, unspecified
CPT/HCPCS: 94060; 94726; 94729

== ENCOUNTER 2021-11-13 00:04 | Day surgery (SDC) | payer MEDICARE, OTHER, SELFPAY ==
[2021-10-29 14:30] VITALS: BMI 35.7
--- NOTE | 2021-11-12 15:44 | PM.HPGS ---
History of Present Illness History of Present Illness Consent: Risks, benefits, and alternatives have been discussed and questions answered. Patient agrees to proceed with procedure. Chief complaint: neoplasm screening Narrative: Thien Tineo Sr. is a 81 year old male Who was referred for colon cancer screening. Review of Systems Review of Systems: All systems reviewed & are unremarkable except as noted in HPI and below PMFSH Past Medical History Medical History Arthritis BMI 31.0-31.9,adult BMI 33.0-33.9,adult BMI over 35 Cerebrovascular small vessel disease Chronic anticoagulation Coughing Diarrhea Dizziness Enlarged prostate GERD (gastroesophageal reflux disease) Hypertension Light headedness Olecranon bursitis, left elbow Right orbit trauma Screen for colon cancer Sprain of ulnar collateral ligament of metacarpophalangeal (MCP) joint of left thumb Stroke TIA 30 years ago Surgical History Surgical History History of hernia repair History of knee surgery History of prostate surgery UROLIFT procedure History of shoulder surgery Family History Family History Grandparent Cerebrovascular accident Mother Family history of diabetes mellitus in first degree relative Cerebrovascular accident CAD (coronary artery disease) Hx of heart artery stent Father Malignant neoplasm of prostate Social History Social History Social History: The patient is and lives with his . She is his durable power estate attorney for healthcare. The patient is a full code. The patient has 5 children. Patient stated that he quit smoking in 1978. 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 Smoking packs per day: 4 Smoking cigarettes per day: 80.0 Years smoked: 4 Smoking pack-years: 16.00 Tobacco type: cigarettes Smoking end date: 08/24/78 Alcohol intake: never Alcohol use details: 2x yearly Substance use: never Substance use type: does not use Living arrangements: with family Gender identity (if verbalized by the patient): Male Sexual Orientation (if Verbalized by the Patient): Straight or Heterosexual Spiritual care concerns: No Meds Home Medications and Allergies Home Medications Medication Instructions Recorded Confirmed Type finasteride 5 mg PO DAILY 11/13/20 11/13/21 History nifedipine 30 mg tablet,extended 30 mg PO BID #180 tablet 05/14/21 11/13/21 Rx release propranolol 20 mg tablet 20 mg PO Q12H #180 tablet 05/14/21 11/13/21 Rx tamsulosin 0.4 mg PO DAILY 06/24/21 11/13/21 History albuterol sulfate 90 mcg/actuation 1 inh INHALATION Q4H PRN #6.7 g 06/30/21 11/13/21 Rx aerosol inhaler aspirin 81 mg PO DAILY 08/09/21 11/13/21 History omeprazole 40 mg capsule,delayed 40 mg PO DAILY #90 cap 09/06/21 11/13/21 Rx release umeclidinium 62.5 mcg-vilanterol 1 inh INHALATION DAILY 10/08/21 11/13/21 History 25 mcg/actuation powdr for inhalation atorvastatin 40 mg PO DAILY 10/29/21 11/13/21 History losartan 100 mg PO DAILY 10/29/21 11/13/21 History sodium bicarbonate-sodium chloride 1 packet .ROUTE BID PRN #50 ea 10/29/21 11/13/21 Rx packet for sinus irrigation benzonatate 200 mg capsule 200 mg PO BID PRN #60 cap 11/10/21 11/13/21 Rx Allergies Allergy/AdvReac Type Severity Reaction Status Date / Time pneumococcal vaccine Allergy Intermediate Hives Verified 11/13/21 06:16 Exam Const: General: alert Orientation/consciousness: patient oriented x3 Resp: Auscultation: clear to auscultation bilaterally Cardio: Rhythm: regular rhythm GI: GI Palp: Yes Soft to palpation and No Tenderness to palpation present (GI) Neuro: General: patient oriented x3 Assessment and Plan Assessment and luis antonio
[2021-11-13 06:19] VITALS: BP 155/84; PULSE 49; RESP 16; TEMP 36.1; O2SAT 97; BMI 36.2
[2021-11-13] MEDS: LACTATED RINGERS 1,000 ML 150 ML IV CONT (06:28)
--- NOTE | 2021-11-13 07:17 | WPDANESEPPF ---
Anes - Initial Pre Proc Eval Procedure: Operation Date: 11/13/21 07:30 Proposed Procedures p Screening Colonoscopy - Shai Faith MD Date/Time: 11/13/21 07:17 Surgeon: Shai Faith MD Pre Op Diagnosis: neoplasm screening Patient Data Age: 81 Gender: M Height: 1.78 m Weight: 114.6 kg Last Vital Signs Temp 96.9 F L 11/13/21 06:19 Pulse 49 L 11/13/21 06:19 Resp 16 11/13/21 06:19 BP 155/84 H 11/13/21 06:19 Pulse Ox 97 11/13/21 06:19 Allergies Allergy/AdvReac Type Severity Reaction Status Date / Time pneumococcal vaccine Allergy Intermediate Hives Verified 11/13/21 06:16 Home Medications Medication Instructions Recorded Confirmed Type finasteride 5 mg PO DAILY 11/13/20 11/13/21 History nifedipine 30 mg tablet,extended 30 mg PO BID #180 tablet 05/14/21 11/13/21 Rx release propranolol 20 mg tablet 20 mg PO Q12H #180 tablet 05/14/21 11/13/21 Rx tamsulosin 0.4 mg PO DAILY 06/24/21 11/13/21 History albuterol sulfate 90 mcg/actuation 1 inh INHALATION Q4H PRN #6.7 g 06/30/21 11/13/21 Rx aerosol inhaler aspirin 81 mg PO DAILY 08/09/21 11/13/21 History omeprazole 40 mg capsule,delayed 40 mg PO DAILY #90 cap 09/06/21 11/13/21 Rx release umeclidinium 62.5 mcg-vilanterol 1 inh INHALATION DAILY 10/08/21 11/13/21 History 25 mcg/actuation powdr for inhalation atorvastatin 40 mg PO DAILY 10/29/21 11/13/21 History losartan 100 mg PO DAILY 10/29/21 11/13/21 History sodium bicarbonate-sodium chloride 1 packet .ROUTE BID PRN #50 ea 10/29/21 11/13/21 Rx packet for sinus irrigation benzonatate 200 mg capsule 200 mg PO BID PRN #60 cap 11/10/21 11/13/21 Rx Patient hx anesthesia problems: none Family hx anesthesia problems: none Results Review: All pre-operative results and documents have been reviewed as part of the pre-operative evaluation. [facility] Past Medical History Medical History Arthritis BMI 31.0-31.9,adult BMI 33.0-33.9,adult BMI over 35 Cerebrovascular small vessel disease Chronic anticoagulation Coughing Diarrhea Dizziness Enlarged prostate GERD (gastroesophageal reflux disease) Hypertension Light headedness Olecranon bursitis, left elbow Right orbit trauma Screen for colon cancer Sprain of ulnar collateral ligament of metacarpophalangeal (MCP) joint of left thumb Stroke TIA 30 years ago Surgical History Surgical History History of hernia repair History of knee surgery History of prostate surgery UROLIFT procedure History of shoulder surgery Family History Family History Grandparent Cerebrovascular accident Mother Family history of diabetes mellitus in first degree relative Cerebrovascular accident CAD (coronary artery disease) Hx of heart artery stent Father Malignant neoplasm of prostate Social History Social History (Updated 10/08/21 @ 14:37 by Estefania Vázquez) Social History: The patient is and lives with his . She is his durable power pool finisher for healthcare. The patient is a full code. The patient has 5 children. Patient stated that he quit smoking in 1978. 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 Smoking packs per day: 4 Smoking cigarettes per day: 80.0 Years smoked: 4 Smoking pack-years: 16.00 Tobacco type: cigarettes Smoking end date: 08/24/78 Alcohol intake: never Alcohol use details: 2x yearly Substance use: never Substance use type: does not use Living arrangements: with family Gender identity (if verbalized by the patient): Male Sexual Orientation (if Verbalized by the Patient): Straight or Heterosexual Spiritual care concerns: No Anes - Eval Final PreProcedure Day of Procedure 11/13/21 07:17 Patient weight: obese Heart: regular rate and rhythm Lungs: joe
[2021-11-13 07:55] VITALS: BP 135/74; PULSE 46; RESP 18; O2SAT 98
[2021-11-13 08:05] VITALS: BP 139/78; PULSE 48; RESP 18; O2SAT 100
[2021-11-13 08:15] VITALS: BP 146/96; PULSE 46; RESP 20; O2SAT 100
== END 2021-11-13 08:28 | disposition home or self-care (01) ==
PROVIDERS: PCP Family Medicine; Visit Provider Internal Medicine Gastroenterology
PROC: 0DJD8ZZ Inspection of Lower Intestinal Tract, Via Natural or Artificial Opening Endoscopic (ICD-10-PCS; CPT 45378; principal; 2021-11-13 07:30)
DX: Z12.11 Encounter for screening for malignant neoplasm of colon (principal); K57.30 Diverticulosis of large intestine without perforation or abscess without bleeding; K63.5 Polyp of colon; Z79.82 Long term (current) use of aspirin; Z79.51 Long term (current) use of inhaled steroids; M19.90 Unspecified osteoarthritis, unspecified site; Z79.01 Long term (current) use of anticoagulants; K21.9 Gastro-esophageal reflux disease without esophagitis; Z86.73 Personal history of transient ischemic attack (TIA), and cerebral infarction without residual deficits; N40.0 Benign prostatic hyperplasia without lower urinary tract symptoms; I73.9 Peripheral vascular disease, unspecified; F17.210 Nicotine dependence, cigarettes, uncomplicated; E66.9 Obesity, unspecified; Z68.36 Body mass index [BMI] 36.0-36.9, adult
CPT/HCPCS: 45385; 88305; J2704; J7120

== ENCOUNTER 2022-08-24 10:57 | Outpatient (CLI) | payer MEDICARE, OTHER, SELFPAY ==
--- NOTE | ~2022-08-24 | CT_ITS ---
EXAMINATION:CT chest high resolution wo co DATE: 08/24/2022 11:31 INDICATION: Chronic cough. TECHNIQUE: Computed tomography (CT) of the chest was performed without intravenous contrast. Automate d exposure control and iterative reconstruction technique were employed. The dose-length product (DLP ) was 576.72 mGy-cm. COMPARISON: Chest 2 views 08/09/2021, neck CT 08/26/2020 FINDINGS: There is mild scarring at the lung apices. There is a 9 mm nodule in right upper lobe with worsening from 08/26/20. There is mild atelectasis bilaterally. There is mild scarring in paraspinal ri ght lower lobe. There is a 5 mm nodule in right lower lobe. There is a 4 mm nodule in left lower lobe . There are a few scattered 2-3 mm nodules in the lungs. Calcified bilateral lung nodules and calcifi ed mediastinal lymph nodes are consistent with old granulomatous disease. No bronchiectasis or honeyc ombing. The heart size is normal. There is an interatrial closure device. There are coronary artery c alcifications. No pericardial effusion. There is diffuse hepatic steatosis. There is electronic impla nt in left anterior chest wall. There is moderate thoracic spondylosis. There is mild chronic anterio r wedging of multiple vertebral bodies. IMPRESSION: 1. Worsened 9 mm pulmonary nodule, which may be granulomatous disease or less likely primary bronchog enic carcinoma. Noncontrast low-dose chest CT is recommended in 3 months. Reviewed, dictated and finalized at location [facility]. [employer] IMPRESSION: 1. Worsened 9 mm pulmonary nodule, which may be granulomatous disease or less l ikely primary bronchogenic carcinoma. Noncontrast low-dose chest CT is recommen ded in 3 months.
== END 2022-08-24 10:58 | disposition home or self-care (01) ==
PROVIDERS: PCP Family Medicine; Visit Provider Family Medicine
DX: R05.3 Chronic cough (principal); R91.1 Solitary pulmonary nodule
CPT/HCPCS: 71250

== ENCOUNTER 2022-12-01 08:54 | Outpatient (CLI) | payer MEDICARE, OTHER, SELFPAY ==
--- NOTE | ~2022-12-01 | CT_ITS ---
EXAMINATION: CT diagnostic chest wo con DATE: 12/01/2022 09:13 INDICATION: Lung nodule follow-up. Past smoker. TECHNIQUE: Computed tomography (CT) of the chest was performed without intravenous contrast. Automate d exposure control and iterative reconstruction technique were employed. Exam dose: 261.32 mGy-cm to leroy exam DLP. COMPARISON: August 24, 2022 CDT high-resolution scan FINDINGS: Stable bilateral apical scarring and stable 10 mm right upper lobe nodule and scattered sma ller bilateral pulmonary nodules since August 24, 2022. No pulmonary infiltrate or consolidation or significant new or enlarging pulmonary mass lesion is not ed. Normal heart size. Coronary calcifications. Aortic and great vessel calcification. No thoracic aortic aneurysm. No hilar or mediastinal mass lesion or lymphadenopathy. No pericardial or pleural effusion. Small sliding hiatal hernia. Normal morphology of the adrenal glands. Diffuse idiopathic skeletal hyperostosis of the thoracolumbar spine. IMPRESSION: No significant change since 08/24/[address] chest follow-up is recommended Reviewed, dictated and finalized at [facility]. Reviewed, dictated and finalized at location []
== END 2022-12-01 08:55 | disposition home or self-care (01) ==
PROVIDERS: PCP Family Medicine; Visit Provider Family Medicine
DX: R91.1 Solitary pulmonary nodule (principal)
CPT/HCPCS: 71250

== ENCOUNTER 2023-01-09 14:26 | Emergency (ER) | payer MEDICARE, OTHER, SELFPAY ==
--- NOTE | ~2023-01-09 | XR_ITS ---
EXAMINATION: XR chest 2V DATE: 01/09/2023 15:08 INDICATION: Right lower chest pain. TECHNIQUE: Frontal and lateral views of the chest were obtained. COMPARISON: Chest 2 views 08/09/2021, chest CT 12/01/2022 FINDINGS: There is mild atelectasis at left lung base. No pleural effusion or pneumothorax. The heart size is normal. There is an electronic implant in left anterior chest wall. There is an interatrial closure device in the heart. IMPRESSION: 1. Mild atelectasis at left lung base. Reviewed, dictated and finalized at location [facility].
--- NOTE | 2023-01-09 14:30 | ED.GENADULT ---
HPI - General Adult General Chief complaint: Unspecified Stated complaint: right side pain Time Seen by Provider: 01/09/23 14:30 Source: patient Mode of arrival: ambulatory Limitations: no limitations History of Present Illness HPI narrative: Patient is an 82-year-old male who presents with right mid back pain for 1 week. Patient states he thought it was just a pulled muscle but the pain is significant enough now it is interfering with daily activities. Patient denies any pain with breathing or difficulty breathing. Patient denies any blood in urine, burning with urination, urgency or frequency. Patient does states he had a kidney stone 50-60 years ago. Patient also has right lung nodules with recent CT scan to assess size in November. Patient states movement increases pain. Related Data Home Medications Medication Instructions Recorded Confirmed finasteride 5 mg tablet 5 mg PO DAILY 11/13/20 12/21/22 tamsulosin 0.4 mg capsule 0.4 mg PO DAILY 06/24/21 12/21/22 aspirin 81 mg tablet 81 mg PO DAILY 08/09/21 12/21/22 Allergies Allergy/AdvReac Type Severity Reaction Status Date / Time pneumococcal vaccine Allergy Intermediate Hives Verified 01/09/23 14:29 Review of Systems Review of Systems: All systems reviewed & are unremarkable except as noted in HPI and below Constitutional: Constitutional: Denies body ache(s), Denies chills, Denies fatigue, Denies fever(s), Denies headache(s), Denies malaise and Denies weakness Eyes: Eyes: Denies blurry vision, Denies irritation and Denies loss of vision ENT: Denies otalgia, Denies headache(s), Denies nasal discharge, Denies sinus pain and Denies sore throat Cardiovascular: Cardiovascular: Denies chest pain, Denies irregular heart rhythm and Denies dyspnea Respiratory: Respiratory: Denies dyspnea Gastrointestinal: Gastrointestinal: Denies abdominal pain, Denies melena, Denies hematochezia, Denies diarrhea, Denies nausea and Denies vomiting Musculoskeletal: Musculoskeletal: Reports back pain, Denies myalgias and Denies arthralgias Integumentary/Breasts: Skin/Breast: Denies pruritus and Denies rash Neurologic: Denies headache(s), Denies loss of vision and Denies weakness Psychiatric: Psychiatric: Reports no additional psychiatric complaints Endocrine: Endocrine: Denies fatigue PMFSH Past Medical History Medical History Arthritis Arthritis of left hip BMI 31.0-31.9,adult BMI 33.0-33.9,adult BMI over 35 Cerebrovascular small vessel disease Chronic anticoagulation Chronic sinus infection Coughing Degenerative arthritis of right knee Diarrhea Dizziness Enlarged prostate GERD (gastroesophageal reflux disease) Hypertension Impingement of right shoulder Knee pain, right Light headedness Olecranon bursitis, left elbow Pulmonary nodule less than 1 cm in diameter with moderate to high risk for malignant neoplasm Right orbit trauma Screen for colon cancer Sprain of ulnar collateral ligament of metacarpophalangeal (MCP) joint of left thumb Stroke TIA 30 years ago Trochanteric bursitis, left hip Surgical History Surgical History History of hernia repair History of knee surgery History of prostate surgery UROLIFT procedure History of shoulder surgery Family History Family History Grandparent Cerebrovascular accident Mother Family history of diabetes mellitus in first degree relative Cerebrovascular accident CAD (coronary artery disease) Hx of heart artery stent Father Malignant neoplasm of prostate Social History Social History Social History: The patient is and lives with his . She is his durable power deputy attorney general for healthcare. The patient is a full code. The patient has 5 children. Patient stated that he quit smoking in 1978. He is
[2023-01-09 14:38] VITALS: BP 131/73; PULSE 53; RESP 16; TEMP 36.8; O2SAT 99
== END 2023-01-09 15:29 | disposition home or self-care (01) ==
PROVIDERS: Emergency Provider Nurse Practitioner Family; PCP Family Medicine
DX: S39.012A Strain of muscle, fascia and tendon of lower back, initial encounter (principal); X58.XXXA Exposure to other specified factors, initial encounter; M16.12 Unilateral primary osteoarthritis, left hip; K21.9 Gastro-esophageal reflux disease without esophagitis; I10 Essential (primary) hypertension; M17.11 Unilateral primary osteoarthritis, right knee; I67.9 Cerebrovascular disease, unspecified; Z86.73 Personal history of transient ischemic attack (TIA), and cerebral infarction without residual deficits; Z79.82 Long term (current) use of aspirin
CPT/HCPCS: 71046; 81003; 99213; G0463

== ENCOUNTER 2023-06-10 09:47 | Outpatient (CLI) | payer MEDICARE, OTHER, SELFPAY ==
--- NOTE | ~2023-06-10 | CT_ITS ---
CT Scan of the Chest without Contrast: Clinical Indication: Six-month follow-up exam, pulmonary nodule Technique: Contiguous sections were acquired throughout the chest without intravenous contrast. Dose reduction technique was used on this scan by utilizing automated exposure control and iterative recon struction technique. The dose-length product (DLP) was 301.08 mGy-cm. COMPARISON: 12/01/2022 Findings: There is no evidence of any significant mediastinal, hilar or axillary lymphadenopathy. There are ath erosclerotic calcifications of the aorta and coronary arteries. There is no evidence of pleural or pericardial effusion. Stable biapical scarring and biapical nodules. No new pulmonary abnormality seen. Images through the upper abdomen reveal no abnormalities. Impression: Stable biapical scarring and biapical pulmonary nodules. Reviewed, dictated and finalized at [facility]. [employer] Impression: Stable biapical scarring and biapical pulmonary nodules.
== END 2023-06-10 09:48 | disposition home or self-care (01) ==
LOC: ANHIMG 09:50
PROVIDERS: PCP Family Medicine; Visit Provider Nurse Practitioner Family
DX: R91.1 Solitary pulmonary nodule (principal); Z09 Encounter for follow-up examination after completed treatment for conditions other than malignant neoplasm
CPT/HCPCS: 71250

== ENCOUNTER 2024-01-04 14:16 | Outpatient (CLI) | payer MEDICARE, OTHER, SELFPAY ==
--- NOTE | ~2024-01-04 | CT_ITS ---
EXAMINATION:CT diagnostic chest wo con DATE: 01/04/2024 14:34 INDICATION: Solitary pulmonary nodule. TECHNIQUE: Computed tomography (CT) of the chest was performed without intravenous contrast. Automate d exposure control and iterative reconstruction technique were employed. The dose-length product (DLP ) was 293.17 mGy-cm. COMPARISON: Chest CT 06/10/2023, 08/24/22 FINDINGS: There is stable mild scarring at the lung apices. Calcified bilateral lung nodules are cons istent with old granulomatous disease. There is a stable 8 mm nodule in right upper lobe, stable from 08/24/22. There is a 5 mm nodule in left upper lobe, stable from 08/24/2022. There is minimal atelecta sis bilaterally. There are multiple nodules bilaterally measuring up to 3 mm. No pleural effusion. Th e heart size is normal. There are coronary artery calcifications. There is an interatrial closure dev ice. No pericardial effusion. There is an electronic implant in left anterior chest wall. There is di ffuse hepatic steatosis. There is mild thoracic spondylosis. IMPRESSION: 1. Lung nodules, likely benign. Reviewed, dictated and finalized at location [facility].
== END 2024-01-04 14:17 | disposition home or self-care (01) ==
LOC: ANHIMG 14:20
PROVIDERS: PCP Family Medicine; Visit Provider Family Medicine
DX: Z91.89 Other specified personal risk factors, not elsewhere classified (principal); R91.1 Solitary pulmonary nodule
CPT/HCPCS: 71250

== ENCOUNTER 2024-01-17 10:27 | Outpatient (CLI) | payer MEDICARE, OTHER, SELFPAY ==
[2024-01-17 10:49] LABS: Hematocrit 36.3 % (42.0-52.0); Hemoglobin 12.2 g/dL (14.0-18.0); Mean Corpuscular HGB Conc 33.6 g/dl (32-36); Mean Corpuscular Volume 89.4 fl (80-100); Mean Platelet Volume 11.1 fl (7.4-10.4); Platelet Count Result 197 k/mm3 (150-375); Red Blood Count 4.06 M/mm3 (4.6-6.20); Red Cell Distribution Width 15.4 % (11.5-14.5); White Blood Count 7.9 K/mm3 (4.5-10.0)
[2024-01-17 11:02] LABS: Alanine Aminotransferase 23 U/L (6-50); Albumin Level 4.2 g/dL (3.5-5.1); Alkaline Phosphatase 52 U/L (38-126); Anion Gap 7 mmol/L (4-12); Aspartate Amino Transferase 23 U/L (17-59); Bilirubin,Total 0.7 mg/dL (0.2-1.3); Blood Urea Nitrogen 23 mg/dL (9-20); Calcium 8.9 mg/dL (8.4-10.2); Carbon Dioxide 26 mmol/L (22-30); Chloride 103 mmol/L (98-107); Cholesterol 105 mg/dL (0-200); Estimated Glomerular Filt Rate 58; Glucose 108 mg/dL (65-110); HDL Direct 41 mg/dL; Potassium 4.8 mmol/L (3.4-5.0); Sodium 136 mmol/L (137-145); Triglycerides 92 mg/dL (<150)
[2024-01-17 11:13] LABS: LDL Cholesterol Direct 54 mg/dL
[2024-01-17 11:30] LABS: Prostate Specific Antigen 2.1 ng/mL (< OR = 4.0)
== END 2024-01-17 10:28 | disposition home or self-care (01) ==
PROVIDERS: PCP Family Medicine; Visit Provider Family Medicine
DX: Z12.5 Encounter for screening for malignant neoplasm of prostate (principal); E78.5 Hyperlipidemia, unspecified; N40.0 Benign prostatic hyperplasia without lower urinary tract symptoms; I10 Essential (primary) hypertension; K21.9 Gastro-esophageal reflux disease without esophagitis; Z13.220 Encounter for screening for lipoid disorders
CPT/HCPCS: 36415; 80053; 80061; 82248; 84153; 84443; 85027

== ENCOUNTER 2024-02-22 10:00 | Outpatient (CLI) | payer MEDICARE, OTHER, SELFPAY ==
--- NOTE | 2024-03-21 08:01 | WPDSLEEPSTUD ---
Sleep Study Date of Study: 02/22/24 Ordering Provider: Frank Frazier MD Interpreting Physician: Sully Long DO Sleep Study Type: Split Polysomnogram Height: 1.78 m Weight: 108.862 kg Body Mass Index: 34.4 Neck Circumference (inches): 18 [place]: 14 Reason for Sleep Study Daytime hypersomnia Sleep History The patient is an 83-year-old male that had a sleep study ordered by his primary care physician for evaluation of sleep apnea. The patient rarely awakens from sleep short of breath. He occasionally awakens at night with coughing. He frequently snores and it is occasionally loud enough others complain. He frequently has trouble sleeping when he has a cold. He rarely wakes up gasping for air throughout the night. He rarely has breathing problems at night observed by himself or others. He occasionally sweats excessively at night. He rarely has heart palpitations or irregular heartbeats during the night. He frequently falls asleep during the day but never while driving. He rarely experiences loss of muscle tone when extremely emotional. He denies having trouble at school or work due to sleepiness. He denies sleep paralysis. He rarely experiences vivid dreamlike scenes upon awakening or falling asleep. He denies feeling afraid of going to sleep. He occasionally has nightmares but rarely remembers his dreams. He occasionally has thoughts racing through his mind. He rarely feels sad or depressed. He frequently has anxiety. He occasionally has muscular tension. He rarely notices parts of his body jerk. He occasionally kicks during the night. He occasionally experiences crawling and aching feelings in his legs occasionally has leg pain during the night. He denies grinding his teeth during sleep and denies awakening with morning jaw pain. He is occasionally bothered by pain during the day but rarely awakened by pain during the night. He rarely wakes up feeling stiff in morning. He rarely wakes up with sore or achy muscles. He occasionally wakes up with pain in the neck, spine or other joints. He goes to bed at 10:00 p.m. on both weekdays and weekends. He is able to fall asleep immediately. He wakes up 4-6 times throughout the night to urinate and is able to fall back asleep within a few minutes. He wakes up between 8:29 a.m. on both weekdays and weekends. He typically gets 7 hours of sleep per night. He stays in bed for a few minutes after waking up in the morning. He currently lives with his . He denies consuming any caffeinated beverages within 2 hours of bedtime. He denies engaging in physical exercise before bedtime. He will watch television before falling asleep. He denies taking naps in the afternoon and the evening. He consumes 2 cups of caffeinated beverage per day. He quit smoking cigarettes 35 years ago. He rarely consumes alcoholic beverages. He denies recreational drug use. 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 BMI 31.0-31.9,adult BMI 33.0-33.9,adult BMI over 35 Cerebrovascular accident (CVA) with right hemiparesis Cerebrovascular small vessel disease Chronic anticoagulation Chronic sinus infection Coughing Degenerative arthritis of right knee Diarrhea Dizziness Enlarged prostate GERD (gastroesophageal reflux disease) Hyperlipidemia Hypertension Impingement of right shoulder Knee pain, right Light headedness Olecranon bursitis, left elbow Pulmonary nodule less than 1 cm in diameter with moderate to high risk for malignant neoplasm Right orbit trauma Screen for colon cancer Sprain of ulnar collateral ligament of metacarpophalangeal (MCP) joint of left thumb Stroke TIA 30 years ago Trochanteric bursitis, left hip Surgical History Surgical History His
[2024-03-21 08:23] VITALS: BMI 34.4
== END 2024-02-23 08:07 | disposition home or self-care (01) ==
LOC: ANHCSM 10:00
PROVIDERS: PCP Family Medicine; Visit Provider Family Medicine
DX: G47.33 Obstructive sleep apnea (adult) (pediatric) (principal); G47.10 Hypersomnia, unspecified; I10 Essential (primary) hypertension; Z86.73 Personal history of transient ischemic attack (TIA), and cerebral infarction without residual deficits
CPT/HCPCS: 95811

== ENCOUNTER 2024-05-30 17:38 | Emergency (ER) | payer MEDICARE, OTHER, SELFPAY ==
--- NOTE | ~2024-05-30 | XR_ITS ---
XR ribs LT 2V w CXR 2V Ordering provider: Carolina Cedeño History: . fall, pain to L ribs . Comparison: None. FINDINGS: BONES: No acute rib fracture. Degenerative the spine. Chronic loss of volume is seen in multiple vert ebrae in the lower thoracic area.If suspicious MRI is advised. MEDIASTINUM: The cardiac silhouette is not enlarged. The right is projected over the left hemithorax. LUNGS: No infiltrates, effusions or pneumothorax. OTHER: No free air under the diaphragm. IMPRESSION: 1. No acute osseous abnormality left ribs and chest. 2. No acute cardiopulmonary findings. Reviewed, dictated and finalized at location A. TESTER
--- NOTE | ~2024-05-30 | XR_ITS ---
XR hip LT 2V w AP pelvis Ordering provider: Carolina Cedeño History: . fall, pain L hip/thigh . Comparison: None. FINDINGS: BONES: No acute fracture or dislocation. HIP JOINT SPACES: Normal. SACROILIAC JOINT SPACES/LUMBAR SPINE: The sacroiliac joint spaces are normal. Mild degenerative bro es of the visualized lower lumbar spine. PUBIC SYMPHYSIS: Normal. SOFT TISSUES: Normal. IMPRESSION: No acute osseous abnormality pelvis and left hip. Reviewed, dictated and finalized at location A. OR ORE CONTROLLER
--- NOTE | ~2024-05-30 | CT_ITS ---
EXAMINATION: CT brain wo con DATE: 05/30/2024 19:50 INDICATION: Head injury. TECHNIQUE: Computed tomography (CT) of the head was performed without intravenous contrast. The mA wa s adjusted according to patient size. Iterative reconstruction technique was employed. The dose-lengt h product was 681.00 mGy-cm. COMPARISON: Head CT 10/04/2020, brain MRI 09/29/2020 FINDINGS: There are scattered areas of low attenuation in the cerebral white matter. There is no intr acranial hemorrhage, acute infarction, or abnormal intracranial mass lesion. There is an old lacunar infarct in right thalamus. The ventricles are normal in size. There is mild mucosal thickening in the paranasal sinuses. There are likely changes of ocular lens replacement surgeries. The mastoid air ce lls are normal. There is cerumen in the external auditory canals. IMPRESSION: 1. Old lacunar infarct in the right thalamus. 2. Stable moderate nonspecific cerebral white matter disease, which likely represents chronic small v essel ischemic disease. Reviewed, dictated and finalized at location A. STANT OFFICE MANAGER IMPRESSION: 1. Old lacunar infarct in the right thalamus. 2. Stable moderate nonspecific cerebral white matter disease, which likely repr esents chronic small vessel ischemic disease.
--- NOTE | ~2024-05-30 | XR_ITS ---
XR shoulder RT min 2V Ordering provider: Carolina Cedeño History: . fall, pain . Comparison: None. FINDINGS: BONES: No acute fracture or dislocation. Osteophytes seen in the humeral head inferiorly. JOINT SPACES: The acromioclavicular joint is normal. The glenohumeral joint is narrowed. SOFT TISSUES: Normal. IMPRESSION: No acute osseous abnormality right shoulder. Mild to moderate osteoarthritic changes of the glenohumeral joint. Reviewed, dictated and finalized at location A. STRIAN TRAINER
--- NOTE | ~2024-05-30 | CT_ITS ---
EXAMINATION: CT cervical spine wo con DATE: 05/30/2024 19:50 INDICATION: Head injury. TECHNIQUE: Computed tomography (CT) of the cervical spine was performed without intravenous contrast. Automated exposure control and iterative reconstruction technique were employed. The dose-length pro duct was 440.96 mGy-cm. COMPARISON: Chest CT 01/04/2024 FINDINGS: There is stable scarring at the lung apices. Calcified left lung nodules are consistent wit h old granulomatous disease. There is 5 degrees levocurvature of cervical spine. There is 2 mm jaclyn listhesis of C4 on C5. There is mild kyphosis of lower cervical spine. Vertebral body heights are nor mal. There is mildly decreased disc height at C4-C5 and moderately decreased disc height at C5-C6 and C6-C7. The following disc levels are specifically discussed: C2-C3: There is mild bilateral uncovertebral joint osteoarthritis. There is severe right and moderate left facet joint osteoarthritis. There is mild bilateral neural foraminal stenosis. There is no cent ral canal stenosis. C3-C4: There is no uncovertebral joint osteoarthritis. There is severe right facet joint osteoarthrit is. There is mild right neural foraminal stenosis. There is mild central canal stenosis. C4-C5: There is mild right and moderate left uncovertebral joint osteoarthritis. There is severe bila teral facet joint osteoarthritis. There is mild right and moderate left neural foraminal stenosis. Th ere is mild central canal stenosis. C5-C6: There is moderate bilateral uncovertebral joint osteoarthritis. There is severe bilateral face t joint osteoarthritis. There is mild bilateral neural foraminal stenosis. There is mild central lavell l stenosis. C6-C7: There is mild bilateral uncovertebral joint osteoarthritis. There is severe bilateral facet regine int osteoarthritis. There is mild bilateral neural foraminal stenosis. There is mild central canal st enosis. C7-T1: There is no uncovertebral joint osteoarthritis. There is severe bilateral facet joint osteoart hritis. There is mild bilateral neural foraminal stenosis. There is no central canal stenosis. IMPRESSION: 1. No fracture. 2. Moderate cervical spondylosis. Reviewed, dictated and finalized at location A. SURVEYOR
[2024-05-30 18:19] VITALS: BP 148/80; PULSE 65; RESP 18; TEMP 36.5; O2SAT 97
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
[2024-05-30 21:43] VITALS: BP 137/89; PULSE 73; RESP 16; TEMP 36.3; O2SAT 98
== END 2024-05-30 21:45 | disposition home or self-care (01) ==
PROVIDERS: Emergency Provider Physician Assistant; PCP Family Medicine
DX: S09.90XA Unspecified injury of head, initial encounter (principal); S20.212A Contusion of left front wall of thorax, initial encounter; I69.954 Hemiplegia and hemiparesis following unspecified cerebrovascular disease affecting left non-dominant side; I67.89 Other cerebrovascular disease; I10 Essential (primary) hypertension; E78.5 Hyperlipidemia, unspecified; M16.12 Unilateral primary osteoarthritis, left hip; M19.011 Primary osteoarthritis, right shoulder; J32.9 Chronic sinusitis, unspecified; K21.9 Gastro-esophageal reflux disease without esophagitis; Z87.891 Personal history of nicotine dependence; Z79.82 Long term (current) use of aspirin; Z79.899 Other long term (current) drug therapy; R90.82 White matter disease, unspecified; M47.812 Spondylosis without myelopathy or radiculopathy, cervical region; W18.09XA Striking against other object with subsequent fall, initial encounter
CPT/HCPCS: 70450; 71046; 71100; 72125; 73030; 73502; 99284

== ENCOUNTER 2024-10-27 10:21 | Emergency (ER) | payer MEDICARE, OTHER, SELFPAY ==
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
[2024-10-27 10:33] VITALS: BP 114/57; PULSE 51; RESP 16; TEMP 36.2; O2SAT 96
== END 2024-10-27 10:42 | disposition short-term general hospital (02) ==
PROVIDERS: Emergency Provider Nurse Practitioner Family; PCP Family Medicine
DX: R10.32 Left lower quadrant pain (principal); Z87.891 Personal history of nicotine dependence; I10 Essential (primary) hypertension; N40.0 Benign prostatic hyperplasia without lower urinary tract symptoms; I67.9 Cerebrovascular disease, unspecified; K21.9 Gastro-esophageal reflux disease without esophagitis; E78.5 Hyperlipidemia, unspecified; I69.351 Hemiplegia and hemiparesis following cerebral infarction affecting right dominant side; M17.0 Bilateral primary osteoarthritis of knee; M19.011 Primary osteoarthritis, right shoulder
CPT/HCPCS: 99212; G0463

== ENCOUNTER 2024-10-27 11:00 | Emergency (ER) | payer MEDICARE, OTHER, SELFPAY ==
--- NOTE | ~2024-10-27 | CT_ITS ---
EXAMINATION: CT abdomen pelvis w con DATE: 10/27/2024 14:05 INDICATION: Left abdominal pain TECHNIQUE: Computed tomography (CT) of the abdomen and pelvis was performed with 100 mL Omnipaque-350 intravenous contrast. Automated exposure control and iterative reconstruction technique were employe d. The dose-length product was 781.52 mGy-cm. COMPARISON: 12/16/2003, images only. FINDINGS: Lower thorax: Minimal bibasilar scar/atelectasis. Coronary artery and aortic valve calcification. Liver: Simple left lobe cyst. Biliary/Gallbladder: Gallbladder is normal. No bile duct dilation. Pancreas: Mild fatty atrophy. Spleen: Normal. Adrenals:No mass. Kidneys: No suspicious mass or obstructing stone. Mild bilateral ureterectasis, without significant i nflammatory change. Simple left upper pole cyst GI tract: Small hiatal hernia. No small or large bowel dilation. Normal appendix. Diverticulosis with out diverticulitis. Mesentery/Peritoneum: No ascites, mass, or free air. Retroperitoneum: No mass. Pelvis: Distended urinary bladder, without significant wall thickening or inflammatory change. Marked prostatomegaly. Prostate seeds.. Soft Tissues: Soft tissues and body wall unremarkable. Bones: No acute osseous finding. Mild chronic height loss in the lower thoracic spine. Grade 1 anter olisthesis at L5-S1 secondary to bilateral L5 pars defects. IMPRESSION: Marked prostatomegaly with urinary bladder distention and bilateral ureterectasis, may reflect a degr ee of urinary retention and/or ascending infection. Reviewed, dictated and finalized at location K. IMPRESSION: Marked prostatomegaly with urinary bladder distention and bilateral ureterectas is, may reflect a degree of urinary retention and/or ascending infection.
[2024-10-27 11:08] VITALS: BP 121/72; PULSE 65; RESP 22; O2SAT 96
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
[2024-10-27 11:57] VITALS: BP 121/72; PULSE 67; RESP 16; TEMP 36.7; O2SAT 96
[2024-10-27 12:01] VITALS: BP 123/75; PULSE 52; RESP 16; TEMP 36.6; O2SAT 98
[2024-10-27 12:02] LABS: Basophils Absolute Auto 0.1 K/mm3 (0.0-0.1); Eosinophils Absolute Auto 0.3 K/mm3 (0-0.3); Eosinophils Percent Auto 2.9 % (0-4.4); Hematocrit 38.6 % (42.0-52.0); Hemoglobin 12.7 g/dL (14.0-18.0); Immature Granulocyte Absolute 0.03 K/mm3 (0.00-0.031); Immature Granulocyte Percent A 0.3 % (0-0.5); Lymphocytes Absolute Auto 1.86 K/mm3 (0.9-3.2); Lymphocytes Percent Auto 19.6 % (18.3-44.2); Mean Corpuscular HGB Conc 32.9 g/dl (32-36); Mean Corpuscular Hemoglobin 28.9 pg (26-34); Mean Corpuscular Volume 87.9 fl (80-100); Mean Platelet Volume 10.6 fl (7.4-10.4); Monocytes Absolute Auto 0.9 K/mm3 (0.1-0.6); Monocytes Percent Auto 9.7 % (2.6-8.5); Neutrophils Absolute Auto 6.3 K/mm3 (1.3-6.7); Neutrophils Percent Auto 66.5 % (45.5-73.1); Platelet Count Result 218 k/mm3 (150-375); Red Blood Count 4.39 M/mm3 (4.6-6.20); Red Cell Distribution Width 15.6 % (11.5-14.5); White Blood Count 9.5 K/mm3 (4.5-10.0)
[2024-10-27] MEDS: SODIUM CHLORIDE 0.9% IV 1,000 ML 999 ML IV CONT (12:06)
[2024-10-27 12:12] LABS: Alanine Aminotransferase 33 U/L (6-50); Albumin Level 4.7 g/dL (3.5-5.1); Alkaline Phosphatase 64 U/L (38-126); Anion Gap 10 mmol/L (4-12); Aspartate Amino Transferase 27 U/L (17-59); Bilirubin,Total 0.8 mg/dL (0.2-1.3); Blood Urea Nitrogen 21 mg/dL (9-20); Calcium 9.4 mg/dL (8.4-10.2); Carbon Dioxide 22 mmol/L (22-30); Chloride 102 mmol/L (98-107); Estimated Glomerular Filt Rate 54; Glucose 97 mg/dL (65-110); Lipase 99 U/L (23-300); Potassium 4.9 mmol/L (3.4-5.0); Sodium 134 mmol/L (137-145)
[2024-10-27 12:50] LABS: Add Urine Microscopic? NO; Appearance Urine Clear (Clear); Bilirubin Urine Negative (Negative); Blood Urine Negative (Negative); Color Urine Yellow (Yellow); Glucose Urine UA Negative (Negative); Ketones Urine Negative (Negative); Leukocyte Esterase Ur Negative LEU/UL (Negative); Nitrate Urine Negative (Negative); Protein Urine Negative (Negative); pH Urine 6.5 (5.0-9.0)
[2024-10-27 13:00] VITALS: BP 120/68; PULSE 64; RESP 16; TEMP 36.6; O2SAT 98
[2024-10-27 14:00] VITALS: BP 122/70; PULSE 64; RESP 16; TEMP 36.6; O2SAT 98
[2024-10-27 15:03] VITALS: BP 122/70; PULSE 68; RESP 16; TEMP 36.6; O2SAT 100
--- OUTSIDE RECORDS SUMMARY | 2024-10-27 16:23 | XMS_ITS | Continuity of Care Document ---
[facility] Organization [facility] [address] [place] [address] Phone Care Team Providers Care Mule Tender Name Role Phone Umaña OD, Juan C Unavailable Unavailable Procedures Procedure Date Contact Lens Hydrophilic, Spherical Medical Tax Contact Lens Hydrophilic, Spherical Medical Tax Eye Exam & Treatment Refraction Contact Lens Hydrophilic, Spherical [employer] Contact Lens Hydrophilic, Spherical [employer] CL Replacement - [place] Disp W/BW Soft [employer] CL Replacement - [place] Disp W/BW Soft [employer] CL Replacement - [place] Disp W/BW Soft [employer] Eye Exam & Treatment Refraction CL Replacement - [employer] Disp W/BW Soft [employer] CL Replacement - [place] Disp W/BW Soft [employer] CL Replacement - [place] Disp W/BW Soft [employer] CL Replacement - [employer] Disp W/BW Soft [employer] No Charge Contact Lens Check CL Replacement - [employer] Disp W/BW Soft Tax - Medical No Charge Contact Lens Check Eye Exam, New Patient Refraction Advance Directives Directive Yes / No Effective Date File Name No Information Encounters Encounter Description Practice Location Reason(s) For Visit Diagnoses Date Provider Providers Copied on Encounter [facility], [address] [place] [address] [address], [place], [place], [id number], tel:[phone] [facility] No Information 5-201 0 Umaña OD Juan C. [address] , [address], [place], [place], [facility], . tel:[phone] [facility], [address] [place] [address] [address], [place], [place], [id number], tel:[phone] [facility] No Information 1-201 0 Umaña OD Juan C. [address], [place], [place], [facility], [place]. tel:[phone] Referring Provider: Juan C Zavala, [address], [place], [place], [facility]. tel:[phone] [facility], [address] [place] [address] [address], [place], [place], [id number], tel:[phone] [facility] No Information Fe-0 4-201 0 Umaña OD Juan C. [address], [place], [place], [facility], [place]. tel:[phone] [facility], [address] [place] [address] [address], [place], [place], [id number], [place] tel:[phone] [facility] No Information Feb-0 4-201 0 Umaña OD Juan C. [address], [place], [place], [facility], . tel:[phone] Referring Provider: Juan C Umaña OD A, [address], [place], [place], [facility]. tel:[phone] [facility], [address], [place], [place], [id number], tel:[phone] [facility] No Information Nov-0 9-200 9 Umaña OD Juan C. [address] , [address], [place], [place], [facility], . tel:[phone] [facility], [address], [place], [place], [id number], [place] tel:[phone] [facility] No Information Aug-0 3-200 9 Umaña OD Juan C. [address] , [address], [place], [facility], [place]. tel:[phone] [facility], [address] [place] [address] [address], [place], [place], [id number], tel:[phone] [facility] No Information May-0 4-200 9 Umaña OD Juan C. [address] , [address], [place], [facility], [place]. tel:[phone] [facility], [address] [place] [address] [address], [place], [place], [address], tel:[phone] [facility] No Information Jul-2 7-200 9 Umaña OD Juan C. [address] , [address], [place], [facility], [place]. tel:[phone] [facility], [address] [place] [address] [address], [place], [place], [address], [place] tel:[phone] [facility] No Information Waldo-2 9-200 9 Umaña OD Juan C. [address] , [address], [place], [facility], . tel:[phone] [facility], [address] [place] [address] [address], [place], [place], [id number], [place] tel:[phone] [facility] No Information Dec-0 3-200 8 Umaña OD Juan C. [address] , [address], [place], [facility], [place]. tel:[phone] [facility], [address], [place], [place], [address], [place] tel:[phone] [facility] No Information Aug-2 5-200 8 Umaña OD Juan C. [address] , [address], [place], [facility], [place]. tel:[phone] [facility], [address] [place] [address] [address], [place], [place], [id number], [place] tel:[phone] [facility] No Information Santy-2 0-200 8 Umaña OD Juan C. [address] , [address], [place], [facility], [place]. tel:[phone] [facility], [address] [place] [address] [address], [place], [place], [address], [place] tel:[phone] [facility] No Information Apr-0 4-200 8 Umaña OD Juan C. [address] , [address], [place], [facility], [place]. tel:[phone] [facility], [address] [place] [address] [address], [place], [place], [address], [place] tel:[phone] [facility] No Information Waldo-2 4-200 8 Umaña OD Juan C. [address] , [address], [place], [facility], [place]. tel:[phone] [facility], [address], [place], [place], [id number], [place] tel:[phone] [facility] No Information Waldo-1 7-200 8 Umaña OD Juan C. [address] , [address], [place], [address], [place]. tel:[phone] [facility], [address], [place], [place], [id number], [place] tel:[phone] [facility] No Information 0-200 8 Umaña OD Juan C. [address] , [address], [place], [address], [place]. tel:[phone] Family History Family Member Type Diagnosis Age At Onset No Information Payers Payer name Insurance type Covered republican ID Authoriza tion(s) No Information Social History [...]
--- OUTSIDE RECORDS SUMMARY | 2024-10-27 16:23 | XMS_ITS | Clinical Summary ---
Author Organization [facility] [place] [facility] Address [address] [place] [phone] Care Team Providers Care Clinical Geneticist Name Role Phone Frank Frazier MD Primary Care Provider [phone] Allergies No known active allergies Medications omeprazole (PriLOSEC) 40 mg capsule Take 1 capsule (40 mg total) by mouth daily 0 Active finasteride (PROSCAR) 5 mg tablet Take 1 tablet (5 mg total) by mouth daily 0 Active NIFEdipine CC 30 mg 24 hr tablet Take 1 tablet (30 mg total) by mouth 2 (two) times a day 1 Active atorvastatin (LIPITOR) 40 mg tablet Take 1 tablet (40 mg total) by mouth daily 1 Active potassium 99 mg tablet Take by mouth Active magnesium gluconate (MAGONATE) 27.5 mg magne- sium (500 mg) tabletIndicatio ns:hypomagnesem ia Take 1 tablet (500 mg total) by mouth daily Active fish oil-dha-epa 1,200-144-216 mg capsule Take by mouth Activ e cholecalciferol (VITAMIN D-3) 00067 unit capsule Take 1 capsule (10,000 Units total) by mouth 2 (two) times a day Active vit C-vit U-lyjlzfpa-zysq 191 15-15-10 mg-unit-mcg capsule Take by mouth Active glucosamine/cho ndr todd A sod (OSTEO BI-FLEX ORAL) Take by mouth Active vitamin b complex tablet Take 1 tablet by mouth daily Active aspirin 81 mg chewable tablet Take 1 tablet (81 mg total) by mouth daily 90 tablet 3 1 Active tamsulosin (FLOMAX) 0.4 mg extended release capsule Take 1 capsule (0.4 mg total) by mouth nightly 3 Active clobetasoL (TEMOVATE) 0.05 % ointment APPLY OINTMENT TOPICALLY TWICE DAILY TO RASH ON HANDS FOR 4 WEEKS FOR FLARES, THEN USE TWICE A WEEK FOR MAINTENANCE. DO NOT USE ON FACE. 3 Active furosemide (LASIX) 20 mg tabletIndicatio ns:Bilateral lower extremity edema Take 1 tablet (20 mg total) by mouth daily as needed (swelling) 30 tablet 1 5 Active losartan (COZAAR) 100 mg tablet Take 1 tablet (100 mg total) by mouth daily 90 tablet 3 5 Active Active Problems Problem Noted Date Diagnosed Date Bilateral lower extremity edema 09/05/2024 Mixed hyperlipidemia 05/25/2022 Nonrheumatic aortic valve stenosis 05/25/2022 Bradycardia 05/25/2022 CHAPA (dyspnea on exertion) 05/25/2022 S/P device closure of atrial septal defect 05/13 Visit for wound check 01/20/2021 Status post placement of implantable loop record er 01/19/2021 Overview (01/19/2021): [employer] Biomonitor III-Loop Recorder. DOI 01/14/2021. [employer] remote home monitoring. 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) 12/18/2020 Nonintractable headache 12/18/2020 Fatigue 12/18/2020 Migraine with aura and witho ut status migrainosus, not intractable 12/18/2020 Essential hypertension 11/06/2020 Recurrent strokes (CMS/HCC) 11/06/2020 Paroxysmal SVT (supraventricular tachycardia) (C MS/HCC) 11/06/2020 Palpitations 11/06/2020 PFO (patent foramen ovale) 11/06/2020 Resolved Problems Problem Noted Date Diagnosed Date Resolved Date Cerebrovascular accident (CVA) 12/18/2020 07/22/2023 Chronic anticoagulation 11/06/202006/28 Encounters Date Type Department Care Team Description 10/22/2024 7:00 AM CDT Ancillary Procedure [facility] Cardiology [address] [place] [address] [place], [place] [address] [place] [phone] Status post placement of implantable loop recorder (Primary Dx); Paroxysmal SVT (supraventricular tachycardia); Bradycardia; Cryptogenic stroke (HCC) 09/06/2024 7:30 AM CDT Ancillary Procedure [facility] Cardiology [address] [place] [address] [place] [address] [place] [phone] Status post placement of implantable loop recorder (Primary Dx); Paroxysmal SVT (supraventricular tachycardia); Bradycardia; Cryptogenic stroke (HCC) 09/05/2024 1:30 PM CDT Office Visit [facility]iology [address] [facility] [address] [place] [phone] Russ Pitts MD Recurrent strokes (CMS/HCC) (HCC) (Primary Dx); Essential hypertension; Mixed hyperlipidemia; Paroxysmal SVT (supraventricular tachycardia) (CMS/HCC) (HCC); Bilateral lower extremity edema from Last 3 Months Surgical History Surgery Date Site/Laterality Comments HERNIA REPAIR KNEE SURGERY SHOULDER SURGERY PROSTATE SURGERY FRACTURE SURGERY About 40 years ago CATARACT EXTRACTION Medical History Medical History Date Comments Gastric reflux Hypertension Migraines Stroke (HCC) Acute CVA (cerebrovascular accident) (HCC) Cerebral infarction (HCC) PSVT (paroxysmal supraventricular tachycardia) PFO (patent foramen ovale) Supraventricular tachycardia Arthritis Enlarged prostate GERD (gastroesophageal reflux disease) Covid Cataract 2016 Sleep apnea 2023 Benign prostatic hyperplasia Unknown Family History Medical History Relation Name Comments Cancer Father Maurice Arthritis Mother Libby Diabetes Mother Libby Heart disease Mother Libby Hypertension Mother Libby Stroke Mother Libby Cancer Sister 1 Denisse Cancer Sister 2 Bethany Relation Name Status Comments Father Maurice Mother Libby Sister 1 Denisse Alive Sister 2 Bethany Alive Social History Tobacco Use Types Packs/Day Years Used Date Smoking Tobacco: Former Cigarettes 3 15 Q uit: 1979 Smokeless Tobacco: Never Tobacco Cessation:Counseling Given: Not Answered Alcohol Use Standard Drinks/Week Comments Yes 0 (1 standard drink = 0.6 oz pur e alcohol) socially AUDIT-C Answer Date Recorded Q1: How often do you have a drink containing alc ohol? Monthly or less 01/30/2021 Q2: How many drinks containi ng alcohol do you have on a typical day when you are drinking? 1 or 2 01/30/2021 Q3: How often do you have si x or more drinks on one occasion? Never 01/30/2021 Sex and Gender Information Value Date Recorded Sex Assigned at Not on file Legal Sex Male 8:56 AM CDT Gender Identity Male 04/14/2021 4:26 PM CDT Sexual Orientation Straight 04/14/2021 4: 26 PM CDT Occupation Industry Job Start Date Job End Date Not on file Not on file Not on file Not on file Obstetrics History Last Filed Vital Signs Vital Sign Reading Time Taken Comments Blood Pressure 120/64 09/05/2024 1:24 PM CDT Pulse 54 09/05/2024 1:24 PM CDT Temperature 36.4 C (97.6 F) 04/15/2021 10:11 AM CDT Respiratory Rate 20 01/30/2021 2:20 PM CDT Oxygen Saturation 96% 09/05/2024 1:24 PM CDT Inhaled Oxygen Concentration - - Weight 111.6 kg (246 lb) 09/05/2024 1:24 PM CDT Height 177.8 cm (5' 10 ) 09/05/2024 1:24 PM CDT Body Mass Index 35.3 09/05/2024 1:24 PM CDT Plan of Treatment Health Maintenance Due Date Last Done Comments Depression Screening 1942 DTaP/Tdap/Td Vaccine (1 - Tdap) 1953 Hepatitis B Screening 1960 Pneumococcal vaccine 65+ (1 of 1 - PCV) 1992 Zoster Vaccine (1 of 2) 1992 Well Visit 65+ 2007 Fall Risk Assessment 01/30/2022 01/30/2021 Influenza Vaccine (Season Ended) 2025 06/08/20 13 Medical Devices Implanted Type Area Parcel Post Officer Device Identifier Shelf Expiration Date Model / Serial / Lot Implantable Loop Recorder Implantable Loop Recorder Bilatera l: Chest Wall [employer] 9-Pfo-025 Amplatzer 25mm 18mm 2 Disk Self Expandable Delivery System Patent - [id number] - [id number] Implanted:Qty: 1 on 01/30/2021 by Thien Pickering MD PhD at [facility] Septal Defect Closure Device [employer] 06/26/2025 9-PFO-02 5 / [id number] Procedures Procedure Name Priority Date/Time Associated Diagnosis Comments DEVICE CHECK - REMOTE Routine 10/22/2024 9:40 AM CDT Paroxysmal SVT (supraventricular tachycardia) Bradycardia DEVICE CHECK - REMOTE Routine 09/06/2024 7:47 AM CDT Paroxysmal SVT (supraventricular tachycardia) Bradycardia from Last 3 Months Results * DEVICE CHECK - REMOTE (10/22/2024 9:40 AM CDT) Anatomical Region Laterality Modality Other Narrative 10/25/2024 2:30 PM CDT [employer] Biomonitor III-Loop Recorder. Dx; Cryptogenic Stroke, Parox SVT, Palpitations. DOI 01/14/2021. [employer] remote home monitoring. Routine ILR remote. Normal device function. Battery function-Ok. Presenting rhythm- VS, 52-58 bpm. Counters; No HVR episodes, Asystole, or Patient Triggered episodes noted since implant 01/14/2021. 4 Poncho episodes noted, egm's SB with PAC's and PVC's. 1292 Total AF episodes recorded since 01/15/21, egm's SA/SB/SR with PAC's, PVC's, and r-wave variability. 2800 ectopic beats noted. 3555 since implant 01/15/2021. Average HR 51 bpm. Medications; ASA 81 mg, Cozaar Lipitor. See scanned report. [employer] remote f/u 12/03/2024. Fiona Shore RN us David Tyson MD [facility] PROC EDURES Final Result * DEVICE CHECK - REMOTE (09/06/2024 7:47 AM CDT) Anatomical Region Laterality Modality Other Narrative 09/06/2024 1:18 PM CDT [employer] Biomonitor III-Loop Recorder. Dx; Cryptogenic Stroke, Parox SVT, Palpitations. DOI 01/14/2021. [employer] remote home monitoring. Routine ILR remote. Normal device function. Battery function-Ok. Presenting rhythm- VS, 58-70 bpm and PAC's. Counters; No HVR episodes, Bradycardia, Asystole, or Patient Triggered episodes noted since implant 01/14/2021. 1221 Total AF episodes recorded since 01/15/21, egm's SA/SB/SR with PAC's, PVC's, and r-wave variability. 2786 ectopic beats noted. 3553 since implant 01/15/2021. Average HR 57 bpm. Medications; ASA 81 mg, Cozaar Lipitor. See scanned report. [employer] remote f/u 10/22/2024. Fiona Shore RN David Tyson MD CV CARDIAC SERVICES PROC EDURES Final Result from Last 3 Months Insurance MEDICARE [facility] MEDICARE [facility] MEDICARE [facility] Advance Directives For more information, please contact: [phone] Documents on File Type Date Recorded Patient Software Designer Expl anation Power of Scheduling Manager 05/11/2021 8:12 AM Pt did not bring. * Full Code (Latest Code Status on File) Date Activated Date Inactivated Comments 01/30/2021 9:02 AM 01/30/2021 7:28 PM Care Teams Clinical Geneticist Relationship Specialty Start Date End Date Frank Frazier MD PCP - General Family Medicine 03/27/20
--- OUTSIDE RECORDS SUMMARY | 2024-10-27 16:23 | XMS_ITS | Referral Summary ---
Author Organization [facility] [place] [facility] Address [address] [place] [phone] Care Team Providers Care Asp Net Programmer Name Role Phone Frank Frazier MD Primary Care Provider Encounters Date Type Department Care Team Description 10/22/2024 7:00 AM CDT Ancillary Procedure [facility] Cardiology [address] [place] [address] [place] [phone] Status post placement of implantable loop recorder (Primary Dx); Paroxysmal SVT (supraventricular tachycardia); Bradycardia; Cryptogenic stroke (HCC) 09/06/2024 7:30 AM CDT Ancillary Procedure [facility] Cardiology [address] [place] [address] [place] [phone] Status post placement of implantable loop recorder (Primary Dx); Paroxysmal SVT (supraventricular tachycardia); Bradycardia; Cryptogenic stroke (HCC) 09/05/2024 1:30 PM CDT Office Visit [facility] Cardiology [address] [place] [phone] Russ Pitts MD Recurrent strokes (CMS/HCC) (HCC) (Primary Dx); Essential hypertension; Mixed hyperlipidemia; Paroxysmal SVT (supraventricular tachycardia) (CMS/HCC) (HCC); Bilateral lower extremity edema from Last 3 Months Allergies No known active allergies Medications omeprazole [...] by mouth Activ e cholecalciferol (VITAMIN D-3) 07179 unit capsule Take 1 capsule (10,000 Units total) by mouth 2 (two) times a day Active vit C-vit M-zqwggoxa-ghyz 191 15-15-10 mg-unit-mcg capsule Take by mouth [...] implantable loop record er 01/19/2021 Overview (01/19/2021): [employer] Biomonitor III-Loop Recorder. DOI 01/14/2021. [employer] remote home monitoring. Facial droop as late [...] accident (CVA) 12/18/2020 07/22/2023 Chronic anticoagulation 11/06/202006/28 Social History Tobacco Use Types Packs/Day Years [...] file Not on file Not on file Last Filed Vital Signs Vital Sign Reading [...] 09/05/2024 1:24 PM CDT Plan of Treatment Not on file Medical Devices Implanted Type Area Roof Bolting Coal Miner Device Identifier Shelf Expiration Date Model / Serial / Lot Implantable Loop Recorder Implantable Loop Recorder Bilatera l: Chest Wall [employer] 9-Pfo-025 Amplatzer 25mm 18mm 2 Disk Self Expandable Delivery System Patent - [id number] - [id number] Implanted:Qty: 1 on 01/30/2021 by Thien Pickering MD PhD at [facility] Septal Defect Closure Device [employer] 06/26/2025 9-PFO-02 5 / [id number] / [id number] Procedures Procedure Name Priority Date/Time Associated Diagnosis Comments DEVICE CHECK - REMOTE Routine 10/22/2024 9:40 AM CDT Paroxysmal SVT (supraventricular tachycardia) Bradycardia DEVICE CHECK - REMOTE Routine 09/06/2024 7:47 AM CDT Paroxysmal SVT (supraventricular tachycardia) Bradycardia from Last 3 Months Results * DEVICE CHECK - REMOTE (10/22/2024 9:40 AM CDT) Anatomical Region Laterality Modality Other Narrative 10/25/2024 2:30 PM CDT [employer] Biomonitor III-Loop Recorder. Dx; Cryptogenic Stroke, Parox [...] [employer] remote f/u 12/03/2024. Fiona Shore RN David Tyson MD CV CARDIAC SERVICES PROC EDURES Final Result * DEVICE CHECK - REMOTE (09/06/2024 7:47 AM CDT) Anatomical Region Laterality Modality Other Narrative 09/06/2024 1:18 PM CDT [employer] Biomonitor III-Loop Recorder. Dx; Cryptogenic Stroke, Parox [...] Result from Last 3 Months Insurance MEDICARE [facility] MEDICARE [facility] MEDICARE [facility] Advance Directives For more information, please contact: [phone] Documents on File Type Date Recorded Patient Manager Bilingual Expl anation Power of Load Out Supervisor 05/11/2021 8:12 AM Pt d id not bring. * Full Code (Latest Code Status on File) Date Activated Date Inactivated Comments 01/30/2021 9:02 AM 01/30/2021 7:28 PM Care Teams Asp Net Programmer Relationship Specialty Start Date End Date Frank Frazier MD PCP - General Family Medicine 03/27/20
--- OUTSIDE RECORDS SUMMARY | 2024-10-27 16:32 | XMS_ITS | Continuity of Care Document ---
[facility] Organization [email or web address] Address [address] [place] [address] Phone Care Team Providers Care Chief Unit Forester Name Role Phone Umaña OD, Juan C Unavailable Unavailable Procedures Procedure Date Contact Lens Hydrophilic, Spherical Medical Tax Contact Lens Hydrophilic, Spherical Medical Tax Eye Exam & Treatment Refraction Contact Lens Hydrophilic, Spherical Opp.io Contact Lens Hydrophilic, Spherical Opp.io CL Replacement - Vistakon Disp W/BW Soft Opp.io CL Replacement - Vistakon Disp W/BW Soft Opp.io CL Replacement - Vistakon Disp W/BW Soft Opp.io Eye Exam & Treatment Refraction CL Replacement - Vistakon Disp W/BW Soft Opp.io CL Replacement - Vistakon Disp W/BW Soft Opp.io CL Replacement - Vistakon Disp W/BW Soft Opp.io CL Replacement - Vistakon Disp W/BW Soft Opp.io No Charge Contact Lens Check CL Replacement - Vistakon Disp W/BW Soft Tax - Medical No Charge Contact Lens Check Eye Exam, New Patient Refraction Advance Directives Directive Yes / No Effective Date File Name No Information Encounters Encounter Description Practice Location Reason(s) For Visit Diagnoses Date Provider Providers Copied on Encounter [facility], [address] [place] [address] [address], [place], [place], [id number], tel:[phone] [facility] No Information 5-201 0 Umaña OD Juan C. [address], [place], [place], [facility], . tel:[phone] [facility], [address] [place] [address] [address], [place], [place], [id number], tel:[phone] [facility] No Information 1-201 0 Umaña OD Juan C. [address], [place], [facility], [place]. tel:[phone] Referring Provider: Juan C Zavala, [address], [place], [facility]. tel:[phone] [facility], [address] [place] [address] [address], [place], [place], [id number], tel:[phone] [facility] No Information Fe-0 4-201 0 Umaña OD Juan C. [address], [place], [facility], [place]. tel:[phone] [facility], [address] [place] [address] [address], [place], [place], [id number], [place] tel:[phone] [facility] No Information Feb-0 4-201 0 Umaña OD Juan C. [address], [place], [facility], . tel:[phone] Referring Provider: Juan C Umaña OD A, [address], [place], [facility]. tel:[phone] [facility], [address], [place], [place], [id number], tel:[phone] [facility] No Information Nov-0 9-200 9 Umaña OD Juan C. [address] , [address], [place], [facility], . tel:[phone] [facility], [address], [place], [place], [id number], [place] tel:[phone] [facility] No Information Aug-0 3-200 9 Umaña OD Juan C. [address] , [address], [place], [facility], [place]. tel:[phone] [facility], [address] [place] [address] [address], [place], [place], [id number], tel:[phone] [facility] No Information May-0 4-200 9 Umaña OD Juan C. [address] , [address], [place], [facility], [place]. tel:[phone] [facility], [address] [place] [address] [address], [place], [place], [id number], tel:[phone] [facility] No Information Jul-2 7-200 9 Umaña OD Juan C. [address] , [address], [place], [facility], [place]. tel:[phone] [facility], [id number] [place] [address] [address], [place], [place], [id number], [place] tel:[phone] [facility] No Information Waldo-2 9-200 9 Umaña OD Juan C. [address] , [address], [place], [facility], . tel:[phone] [facility], [address] [place] [address] [address], [place], [place], [id number], [place] tel:[phone] [facility] No Information Dec-0 3-200 8 Umaña OD Juan C. [address] , [address], [place], [facility], [place]. tel:[phone] [facility], [address], [place], [place], [id number], [place] tel:[phone] [facility] No Information Aug-2 5-200 8 Umaña OD Juan C. [address] , [address], [place], [facility], [place]. tel:[phone] [facility], [address] [place] [address] [address], [place], [place], [id number], [place] tel:[phone] [facility] No Information Santy-2 0-200 8 Umaña OD Juan C. [address], [place], [facility], [place]. tel:[phone] [facility], [address] [place] [address] [address], [place], [place], [id number], [place] tel:[phone] [facility] No Information Apr-0 4-200 8 Umaña OD Juan C. [address], [place], [facility], [place]. tel:[phone] [facility], [address] [place] [address] [address], [place], [place], [id number], [place] tel:[phone] [facility] No Information Waldo-2 4-200 8 Umaña OD Juan C. [address], [place], [facility], [place]. tel:[phone] [facility], [address], [place], [place], [id number], [place] tel:[phone] [facility] No Information Waldo-1 7-200 8 Umaña OD Juan C. [address] , [address], [place], [address], [place]. tel:[phone] [facility], [address], [place], [place], [id number], [place] tel:[phone] [facility] No Information 0-200 8 Umaña OD Juan C. [address] , [address], [place], [address], [place]. tel:[phone] Family History Family Member Type Diagnosis Age At Onset No Information Payers Payer name Insurance type Covered libertarian ID Authoriza tion(s) No Information Social History [...]
== END 2024-10-27 15:07 | disposition home or self-care (01) ==
PROVIDERS: Emergency Provider Emergency Medicine; PCP Family Medicine
DX: R10.9 Unspecified abdominal pain (principal); Z79.82 Long term (current) use of aspirin; E78.5 Hyperlipidemia, unspecified; I69.352 Hemiplegia and hemiparesis following cerebral infarction affecting left dominant side; K21.9 Gastro-esophageal reflux disease without esophagitis; I10 Essential (primary) hypertension; Z87.891 Personal history of nicotine dependence
CPT/HCPCS: 36415; 74177; 80053; 81003; 83605; 83690; 85025; 96360; 99284; J7030; Q9967

== ENCOUNTER 2025-03-29 10:54 | Outpatient (CLI) | payer MEDICARE, OTHER, SELFPAY ==
--- OUTSIDE RECORDS SUMMARY | 2010-05-10 19:00 | XMS_ITS | Continuity of Care Document ---
Author Organization [facility] [place] [place] Address [address] [place] [address] Phone Care Team Providers Care Zoo Veterinarian Name Role Phone Umaña OD, Juan C Unavailable Unavailable Procedures Procedure Date Contact Lens Hydrophilic, Spherical Medical Tax Contact Lens Hydrophilic, Spherical Medical Tax Eye Exam & Treatment Refraction Contact Lens Hydrophilic, Spherical [employer] Contact Lens Hydrophilic, Spherical [employer] CL Replacement - [employer] Disp W/BW Soft [employer] CL Replacement - [employer] Disp W/BW Soft [employer] CL Replacement - [employer] Disp W/BW Soft [employer] Eye Exam & Treatment Refraction CL Replacement - [employer] Disp W/BW Soft [employer] CL Replacement - [employer] Disp W/BW Soft [employer] CL Replacement - [employer] Disp W/BW Soft [employer] CL Replacement - [employer] Disp W/BW Soft [employer] No Charge Contact Lens Check CL Replacement - [employer] Disp W/BW Soft Tax - Medical No Charge Contact Lens Check Eye Exam, New Patient Refraction Advance Directives Directive Yes / No Effective Date File Name No Information Encounters Encounter Description Practice Location Reason(s) For Visit Diagnoses Date Provider Providers Copied on Encounter [facility] [place], [address] [place] [address] [address], [place], [place], [address], tel:[phone] [facility] No Information 5-201 0 Umaña OD Juan C. [address], [place], [facility], . tel:[phone] [facility] [place], [address] [place] [address] [address], [place], [place], [address], tel:[phone] [facility] No Information 1-201 0 Umaña OD Juan C. [address], [place], [facility], [place]. tel:[phone] Referring Provider: Juan C Zavala, [address], [place], [facility]. tel:[phone] [facility] [place], [address] [place] [address] [address], [place], [place], [address], tel:[phone] [facility] No Information Fe-0 4-201 0 Umaña OD Juan C. [address], [place], [facility], [place]. tel:[phone] [facility], [address] [place] [address] [address], [place], [place], [address], [place] tel:[phone] [facility] No Information Feb-0 4-201 0 Umaña OD Juan C. [address], [place], [facility], . tel:[phone] Referring Provider: Juan C Umaña OD A, [address], [place], [facility]. tel:[phone] [facility], [address], [place], [place], [address], tel:[phone] [facility] No Information Nov-0 9-200 9 Umaña OD Juan C. [address], [place], [facility], . tel:[phone] [facility], [address], [place], [place], [address], [place] tel:[phone] [facility] No Information Aug-0 3-200 9 Umaña OD Juan C. [address], [place], [facility], [place]. tel:[phone] [facility], [address] [place] [address] [address], [place], [place], [address], tel:[phone] [facility] No Information May-0 4-200 9 Umaña OD Juan C. [address], [place], [facility], [place]. tel:[phone] [facility], [address] [place] [address] [address], [place], [place], [address], tel:[phone] [facility] No Information Jul-2 7-200 9 Umaña OD Juan C. [address], [place], [facility], [place]. tel:[phone] [facility], [address] [place] [address] [address], [place], [place], [address], [place] tel:[phone] [facility] No Information Waldo-2 9-200 9 Umaña OD Juan C. [address], [place], [facility], . tel:[phone] [facility], [address] [place] [address] [address], [place], [place], [address], [place] tel:[phone] [facility] No Information Dec-0 3-200 8 Umaña OD Juan C. [address], [place], [facility], [place]. tel:[phone] [facility], [address], [place], [place], [address], [place] tel:[phone] [facility] No Information Aug-2 5-200 8 Umaña OD Juan C. [address], [place], [facility], [place]. tel:[phone] [facility], [address] [place] [address] [address], [place], [place], [address], [place] tel:[phone] [facility] No Information Santy-2 0-200 8 Umaña OD Juan C. [address], [place], [facility], [place]. tel:[phone] [facility], [address] [place] [address] [address], [place], [place], [address], [place] tel:[phone] [facility] No Information Apr-0 4-200 8 Umaña OD Juan C. [address], [place], [facility], [place]. tel:[phone] [facility], [address] [place] [address] [address], [place], [place], [address], [place] tel:[phone] [facility] No Information Waldo-2 4-200 8 Umaña OD Juan C. [address], [place], [facility], [place]. tel:[phone] [facility], [address], [place], [place], [address], [place] tel:[phone] [facility] No Information Waldo-1 7-200 8 Umaña OD Juan C. [address], [place], [address], [place]. tel:[phone] [facility], [address], [place], [place], [address], [place] tel:[phone] [facility] No Information 0-200 8 Umaña OD Juan C. [address], [place], [address], [place]. tel:[phone] Family History Family Member Type Diagnosis Age At Onset No Information Payers Payer name Insurance type Covered green party ID Authoriza tion(s) No Information Social History [...]
--- OUTSIDE RECORDS SUMMARY | 2025-03-29 11:04 | XMS_ITS | Clinical Summary ---
Author Organization [facility] [place] [facility] Address [address] [place] [id number] Care Team Providers Care Rotary Peel Oven Tender Name Role Phone Frank Frazier MD Primary Care Provider Allergies No known active allergies Medications omeprazole [...] by mouth Activ e cholecalciferol (VITAMIN D-3) 90499 unit capsule Take 1 capsule (10,000 Units total) by mouth 2 (two) times a day Active vit C-vit W-qcrucoao-pold 191 15-15-10 mg-unit-mcg capsule Take by mouth [...] needed (swelling) 30 tablet 1 5 Active Additional Information Patient not taking.Reported on 03/11/2025 losartan (COZAAR) 100 mg tablet Take 1 tablet (100 mg total) by mouth daily 90 tablet 3 5 Active hydroCHLOROthia zide 12.5 mg tablet Take 1 tablet/capsule (12.5 mg total) by mouth every morning 30 tablet/capsu le 11 5 03/11/20 26 Active Active Problems Problem Noted Date Diagnosed Date Bilateral carotid bruits 03/11/2025 Bilateral lower extremity edema 09/05/2024 Mixed hyperlipidemia 05/25/2022 Nonrheumatic aortic valve stenosis 05/25/2022 Bradycardia 05/25/2022 CHAPA (dyspnea on exertion) 05/25/2022 S/P device closure of atrial septal defect 05/13 Visit for wound check 01/20/2021 Status post placement of implantable loop record er 01/19/2021 Overview (01/19/2021): MTEM [employer] Biomonitor III-Loop Recorder. DOI 01/14/2021. MTEM [employer] remote home monitoring. Facial droop as late [...] Encounters Date Type Department Care Team Description 03/13/2025 Results Follow-Up [facility] Cardiology [address] [facility] [address] [place] [address] Juan Moreno MD US Carotids Duplex Bilateral 03/12/2025 3:00 PM CDT Ancillary Procedure [facility] Vascular and Vein Surgery at [address] [place] [address] Bilateral carotid bruits 03/11/2025 10:45 AM CDT Office Visit [facility] Cardiology [address] [place] [address] [address] [place] [address] Juan Moreno MD Mixed hyperlipidemia (Primary Dx); Bilateral carotid bruits; Essential hypertension; Nonrheumatic aortic valve stenosis; Paroxysmal SVT (supraventricular tachycardia) (CMS/HCC) (HCC) 03/04/2025 7:00 AM CDT Ancillary Procedure [facility] Cardiology [address] [place] [phone] Status post placement of implantable loop recorder (Primary Dx); Paroxysmal SVT (supraventricular tachycardia); Bradycardia; Cryptogenic stroke (HCC) 01/14/2025 7:00 AM CDT Ancillary Procedure [facility] Cardiology [address] [place] [phone] Status post placement of implantable loop recorder (Primary Dx); Paroxysmal SVT (supraventricular tachycardia); Bradycardia; Palpitations 01/14/2025 Orders Only [facility] Cardiology [address] [place] [phone] Juan Moreno MD Paroxysmal SVT (supraventricular tachycardia) (CMS/HCC) (HCC) (Primary Dx); Status post placement of implantable loop recorder; Cryptogenic stroke (HCC); Palpitations from Last 3 Months Surgical History Surgery Date Site/Laterality Comments HERNIA REPAIR KNEE SURGERY SHOULDER SURGERY PROSTATE SURGERY FRACTURE SURGERY About 40 years ago CATARACT EXTRACTION Medical History Medical History Date Comments Gastric reflux Hypertension Migraines Stroke (HCC) Acute CVA (cerebrovascular accident) (HCC) Cerebral infarction PSVT (paroxysmal supraventricular tachycardia) PFO (patent foramen ovale) Supraventricular tachycardia Arthritis Enlarged prostate GERD (gastroesophageal reflux disease) Covid Cataract 2017 Sleep apnea 2023 Benign prostatic hyperplasia Unknown [...] Sign Reading Time Taken Comments Blood Pressure 120/60 03/11/2025 10:45 AM CDT Pulse 62 03/11/2025 10:45 AM CDT Temperature 36.4 C (97.6 F) 04/15/2021 10:11 AM CDT Respiratory Rate 20 01/30/2021 2:20 PM CDT Oxygen Saturation 97% 03/11/2025 10:45 AM CDT Inhaled Oxygen Concentration - - Weight 107 kg (235 lb 14.4 oz) 03/11/2025 10:45 AM CDT Height 177.8 cm (5' 10) 03/11/2025 10:45 AM CDT Body Mass Index 33.85 03/11/2025 10:45 AM CDT Plan of Treatment Health Maintenance Due Date Last Done Comments Depression Screening 1940 DTaP/Tdap/Td Vaccine (1 - Tdap) 1953 Hepatitis B Screening 1960 Pneumococcal vaccine 65+ (1 of 1 - PCV) 1992 Zoster Vaccine (1 of 2) 1992 Well Visit 65+ 2007 Fall Risk Assessment 01/30/2022 01/30/2021 Influenza Vaccine (#1) 2025 3, 04/17/2012, 03/29/2011 Medical Devices Implanted Type Area Contact Center Agent Device Identifier Shelf Expiration Date Model / Serial / Lot Implantable Loop Recorder Implantable Loop Recorder Bilatera l: Chest Wall [employer] [id number]-025 Amplatzer 25mm 18mm 2 Disk Self Expandable Delivery System Patent - [id number] - [id number] Implanted:Qty: 1 on 01/30/2021 by Susie Pickering MD PhD at [facility] Septal Defect Closure Device [employer] 06/26/2025 9-PFO-02 [id number] / [id number] Procedures Procedure Name Priority Date/Time Associated Diagnosis Comments US CAROTIDS DUPLEX BILATERAL Schedule Routine, Read Routine (OP Routine) 03/12/2025 3:35 PM CDT Bilateral carotid bruits POCT LIPID PANEL Routine 03/11/2025 10:4 9 AM CDT Mixed hyperlipidemia DEVICE CHECK - REMOTE Routine 03/05/2025 8:11 AM CDT Paroxysmal SVT (supraventricular tachycardia) Bradycardia DEVICE CHECK - REMOTE Routine 01/14/2025 3:15 PM CDT Paroxysmal SVT (supraventricular tachycardia) Bradycardia from Last 3 Months Results * US Carotids Duplex Bilateral (03/12/2025 3:35 PM CDT) Anatomical Region Laterality Modality Vascular Bilateral Ultrasound 03/12/2025 3:06 PM CDT Narrative 03/13/2025 9:01 AM CDT Vascular & Vein Surgery [address] [place] [address]. [place] [address] Carotid Duplex Ultrasound Report Patient Name: SUSIE TINEO : 1940 (84y 8m) Study Date: 03/12/2025 3:06:18 PM Sex: M Special Educator: DAMARIS Location: [facility] Ref Provider: JUAN MORENO Quality: Adequate Order Provider: JUAN MORENO PROCEDURES: Carotid Report: Carotid duplex examination of the extracranial arteries was performed using 2D, color and spectral Doppler. INDICATIONS: Bilateral bruits. HISTORY: HTN. HLD. PFO- closure 01/30/21. Recurrent CVAs. Former smoker. COMPARISONS: No previous exams. MEASUREMENTS: Right Value Left Value RT Prox CCA PSV 102 cm/sec LT Prox CCA PSV 90 cm/sec RT Prox CCA EDV 8 cm/sec LT Prox CCA EDV 13 cm/sec RT Distal CCA PSV 63 cm/sec LT Distal CCA PSV 64 cm/sec RT Distal CCA EDV 10 cm/sec LT Distal CCA EDV 20 cm/sec RT Prox ICA PSV 48 cm/sec LT Prox ICA PSV 62 cm/sec RT Prox ICA EDV 9 cm/sec LT Prox ICA EDV 11 cm/sec RT Mid ICA PSV 75 cm/sec LT Mid ICA PSV 55 cm/sec RT Mid ICA EDV 25 cm/sec LT Mid ICA EDV 14 cm/sec RT Distal ICA PSV 52 cm/sec LT Distal ICA PSV 53 cm/sec RT Distal ICA EDV 11 cm/sec LT Distal ICA EDV 21 cm/sec RT ECA Prx PSV 85 cm/sec LT ECA Prx PSV 54 cm/sec RT ICA/CCA 1.19 ratio LT ICA/CCA 0.97 ratio Rt Vert Dst PSV 47 cm/sec Lt Vert Dst PSV 48 cm/sec FINDINGS: Rt Common Carotid Artery: Duplex imaging of the right common carotid artery is within normal limits without evidence of atherosclerotic disease. Rt Internal Carotid Artery: The plaque in the right internal carotid artery appears to be heterogeneous and smooth. Atherosclerotic changes of the right internal carotid artery without hemodynamically significant Doppler findings. <50% stenosis. Rt External Carotid Artery: Patent right external carotid artery with evidence of atherosclerotic disease present. Rt Vertebral Artery: The right vertebral artery is patent with antegrade flow. Lt Common Carotid Artery: The plaque in the left CCA appears to be heterogeneous. Lt Internal Carotid Artery: The plaque in the left internal carotid artery appears to be heterogeneous and smooth. Atherosclerotic changes of the left internal carotid artery without hemodynamically significant Doppler findings. <50% stenosis. Lt External Carotid Artery: Patent left external carotid artery with evidence of atherosclerotic disease present. Lt Vertebral Artery: The left vertebral artery is patent with antegrade flow. Comments: Brachial artery systolic blood pressure is 141 on the right, 144 on the left. CONCLUSIONS: 1. No evidence of hemodynamically significant disease of the bilateral extracranial carotid system. 2. Normal, antegrade flow is noted in bilateral vertebral arteries. ATTESTATION: I have reviewed and interpreted the pertinent images and measurements of this study. I attest to the conclusions in the final report that is provided above. Electronically Signed By: Jad Li MD 03/13/2025 8:14:26 AM CDT Procedure Note Jad Li MD - 03/13/2025 Vascular & Vein Surgery [address] [place] [address]. [place] [address] Carotid Duplex Ultrasound Report Patient Name: SUSIE TINEO : 1940 (84y 8m) Study Date: 03/12/2025 3:06:18 PM Sex: M Special Educator: DAMARIS Location: [facility] Ref Provider: JUAN MORENO Quality: Adequate Order Provider: JUAN MORENO PROCEDURES: Carotid Report: Carotid duplex examination of the extracranial arterieswas performed using 2D, color and spectral Doppler. INDICATIONS: Bilateral bruits. HISTORY: HTN. HLD. PFO- closure 01/30/21. Recurrent CVAs. Former smoker. COMPARISONS: No previous exams. MEASUREMENTS: Right Value Left Value RT Prox CCA PSV 102 cm/sec LT Prox CCA PSV 90 cm/sec RT Prox CCA EDV 8 cm/sec LT Prox CCA EDV 13 cm/sec RT Distal CCA PSV 63 cm/sec LT Distal CCA PSV 64 cm/sec RT Distal CCA EDV 10 cm/sec LT Distal CCA EDV 20 cm/sec RT Prox ICA PSV 48 cm/sec LT Prox ICA PSV 62 cm/sec RT Prox ICA EDV 9 cm/sec LT Prox ICA EDV 11 cm/sec RT Mid ICA PSV 75 cm/sec LT Mid ICA PSV 55 cm/sec RT Mid ICA EDV 25 cm/sec LT Mid ICA EDV 14 cm/sec RT Distal ICA PSV 52 cm/sec LT Distal ICA PSV 53 cm/sec RT Distal ICA EDV 11 cm/sec LT Distal ICA EDV 21 cm/sec RT ECA Prx PSV 85 cm/sec LT ECA Prx PSV 54 cm/sec RT ICA/CCA 1.19 ratio LT ICA/CCA 0.97 ratio Rt Vert Dst PSV 47 cm/sec Lt Vert Dst PSV 48 cm/sec FINDINGS: Rt Common Carotid Artery: Duplex imaging of the right common carotidartery is within normal limits without evidence of atherosclerotic disease. Rt Internal Carotid Artery: The plaque in the right internal carotidartery appears to be heterogeneous and smooth. Atherosclerotic changes of the right internalcarotid artery without hemodynamically significant Doppler findings. <50% stenosis. Rt External Carotid Artery: Patent right external carotid artery withevidence of atherosclerotic disease present. Rt Vertebral Artery: The right vertebral artery is patent with antegradeflow. Lt Common Carotid Artery: The plaque in the left CCA appears to beheterogeneous. Lt Internal Carotid Artery: The plaque in the left internal carotid arteryappears to be heterogeneous and smooth. Atherosclerotic changes of the left internalcarotid artery without hemodynamically significant Doppler findings. <50% stenosis. Lt External Carotid Artery: Patent left external carotid artery withevidence of atherosclerotic disease present. Lt Vertebral Artery: The left vertebral artery is patent with antegradeflow. Comments: Brachial artery systolic blood pressure is 141 on the right, 144on the left. CONCLUSIONS: 1. No evidence of hemodynamically significant disease of the bilateralextracranial carotid system. 2. Normal, antegrade flow is noted in bilateral vertebral arteries. ATTESTATION: I have reviewed and interpreted the pertinent images and measurements ofthis study. I attest to the conclusions in the final report that is provided above. Electronically Signed By: Jad Li MD 03/13/2025 8:14:26 AM CDT us Juan Moreno MD IM US PROCEDURES Final R esult * (ABNORMAL) POCT lipid panel (03/11/2025 10:49 AM CDT) Pathologist [facility] Cholesterol, POC 114 <200 MG/DL Comment:GLU 106 HDL, POC 46 >=40 mg/dL Triglycerides, POC 185(A) <=149 mg/dL LDL Cholesterol POC 31 <=129 mg/dL Chol/HDL Ratio, POC 0.7 NONE Non-HDL Cholesterol, POC 68 NONE mg/dL Cholesterol Total, POC 114 30 - 199 mg/dL Capillary blood 03/11/2025 1 0:49 AM CDT Juan Moreno MD POINT OF CARE TEST ORDERA BLES Final Result * DEVICE CHECK - REMOTE (03/05/2025 8:11 AM CDT) Anatomical Region Laterality Modality Other Narrative 03/14/2025 5:10 PM CDT [employer] Biomonitor III-Loop Recorder. Dx; Cryptogenic Stroke, Parox SVT, Palpitations. DOI 01/14/2021. [employer] remote home monitoring. Routine ILR remote. Normal device function. Battery function-Ok. Presenting rhythm- VS, 60 bpm. Counters; No HVR episodes, Bradycardia, Asystole, or Patient Triggered episodes noted since implant 01/14/2021. 1564 Total AF episodes recorded since 01/15/21, egm's SA/SB/SR with PAC's, PVC's. 1399 ectopic beats noted. 3553 since implant 01/15/2021. Average HR 55 bpm. Medications; ASA 81 mg, Cozaar Lipitor. See scanned report. Bi[employer]ik remote f/u 04/15/2025. Fiona Shore RN David Tyson MD [facility] PROC EDURES Final Result * DEVICE CHECK - REMOTE (01/14/2025 3:15 PM CDT) Anatomical Region Laterality Modality Other Narrative 01/15/2025 10:47 AM CDT [employer] Biomonitor III-Loop Recorder. Dx; Cryptogenic Stroke, Parox SVT, Palpitations. DOI 01/14/2021. [employer] remote home monitoring. Routine ILR remote. Normal device function. Battery function-Ok. Presenting rhythm- VS, 60 bpm. Counters; No HVR episodes, Bradycardia, Asystole, or Patient Triggered episodes noted since implant 01/14/2021. 1479 Total AF episodes recorded since 01/15/21, egm's SA/SB/SR with PAC's, PVC's. 5081 ectopic beats noted. 3553 since implant 01/15/2021. Average HR 65 bpm. Medications; ASA 81 mg, Cozaar Lipitor. See scanned report. Biotronik remote f/u 03/04/2025. Fiona Shore RN David Tyson MD [facility] PROC EDURES Final Result from Last 3 Months Insurance MEDICARE [facility] MEDICARE [facility] MEDICARE [facility] Advance Directives For more information, please contact: [phone] Documents on File Type Date Recorded Patient Rn Cardiology Expl anation Power of Denture Packer 05/11/2021 8:12 AM Pt d id not bring. * Full Code (Latest Code Status on File) Date Activated Date Inactivated Comments 01/30/2021 9:02 AM 01/30/2021 7:28 PM Care Teams Rotary Peel Oven Tender Relationship Specialty Start Date End Date Frank Frazier MD PCP - General Family Medicine 03/27/20
--- OUTSIDE RECORDS SUMMARY | 2025-03-29 11:04 | XMS_ITS | Encounter Summary ---
Author Organization [facility] Healthcare Address [address] [place] [address] Care Team Providers Care Curb Setter Name Role Phone Frank Frazier MD Primary Care Provider Encounter Details Date Type Department Care Team (Late st Contact Info) Description 03/13/2025 Results Follow-Up [facility] Medical Group Cardiology [address] [place] [address] Russ Pitts MD [address] [facility] [address] [place] [address] US Carotids Duplex Bilateral Social History Tobacco Use Types Packs/Day Years Used Date Smoking Tobacco: Former Cigarettes 3 15 Q uit: 1979 Smokeless Tobacco: Never Alcohol Use Standard Drinks/Week Comments Yes 0 [...] file Not on file Not on file documented as of this encounter Plan of Treatment Not on file documented as of this encounter Visit Diagnoses Not on filedocumented in this encounter Care Teams Curb Setter Relationship Specialty Start Date End Date Frank Frazier MD PCP - General Family Medicine 03/27/20 documented as of this encounter
[2025-03-29 11:46] LABS: Anion Gap 7 mmol/L (4-12); Blood Urea Nitrogen 16 mg/dL (9-20); Calcium 9.2 mg/dL (8.4-10.2); Carbon Dioxide 25 mmol/L (22-30); Chloride 93 mmol/L (98-107); Estimated Glomerular Filt Rate > 60; Glucose 103 mg/dL (65-110); Potassium 4.2 mmol/L (3.4-5.0); Sodium 125 mmol/L (137-145)
== END 2025-03-29 10:55 | disposition home or self-care (01) ==
LOC: ANHLAB 11:01
PROVIDERS: PCP Family Medicine; Visit Provider Internal Medicine Cardiovascular Disease
DX: I10 Essential (primary) hypertension (principal)
CPT/HCPCS: 36415; 80048

== ENCOUNTER 2025-04-11 13:32 | Outpatient (CLI) | payer MEDICARE, OTHER, SELFPAY ==
--- OUTSIDE RECORDS SUMMARY | 2010-05-10 19:00 | XMS_ITS | Continuity of Care Document ---
Author Organization [facility] Address [address] [place] [address] Phone Care Team Providers Care Lithographic Photographer Apprentice Name Role Phone Umaña OD, Juan C Unavailable Unavailable Procedures Procedure Date Contact Lens Hydrophilic, Spherical Medical Tax Contact Lens Hydrophilic, Spherical Medical Tax Eye Exam & Treatment Refraction Contact Lens Hydrophilic, Spherical [email or web address] Contact Lens Hydrophilic, Spherical [email or web address] CL Replacement - [employer] Disp W/BW Soft [email or web address] CL Replacement - [employer] Disp W/BW Soft [email or web address] CL Replacement - [employer] Disp W/BW Soft [email or web address] Eye Exam & Treatment Refraction CL Replacement - [employer] Disp W/BW Soft [email or web address] CL Replacement - [employer] Disp W/BW Soft [email or web address] CL Replacement - [employer] Disp W/BW Soft [email or web address] CL Replacement - [employer] Disp W/BW Soft [email or web address] No Charge Contact Lens Check CL Replacement - [employer] Disp W/BW Soft Tax - Medical No Charge Contact Lens Check Eye Exam, New Patient Refraction Advance Directives Directive Yes / No Effective Date File Name No Information Encounters Encounter Description Practice Location Reason(s) For Visit Diagnoses Date Provider Providers Copied on Encounter [facility], [address] [place] [address] [address], [place], [place], [id number], tel:[phone] [facility] No Information 5-201 0 Umaña OD Juan C. [address] , [address], [place], [place], [facility], . tel:[phone] [facility], [address] [place] [address] [address], [place], [place], [address], tel:[phone] [facility] No Information 1-201 0 Umaña OD Juan C. [address], [place], [facility], [place]. tel:[phone] Referring Provider: Juan C Zavala, [address], [place], [facility]. tel:[phone] [facility], [address] [place] [address] [address], [place], [place], [address], tel:[phone] [facility] No Information Fe-0 4-201 0 Umaña OD Juan C. [address], [place], [facility], [place]. tel:[phone] [facility], [address] [place] [address] [address], [place], [place], [address], [place] tel:[phone] [facility] No Information Feb-0 4-201 0 Umaña OD Juan C. [address], [place], [facility], . tel:[phone] Referring Provider: Juan C Umaña OD A, [address], [place], [facility]. tel:[phone] [facility], [address], [place], [place], [address], tel:[phone] [facility] No Information Nov-0 9-200 9 Umaña OD Juan C. [address], [place], [facility], . tel:[phone] [facility], [address], [place], [place], [address], [place] tel:[phone] [facility] No Information Aug-0 3-200 9 Umaña OD Juan C. [address] , [address], [place], [facility], [place]. tel:[phone] [facility], [address] [place] [address] [address], [place], [place], [address], tel:[phone] [facility] No Information May-0 4-200 9 Umaña OD Juan C. [address] , [address], [place], [facility], [place]. tel:[phone] [facility], [address] [place] [address] [address], [place], [place], [address], tel:[phone] [facility] No Information Jul-2 7-200 9 Umaña OD Juan C. [address], [place], [facility], [place]. tel:[phone] [facility], [address] [place] [address] [address], [place], [place], [address], [place] tel:[phone] [facility] No Information Waldo-2 9-200 9 Umaña OD Juan C. [address], [place], [facility], . tel:[phone] [facility], [address] [place] [address] [address], [place], [place], [address], [place] tel:[phone] [facility] No Information Dec-0 3-200 8 Umaña OD Juan C. [address], [place] [facility], [place]. tel:[phone] [facility], [address], [place], [place], [address], [place] tel:[phone] [facility] No Information Aug-2 5-200 8 Umaña OD Juan C. [address], [place] [facility], [place]. tel:[phone] [facility], [address] [place] [address] [address], [place], [place], [address], [place] tel:[phone] [facility] No Information Santy-2 0-200 8 Umaña OD Juan C. [address] , [address], [place] [facility], [place]. tel:[phone] [facility], [address] [place] [address] [address], [place], [place], [address], [place] tel:[phone] [facility] No Information Apr-0 4-200 8 Umaña OD Juan C. [address], [place] [facility], [place]. tel:[phone] [facility], [address] [place] [address] [address], [place], [place], [address], [place] tel:[phone] [facility] No Information Waldo-2 4-200 8 Umaña OD Juan C. [address], [place] [facility], [place]. tel:[phone] [facility], [address], [place], [place], [address], [place] tel:[phone] [facility] No Information Waldo-1 7-200 8 Umaña OD Juan C. [address] , [address], [place], [address], [place]. tel:[phone] [facility], [address], [place], [place], [address], [place] tel:[phone] [facility] No Information 0-200 8 Umaña OD Juan C. [address] , [address], [place], [address], [place]. tel:[phone] Family History Family Member Type Diagnosis Age At Onset No Information Payers Payer name Insurance type Covered democrat ID Authoriza tion(s) No Information Social History Type Description Quantity Date Captured Comments Sex Male Smoking Status No Information Chief Complaint And Reason For Visit No Information Reason For Referral Reason For Referral No Information History Of Present Illness Encounter Date Complaint History Of Prese nt Illness No Information Functional Status Date Functional Assessmen t No Information Instructions Date Instruction Additional Infor mation No Information Assessments Type Assessment Date No Information Patient Care Teams Name Effective Dates (start - stop) Status Members No Information
[2025-04-11 14:53] LABS: Anion Gap 8 mmol/L (4-12); Blood Urea Nitrogen 20 mg/dL (9-20); Calcium 8.8 mg/dL (8.4-10.2); Carbon Dioxide 23 mmol/L (22-30); Chloride 96 mmol/L (98-107); Estimated Glomerular Filt Rate > 60; Glucose 98 mg/dL (65-110); Potassium 4.1 mmol/L (3.4-5.0); Sodium 127 mmol/L (137-145)
--- OUTSIDE RECORDS SUMMARY | 2025-04-11 15:32 | XMS_ITS | Encounter Summary ---
Author Organization [facility] Healthcare Address [address] [place] [address] Care Team Providers Care Tobacco Acreage Measurer Name Role Phone Frank Frazier MD Primary Care Provider [phone] Encounter Details Date Type Department Care Team (Late st Contact Info) Description 03/13/2025 Results Follow-Up [facility] Medical Group Cardiology [address] [place] [address] Russ Pitts MD [address] [facility] [address] [place] [address] US Carotids Duplex Bilateral Social [...] on filedocumented in this encounter Care Teams Tobacco Acreage Measurer Relationship Specialty Start Date End Date Frank Frazier MD PCP - General Family Medicine 03/27/20 documented as of this encounter
--- OUTSIDE RECORDS SUMMARY | 2025-04-11 15:32 | XMS_ITS | Clinical Summary ---
Author Organization [facility] Address [address] [place] [address] Care Team Providers Care Assault Amphibious Vehicle Crewman Name Role Phone Frank Frazier MD Primary Care Provider [phone] Encounters Date Type Department Care Team Description 02/15/2025 10:38 AM CDT - 02/15/2025 11:59 PM CDT Hospital Encounter [facility] [place] [facility] [place] [address] Karan Sevilla MD Discharge Disposition: Home or Self Care (Routine Discharge) 02/15/2025 Travel from Last 3 Months Social History Tobacco Use Types Packs/Day Years Used Date Smoking Tobacco: Never Assessed Sex and Gender Information Value Date Recorded Sex Assigned at Male 02/15/2025 10:31 AM CDT Legal Sex Male 2:50 PM CDT Gender Identity Not on file Sexual Orientation Not on file Plan of Treatment Health Maintenance Due Date Last Done Comments Pneumococcal Vaccine: 50+ Years (1 of 1 - PCV) 1992 Zoster Vaccines (1 of 2) 1992 Annual Medicare Wellness Visit 2007 RSV Immunization or 60+ Years (1 - 1-dose 75+ series) 2017 COVID-19 Vaccine ( - 2023-2 5 season) 2025 Influenza Adult (#1) 2025 06/08/2013, 04/17/2012, 03/29/2011 DTaP, Tdap and Td Vaccines ( 2 - Td or Tdap) 10/13/2025 10/14/2015 Hepatitis A Vaccines Aged Out No long er eligible based on patient's age to complete this topic Meningococcal B Vaccine Aged Out No l onger eligible based on patient's age to complete this topic Meningococcal Vaccine Aged Out No quinten rebecca eligible based on patient's age to complete this topic RSV Immunizations Under 20 Months Aged Out No longer eligible b ased on patient's age to complete this topic Procedures Procedure Name Priority Date/Time Associated Diagnosis Comments IR HIP INJ/ASP RT Routine 02/27/2025 4:3 0 PM CDT Right hip pain from Last 3 Months Results * IR HIP INJ/ASP RT (02/27/2025 4:30 PM CDT) Anatomical Region Laterality Modality Hip Interventional R adiology, Radiographic Imaging, Radiographic Imaging 02/15/2025 1:47 PM CDT Impressions 02/15/2025 1:49 PM CDT IMPRESSION: Procedure note for successful Right hip joint steroid and anesthetic injection with fluoroscopy. Ordered By: KARAN SEVILLA Interpreted By: Nora Morales MD, 02/15/2025 1:47 PM Narrative 02/15/2025 1:49 PM CDT [address] [address] Procedure: IR joint steroid and anesthetic injection with fluoroscopy, right hip Exam Date/Time: 02/15/2025 11:18 AM Indication: 84 male presenting for joint steroid and anesthetic injection. Right hip chronic pain. Osteoarthritis. Comparison: None Procedure technique the patient: Informed verbal and written consent was obtained on the patient/patient's medical power of criminal attorney. Procedure was discussed including the alternatives, benefits and risks including but not limited to infection, bleeding, damage to the joint and adjacent structures. Timeout was performed. Sterile barrier technique including hand hygiene, and skin preparation was employed for the procedure. Patient was positioned supine with the right foot internally rotated. The anterior joint was localized with fluoroscopy. 1% lidocaine was administered for local anesthesia. A 22-gauge spinal needle was advanced with intermittent fluoroscopy guidance into the hip joint at the superior margin of the femoral neck. Intra-articular needle position was confirmed with 0.5 mL Isovue-300 contrast administration. 1 mL/80 mg Depo-Medrol and 5 mL 0.5% bupivacaine was then administered. The needle was withdrawn, compression was applied and a Band-Aid placed. The patient tolerated the procedure well. No immediate complication Radiation exposure - Reference Air Kerma (Ka,r) 5.1 mGy for this procedure. 2 fluoroscopy images recorded Findings: Mild right hip joint osteoarthritis. Contrast present within the joint postinjection. Procedure Note Nora Morales MD - 02/15/2025 [facility] [address] [place], [place] [address] Procedure: IR joint steroid and anesthetic injection with fluoroscopy,right hip Exam Date/Time: 02/15/2025 11:18 AM Indication: 84 male presenting for joint steroid and anesthetic injection.Right hip chronic pain. Osteoarthritis. Comparison: None Procedure technique the patient: Informed verbal and written consent wasobtained on the patient/patient's medical power of criminal attorney. Procedure wasdiscussed including the alternatives, benefits and risks including but notlimited to infection, bleeding, damage to the joint and adjacentstructures. Timeout was performed. Sterile barrier technique including hand hygiene, and skin preparation wasemployed for the procedure. Patient was positioned supine with the right foot internally rotated. Theanterior joint was localized with fluoroscopy. 1% lidocaine wasadministered for local anesthesia. A 22-gauge spinal needle was advancedwith intermittent fluoroscopy guidance into the hip joint at the superiormargin of the femoral neck. Intra-articular needle position was confirmedwith 0.5 mL Isovue-300 contrast administration. 1 mL/80 mg Depo-Medrol and5 mL 0.5% bupivacaine was then administered. The needle was withdrawn,compression was applied and a Band-Aid placed. The patient tolerated the procedure well. No immediate complication Radiation exposure - Reference Air Kerma (Ka,r) 5.1 mGy for thisprocedure. 2 fluoroscopy images recorded Findings: Mild right hip joint osteoarthritis. Contrast present withinthe joint postinjection. IMPRESSION: Procedure note for successful Right hip joint steroid and anestheticinjection with fluoroscopy. Ordered By: KARAN SEVILLA Interpreted By: Nora Morales MD, 02/15/2025 1:47 PM us Karan Sevilla MD INTERVENTIONAL RADIOLOGY [place] Result from Last 3 Months Insurance MEDICARE [facility] Care Teams Assault Amphibious Vehicle Crewman Relationship Specialty Start Date End Date Frank Frazier MD [address] [address] PCP - General FAMILY PRACTICE 02/15/25
--- OUTSIDE RECORDS SUMMARY | 2025-04-11 15:32 | XMS_ITS | Clinical Summary ---
Author Organization [facility] Address [address] [place] [phone] Care Team Providers Care Television Maintenance Worker Name Role Phone Frank Frazier MD Primary [...] by mouth Activ e cholecalciferol (VITAMIN D-3) 65098 unit capsule Take 1 capsule (10,000 Units total) by mouth 2 (two) times a day Active vit C-vit O-cswsvtgu-qyab 191 15-15-10 mg-unit-mcg capsule Take by mouth [...] implantable loop record er 01/19/2021 Overview (01/19/2021): [employer] Biomonitor III-Loop Recorder. DOI 01/14/2021. [employer] remote home monitoring. Facial droop as late [...] Encounters Date Type Department Care Team Description 04/02/2025 Telephone [facility] Card[facility] [address] [place] [address] Juan Moreno MD 03/13/2025 Results Follow-Up [facility] [address] [place] [address] Juan Moreno MD US Carotids Duplex Bilateral 03/12/2025 3:00 PM CDT Ancillary Procedure [facility] Vascular and Vein Surgery at [address] [place] [phone] Bilateral carotid bruits 03/11/2025 10:45 AM CDT Office Visit [facility] [address] [place] [phone] Juan Moreno MD Mixed hyperlipidemia (Primary Dx); Bilateral carotid bruits; Essential hypertension; Nonrheumatic aortic valve stenosis; Paroxysmal SVT (supraventricular tachycardia) (CMS/HCC) (HCC) 03/04/2025 7:00 AM CDT Ancillary Procedure [facility] [address] [place] [address] [place] [phone] Status post placement of implantable loop recorder (Primary Dx); Paroxysmal SVT (supraventricular tachycardia); Bradycardia; Cryptogenic stroke (HCC) 01/14/2025 7:00 AM CDT Ancillary Procedure [facility] [address] [place] [address] [place] [phone] Status post placement of implantable loop recorder (Primary Dx); Paroxysmal SVT (supraventricular tachycardia); Bradycardia; Palpitations 01/14/2025 Orders Only [facility] [address] [place] [address] [place] [phone] Juan Moreno MD Paroxysmal SVT (supraventricular tachycardia) [...] Tobacco: Former Cigarettes 3 15 Q uit: 1978 Smokeless Tobacco: Never Tobacco Cessation:Counseling Given: Not [...] 04/17/2012, 03/29/2011 Medical Devices Implanted Type Area Underwriting Intern Device Identifier Shelf Expiration Date Model / Serial / Lot Implantable Loop Recorder Implantable Loop Recorder Bilatera l: Chest Wall [employer] 9-Pfo-025 Amplatzer 25mm 18mm 2 Disk Self Expandable Delivery System Patent - [id number] - [id number] Implanted:Qty: 1 on 01/30/2021 by Susie Pickering MD PhD at [facility] Septal Defect Closure Device [employer] 06/26/2025 9-PFO-02 5 / [id number] / [id number] Procedures Procedure Name Priority Date/Time Associated Diagnosis [...] 9:01 AM CDT Vascular & Vein Surgery [facility] [place] [address] Carotid Duplex Ultrasound Report Patient Name: SUSIE TINEO : 1940 (84y 8m) Study Date: 03/12/2025 3:06:18 PM Sex: M Wall Covering Contractor: DAMARIS Location: [facility] Ref Provider: JUAN MORENO [...] that is provided above. Electronically Signed By: aJd Li MD 03/13/2025 8:14:26 AM CDT Procedure Note Jad Li MD - 09/17/2025 Vascular & Vein Surgery [address] [place] [address] Carotid Duplex Ultrasound Report Patient Name: SUSIE TINEO : 1940 (84y 8m) Study Date: 03/12/2025 3:06:18 PM Sex: M Wall Covering Contractor: DAMARIS Location: [facility] Ref Provider: JUAN MORENO [...] POCT lipid panel (03/11/2025 10:49 AM CDT) [facility] Signature Cholesterol, POC 114 <200 MG/DL Comment:GLU 106 [...] Result from Last 3 Months Insurance MEDICARE [facility] MEDICARE [facility] MEDICARE [facility] Advance Directives For more information, please contact: [phone] Documents on File Type Date Recorded Patient Transition Assistant Expl anation Power of Program Project Manager 05/11/2021 8:12 AM Pt d id not bring. * Full Code (Latest Code Status on File) Date Activated Date Inactivated Comments 01/30/2021 9:02 AM 01/30/2021 7:28 PM Care Teams Television Maintenance Worker Relationship Specialty Start Date End Date Frank Frazier MD PCP - General Family Medicine 03/27/20
== END 2025-04-11 13:33 | disposition home or self-care (01) ==
LOC: ANHLAB 13:38
PROVIDERS: PCP Family Medicine; Visit Provider Internal Medicine Cardiovascular Disease
DX: E87.1 Hypo-osmolality and hyponatremia (principal)
CPT/HCPCS: 36415; 80048

== ENCOUNTER 2025-04-26 10:22 | Outpatient (CLI) | payer MEDICARE, OTHER, SELFPAY ==
--- OUTSIDE RECORDS SUMMARY | 2025-04-26 10:56 | XMS_ITS | Clinical Summary ---
Author Organization [facility] [place] Kathy at the Medical Office Building Address [address] [place] [phone] Care Team Providers Care Pump Mechanic Name Role Phone Frank Frazier MD Primary [...] (MAGONATE) 27.5 mg magne- sium (500 mg) tabletIndicati ons:hypomagnes emia Take 1 tablet (500 mg total) by mouth daily Active fish oil-dha-epa 1,200-144-216 mg capsule Take by mouth Activ e cholecalcifero l (VITAMIN D-3) 89229 unit capsule Take 1 capsule (10,000 Units total) by mouth 2 (two) times a day Active vit C-vit I-xhqlagxp-gkw b 191 15-15-10 mg-unit-mcg capsule Take by mouth Active glucosamine/ch ondr todd A sod (OSTEO BI-FLEX ORAL) Take [...] FACE. 3 Active furosemide (LASIX) 20 mg tabletIndicati ons:Bilateral lower extremity edema Take 1 tablet (20 mg total) by mouth daily as needed (swelling) 30 tablet 1 5 Active Additional Information Patient not taking.Reported on 03/11/2025 losartan (COZAAR) 100 mg tablet Take 1 tablet (100 mg total) by mouth daily 90 tablet 3 5 Active hydroCHLOROthi azide 12.5 mg tablet Take 1 tablet/capsule (12.5 mg total) by mouth every morning 30 tablet/capsu le 11 5 04/16/20 25 Discontin ued(Other ) Active Problems Problem Noted Date Diagnosed Date Bilateral carotid bruits 03/11/2025 Bilateral lower extremity edema 09/05/2024 Mixed hyperlipidemia 05/25/2022 Nonrheumatic aortic valve stenosis 05/25/2022 Bradycardia 05/25/2022 CHAPA (dyspnea on exertion) 05/25/2022 S/P device closure of atrial septal defect 05/13 Visit for wound check 01/20/2021 Status post placement of implantable loop record er 01/19/2021 Overview (01/19/2021): [employer] Biomonitor III-Loop Recorder. DOI 01/14/2021. [employer] remote home monitoring. Facial droop as late [...] Encounters Date Type Department Care Team Description 04/25/2025 Telephone [facility] Cardiology [address] [place] [address] [place] [phone] Juan Moreno MD 04/16/2025 Results Follow-Up [facility] Cardiology [address] [place] [address] [place] [phone] Juan Moreno MD Basic metabolic panel 04/15/2025 8:00 AM CDT Ancillary Procedure [facility]iology [address] [place] [address] [place] [phone] Paroxysmal SVT (supraventricular tachycardia) (CMS/HCC) (HCC); Status post placement of implantable loop recorder; Cryptogenic stroke (HCC); Palpitations 04/02/2025 Telephone [facility] Cardiology [address] [place] [address] [place] [phone] Juan Moreno MD 03/13/2025 Results Follow-Up [facility] Cardiology [address] [place] [address] [place] [phone] Juan Moreno MD US Carotids Duplex Bilateral 03/12/2025 3:00 PM CDT Ancillary Procedure [facility] Vascular and Vein Surgery at [address] [place] [phone] Bilateral carotid bruits 03/11/2025 10:45 AM CDT Office Visit [facility] Cardiology [address] [place] [address] [place] [phone] Juan Moreno MD Mixed hyperlipidemia (Primary Dx); Bilateral carotid bruits; Essential hypertension; Nonrheumatic aortic valve stenosis; Paroxysmal SVT (supraventricular tachycardia) (CMS/HCC) (HCC) 03/04/2025 7:00 AM CDT Ancillary Procedure [facility] Card[facility] [address] [facility] [address] [place] [phone] Status post placement of implantable loop recorder (Primary Dx); Paroxysmal SVT (supraventricular tachycardia); Bradycardia; Cryptogenic stroke (HCC) from Last 3 Months Surgical History Surgery [...] 04/17/2012, 03/29/2011 Medical Devices Implanted Type Area Baking Assistant Device Identifier Shelf Expiration Date Model / Serial / Lot Implantable Loop Recorder Implantable Loop Recorder Bilatera l: Chest Wall [employer] 9-Pfo-025 Amplatzer 25mm 18mm 2 Disk Self Expandable Delivery System Patent - [id number] - [id number] Implanted:Qty: 1 on 01/30/2021 by Susie Pickering MD PhD at [facility] Septal Defect Closure Device [employer] 06/26/2025 9-PFO-02 5 / [id number] / [id number] Procedures Procedure Name Priority Date/Time Associated Diagnosis Comments DEVICE CHECK - REMOTE Routine 04/16/2025 9:14 AM CDT Paroxysmal SVT (supraventricular tachycardia) (CMS/HCC) (HCC) Status post placement of implantable loop recorder Cryptogenic stroke (HCC) Palpitations BASIC METABOLIC PANEL Routine 04/11/2025 Hyponatremia BASIC METABOLIC PANEL Routine 03/29/2025 Essential hypertension US CAROTIDS DUPLEX BILATERAL Schedule Routine, Read Routine (OP Routine) 03/12/2025 3:35 PM CDT Bilateral carotid bruits POCT LIPID PANEL Routine 03/11/2025 10:4 9 AM CDT Mixed hyperlipidemia DEVICE CHECK - REMOTE Routine 03/05/2025 8:11 AM CDT Paroxysmal SVT (supraventricular tachycardia) Bradycardia from Last 3 Months Results * DEVICE CHECK - REMOTE (04/16/2025 9:14 AM CDT) Anatomical Region Laterality Modality Other Narrative 04/16/2025 12:34 PM CDT [employer] III-Loop Recorder. Dx; Cryptogenic Stroke, Parox SVT, Palpitations. DOI 01/14/2021. [employer] remote home monitoring. Routine ILR remote. Normal device function. Battery function-Ok. Presenting rhythm- VS, 60 bpm. Counters; No HVR episodes, Asystole, or Patient Triggered episodes noted since implant 01/14/2021. 10 Bradycardia events recorded in August 2024, egm's Bradycardia with premature heart beats. 1626 Total AF episodes recorded since 01/15/21, egm's SA/SB/SR with PAC's, PVC's. 2516 ectopic beats noted. 3615 since implant 01/15/2021. Average HR 56 bpm. Medications; ASA 81 mg, Cozaar Lipitor. See scanned report. [employer] remote f/u 04/27/2025. Fiona Shore RN Juan Moreno MD [facility] Final Result * (ABNORMAL) Basic metabolic panel (04/11/2025) SCRIBED Sodium 127(A) 135 - 145 mmol/L EXTERNAL LAB SCRIBED Potassium 4.1 3.3 - 5.2 mmol/L EXTERNAL LAB SCRIBED Chloride 96(A) 97 - 110 mmol/L EXTERNAL LAB SCRIBED Carbon Dioxide 23 22 - 32 mmol/L EXTERNAL LAB SCRIBED Anion Gap 8 2 - 15 mmol/L EXTERNAL LAB SCRIBED Urea Nitrogen (BUN) 20 6 - 25 mg/dL EXTERNAL LAB SCRIBED Creatinine 1.04 0.80 - 1.30 mg/dL EXTERNAL LAB SCRIBED Glucose 98 70 - 199 mg/dL EXTERNAL LAB SCRIBED Calcium 8.8 8.5 - 10.3 mg/dL EXTERNAL LAB SCRIBED eGFR >60 >60 mL/min/1.7 3 m2 EXTERNAL LAB Blood 04/11/2025 Juan Moreno MD LAB BLOOD ORDERABLES Ivy l Result EXTERNAL LAB * (ABNORMAL) Basic metabolic panel (03/29/2025) SCRIBED Sodium 125(A) 135 - 145 mmol/L EXTERNAL LAB SCRIBED Potassium 4.2 3.3 - 5.2 mmol/L EXTERNAL LAB SCRIBED Chloride 93(A) 97 - 110 mmol/L EXTERNAL LAB SCRIBED Carbon Dioxide 25 22 - 32 mmol/L EXTERNAL LAB SCRIBED Anion Gap 7 2 - 15 mmol/L EXTERNAL LAB SCRIBED Urea Nitrogen (BUN) 16 6 - 25 mg/dL EXTERNAL LAB SCRIBED Creatinine 1.07 0.80 - 1.30 mg/dL EXTERNAL LAB SCRIBED Glucose 103 70 - 199 mg/dL EXTERNAL LAB SCRIBED Calcium 9.2 8.5 - 10.3 mg/dL EXTERNAL LAB SCRIBED eGFR >60 >60 mL/min/1.7 3 m2 EXTERNAL LAB Blood 03/29/2025 Juan Moreno MD LAB BLOOD ORDERABLES Ivy [facility] Result EXTERNAL LAB * US Carotids Duplex Bilateral (03/12/2025 3:35 PM CDT) Anatomical Region Laterality Modality Vascular Bilateral Ultrasound 03/12/2025 3:06 PM CDT Narrative 03/13/2025 9:01 AM CDT Vascular & Vein Surgery [address] [place] [address] Carotid Duplex Ultrasound Report Patient Name: SUSIE TINEO : 1940 (84y 8m) Study Date: 03/12/2025 3:06:18 PM Sex: M Chemistry Technologist: DAMARIS Location: [facility] Ref Provider: JUAN MORENO [...] MD - 03/13/2025 Vascular & Vein Surgery [facility] [place] [address] Carotid Duplex Ultrasound Report Patient Name: SUSIE TINEO : 1940 (84y 8m) Study Date: 03/12/2025 3:06:18 PM Sex: M Chemistry Technologist: Location: [facility] Ref Provider: JUAN MORENO Quality: [...] POCT lipid panel (03/11/2025 10:49 AM CDT) [facility] Cholesterol, POC 114 <200 MG/DL Comment:GLU [...] Modality Other Narrative 03/14/2025 5:10 PM CDT [employer] Biomonitor III-Loop Recorder. Dx; Cryptogenic Stroke, Parox [...] Result from Last 3 Months Insurance MEDICARE [facility] MEDICARE [facility] MEDICARE [facility] Advance Directives For more information, please contact: [phone] Documents on File Type Date Recorded Patient Instructor Apparel Manufacture Expl anation Power of Testing Lead 05/11/2021 8:12 AM Pt d id not bring. * Full Code (Latest Code Status on File) Date Activated Date Inactivated Comments 01/30/2021 9:02 AM 01/30/2021 7:28 PM Care Teams Pump Mechanic Relationship Specialty Start Date End Date Frank Frazier MD PCP - General Family Medicine 03/27/20
--- OUTSIDE RECORDS SUMMARY | 2025-04-26 10:56 | XMS_ITS | Encounter Summary ---
Author Organization [facility] Address [address] [place] [address] Care Team Providers Care Metalizer Field Operation Name Role Phone Frank Frazier MD Primary Care Provider Encounter Details Date Type Department Care Team (Late st Contact Info) Description 03/13/2025 Results Follow-Up [facility] Cardiology [address] [place] [phone] Russ Pitts MD [address] [facility] [address] [place] [address] US Carotids Duplex Bilateral Social [...] on filedocumented in this encounter Care Teams Metalizer Field Operation Relationship Specialty Start Date End Date Frank Frazier MD PCP - General Family Medicine 03/27/20 documented as of this encounter
--- OUTSIDE RECORDS SUMMARY | 2025-04-26 10:56 | XMS_ITS | Encounter Summary ---
Author Organization [facility] Healthcare Address [address] [place] [address] Care Team Providers Care Electric Organ Inspector And Repairer Name Role Phone Frank Farzier MD Primary Care Provider Encounter Details Date Type Department Care Team (Late st Contact Info) Description 04/25/[address] [facility] Cardiology [address] [place] [phone] Russ Pitts MD [address] [facility] [address] [facility] [address] [place] [address] Social History Tobacco Use Types Packs/Day Years [...] on file documented as of this encounter Miscellaneous Notes * Telephone Encounter - Bhumika Herrera RN - 04/25/2025 12:20 PM CDT Lab order faxed to . * Telephone Encounter - Asia Dominguez - 04/25/2025 12:04 PM CDT Patient is currently at Lab sitting at [facility] desk waiting for lab orders for a basic metabolic panel. She is requesting this to be sent over. Please advise. Thank you. documented in this encounter Plan of Treatment Not on file documented as of this encounter Visit Diagnoses Not on filedocumented in this encounter Care Teams Electric Organ Inspector And Repairer Relationship Specialty Start Date End Date Frank Frazier MD PCP - General Family Medicine 03/27/20 documented as of this encounter
[2025-04-26 11:22] LABS: Anion Gap 8 mmol/L (4-12); Blood Urea Nitrogen 18 mg/dL (9-20); Calcium 9.1 mg/dL (8.4-10.2); Carbon Dioxide 24 mmol/L (22-30); Chloride 101 mmol/L (98-107); Estimated Glomerular Filt Rate > 60; Glucose 113 mg/dL (65-110); Potassium 4.5 mmol/L (3.4-5.0); Sodium 133 mmol/L (137-145)
== END 2025-04-26 10:23 | disposition home or self-care (01) ==
PROVIDERS: PCP Family Medicine; Visit Provider Internal Medicine Cardiovascular Disease
DX: I10 Essential (primary) hypertension (principal)
CPT/HCPCS: 36415; 80048

== ENCOUNTER 2025-05-16 09:30 | Outpatient (CLI) | payer MEDICARE, OTHER, SELFPAY ==
[2025-05-16 10:20] LABS: Anion Gap 6 mmol/L (4-12); Blood Urea Nitrogen 21 mg/dL (9-20); Calcium 9.3 mg/dL (8.4-10.2); Carbon Dioxide 24 mmol/L (22-30); Chloride 103 mmol/L (98-107); Estimated Glomerular Filt Rate > 60; Glucose 130 mg/dL (65-110); Potassium 4.7 mmol/L (3.4-5.0); Sodium 133 mmol/L (137-145)
== END 2025-05-16 09:31 | disposition home or self-care (01) ==
LOC: ANHLAB 09:33
PROVIDERS: PCP Family Medicine; Visit Provider Internal Medicine Cardiovascular Disease
DX: I10 Essential (primary) hypertension (principal)
CPT/HCPCS: 36415; 80048